=== PATIENT | female | born 2000 | race Hispanic/Latino ===

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

== ENCOUNTER 2021-03-12 21:15 | Emergency (ER) | payer SELFPAY ==
--- OUTSIDE RECORDS SUMMARY | 2021-03-12 21:23 | XMS REPORT | Continuity of Care Document ---
:2000 Author Organization [facility] t Address [address] [place] [address] Care Team Providers Name Role Phone Brendan COUGHLIN Attending Clinician Akinsidanyell WHCNP, C Attending Clinician DARIO C Attending Clinician Unavailable Cristian VARELA Attending Clinician Unavailable Evgeny Cobb MD Attending Clinician Mario DOYLE, N Attending Clinician Hussein FLORES Attending Clinician Unavailable Hussein Flores MD Attending Clinician 2, Lab Attending Clinician Unavailable Jorge A MARTIN Attending Clinician Unavailable Anders DOYLE, F Attending Clinician Visit, Nurse Attending Clinician Unavailable Payers Payer Name Policy Type Policy Number Effective Date Expiration Date [facility] [id number] 2018 [facility] MEDICAID 00:00:00 Problems Condition Condition Condition Status Onset Resolution Last Treating Co mments Source Name Details Category Date Date Treatment Clinician Date Other Other Disease Active Univers general general 8-02 [place] of counseling [place] advice and advice 00 Me dical for for Branch contracept contracept henrry henrry management management Chlamydia Chlamydia Disease Active Uni vers trachomati trachomati 9-25 it y of s s 00:00: [place] infection infection 00 Medi zofia of lower of lower Branch genitourin genitourin zainab sites zainab sites BMI BMI Disease Active Univers 23.0-23.9, 23.0-23.9, 9-24 it y of adult adult 00:00: Medical Branch Need for Need for Disease Active Unive rs HPV HPV 01-10 ity of vaccinatio vaccinatio 00:00[place] Marijuana Marijuana Disease Active Uni vers use use 01-10 ity of 00:00: [place] [facility] History of History of Disease Active U nivers headache headache 01-10 ity of 00:00: [place] [facility] Disease Active Univers control control 01-10 [place] of counseling counseling 00:00: [place] [facility] Allergies, Adverse Reactions, Alerts Allergy Allergy Status Severity Reaction(s) Onset Inactive Treating Comm ents Source Name Type Date Date Clinician Andre Propensi Active Swelling Jaw Univ ers h ty to 08 swells up ity of Derived adverse 00:00: [place] reaction 00 Medical s Branch SHELLFIS DRUG Active Swelling Univer s H INGREDI 08 ity of DERIVED 00:00: [place] [facility] NO KNOWN Drug Active Univers ALLERGIE Class ity of S [facility] Social History Social Habit Start Date Stop Date Quantity Comments Source Exposure to Not sure [facility] SARS-CoV-2 [place] [facility] (event) Branch History SDOH University o f Alcohol Std [place] [facility] Drinks Branch History [facility] University o f Alcohol Binge [place] [facility] Tobacco use and 2020-11-18 2020-11-18 Never used Universit y of exposure 00:00:00 00:00:00 [facility] Alcohol intake 2020-11-18 2020-11-18 Ex-drinker University of 00:00:00 00:00:00 (finding) [facility] Alcohol Comment 2020-04-03 2020-04-03 last drank Universit y of 00:00:00 00:00:00 02/2020 [facility] History SDOH 2019-01-10 2019-01-10 1 University o f Alcohol Frequency 00:00:00 00:00:00 [facility] edical [place] Sex Assigned At 2000 2001 Universit y of 00:00:00 00:00:00 [facility] Smoking Status Start Date Stop Date Source Never smoker [facility] [place] [facility] Medications Ordered Filled Start Stop Current Ordering Indication Dosage Frequency Signature Comments Components Source Medication Medication Date Date Medication? Clinician (SIG) Name Name cefTRIAXone 2020- No 1000mg 1,000 mg, Univers (ROCEPHIN) 12-03 IV ity of 1,000 mg in 07:45: 07:25 Piggyback, [place] NaCl 0.9% 00 :00 ONCE, 1 Medical (NS) 50 mL dose, [facility] MINI-BAG 12/03/20 at 0245, Administer over 30 Minutes, 50 mL
R mel for Anti-Infec tive: Documented Infection< br>Documen rhina Infection Site: Urine
D uration of Therapy: Other (see Comments) dexamethaso 2020- No 10mg 10 mg, Uni vers ne 12-03 Slow IV ity of (DECADRON 07:00: 06:05 Push, [place] PHOSPHATE) 00 :00 ONCE, 1 Medica l injection dose, [facility] h 10 mg 12/03/20 at 0200, Routine ketorolac 2020- No 30mg 30 mg, Unive rs (TORADOL) 12-03 Slow IV ity of injection 07:00: 06:05 Push, [place] 30 mg 00 :00 ONCE, 1 Medical dose, [facility] 12/03/20 at 0200, Routine
board member approving Restricted medication : RANJIT TIMMONS ketorolac Yes [id number] 10mg Take 1 Un jose antonio 10 mg 8-17 tablet by ity of tablet 00:00: mouth [place] 00 every 6 Medical (six) Branch hours as needed for Pain (scale 1-3) or Pain (scale 4-6). cephALEXin Yes [id number] 500mg Take 1 Univers (KEFLEX) 8-17 capsule by ity o f 500 mg 00:00: mouth 4 [place] capsule 00 (four) Medical times Branch daily. acetaminoph Yes Take by Un jose antonio en (TYLENOL 8-02 mouth. ity of ORAL) 21:07: [address] Branch acetaminoph Yes Take by Un jose antonio en (TYLENOL 8-02 mouth. ity of ORAL) 21:07: [address] acetaminoph 0 Yes Take by Un jose antonio en (TYLENOL 8-02 mouth. ity of ORAL) 21:07: [address] Branch doxycycline 2020-0 Yes [id number] 100mg Take 1 Univers hyclate 100 7-10 capsule by it y of mg capsule 00:00: mouth [place] (two) Medical times Branch daily. polyethylen 2020-0 Yes [id number] 1{packe Take 1 Univers e glycol 7-10 t} Packet by ity of 3350 00:00: mouth [place] (MIRALAX) 00 every 6 Medical 17 gram (six) Branch powder hours as needed for Constipati on for up to 12 doses. doxycycline 2020-0 Yes [id number] 100mg Take 1 Univers hyclate 100 7-10 capsule by it y of mg capsule 00:00: mouth [place] (two) Medical times Branch daily. polyethylen 2020-0 Yes [id number] 1{packe Take 1 Univers e glycol 7-10 t} Packet by ity of 3350 00:00: mouth [place] (MIRALAX) 00 every 6 Medical 17 gram (six) Branch powder hours as needed for Constipati on for up to 12 doses. doxycycline 2020-0 Yes [id number] 100mg Take 1 Univers hyclate 100 7-10 capsule by it y of mg capsule 00:00: mouth [place] (two) Medical times Branch daily. polyethylen 2020-0 Yes [id number] 1{packe Take 1 Univers e glycol 7-10 t} Packet by ity of 3350 00:00: mouth [place] (MIRALAX) 00 every 6 Medical 17 gram (six) Branch powder hours as needed for Constipati on for up to 12 doses. doxycycline 2020-0 Yes [id number] 100mg Take 1 Univers hyclate 100 7-10 capsule by it y of mg capsule 00:00: mouth 2 [place] 00 (two) Medical times Branch daily. polyethylen 2020-0 Yes [id number] 1{packe Take 1 Univers e glycol 7-10 t} Packet by ity of 3350 00:00: mouth [place] (MIRALAX) 00 every 6 Medical 17 gram (six) Branch powder hours as needed for Constipati on for up to 12 doses. doxycycline 2020-0 Yes [id number] 100mg Take 1 Univers hyclate 100 7-10 capsule by it y of mg capsule 00:00: mouth 2 [place] 00 (two) Medical times Branch daily. polyethylen Yes [id number] 1{packe Take 1 Univers e glycol 7-10 t} Packet by ity of 3350 00:00: mouth [place] (MIRALAX) 00 every 6 Medical 17 gram (six) Branch powder hours as needed for Constipati on for up to 12 doses. doxycycline Yes [id number] 100mg Take 1 Univers hyclate 100 7-10 capsule by it y of mg capsule 00:00: mouth 2 [place] 00 (two) Medical times Branch daily. polyethylen Yes [id number] 1{packe Take 1 Univers e glycol 7-10 t} Packet by ity of 3350 00:00: mouth [place] (MIRALAX) 00 every 6 Medical 17 gram (six) Branch powder hours as needed for Constipati on for up to 12 doses. doxycycline Yes [id number] 100mg Take 1 Univers hyclate 100 7-10 capsule by it y of mg capsule 00:00: mouth 2 [place] 00 (two) Medical times Branch daily. polyethylen Yes [id number] 1{packe Take 1 Univers e glycol 7-10 t} Packet by ity of 3350 00:00: mouth [place] (MIRALAX) 00 every 6 Medical 17 gram (six) Branch powder hours as needed for Constipati on for up to 12 doses. magnesium 2020- No [id number] 300mL Take 300 Univers citrate 7-10 07-11 mL by ity of solution 00:00: 04:59 [place] 00 :00 now for 1 Medical dose. Branch diphenhydrA 2020- No 25mg 25 mg, Uni vers MINE 09-24-08 Slow IV ity of (BENADRYL) 08:00: 07:37 [place], [place] injection 00 :00 ONCE, 1 Medical 25 mg dose, Tue Branch 09/24/20 at 0300, STAT metoclopram 2020- No 10mg 10 mg, Uni vers jose roberto HCl 09-24-08 Slow IV ity of (REGLAN) 08:00: 07:37 Push, [place] injection 00 :00 ONCE, 1 Medical 10 mg dose, Tue Branch 09/24/20 at 0300, GURDEEP ketorolac 2020- No 30mg 30 mg, Unive rs (TORADOL) 09-24 06-08 Slow IV ity of injection 08:00: 07:37 [place], [place] 30 mg 00 :00 ONCE, 1 Medical dose, [facility] Branch 09/24/20 at 0300, Routine
board member approving Restricted medication : RANJIT TIMMONS NaCl 0.9% 2020- No 1000mL at 999 Uni vers (NS) bolus 09-24 06-08 mL/hr, ity of infusion 08:00: 09:01 1,000 mL, [place] as 1,000 mL 00 :00 IV Medical Infusion, Branch ONCE, 1 dose, [facility] 09/24/20 at 0300, STAT diclofenac 0 Yes [id number] 75mg Take 1 U nivers 75 mg EC 6-08 tablet by ity of tablet 00:00: mouth 2 [place] 00 (two) Medical times Branch daily with meals. cefpodoxime Yes [id number] 100mg Take 1 Univers 100 mg 6-08 tablet by ity of tablet 00:00: mouth 2 [place] (two) Medical times [place] daily. hyoscyamine [id number] 1 Univers sulfate 6-08 tablet ity of (LEVSIN/SL) 00:00: under the [place] 0.125 mg 00 tongue Medical sublingual every 6 Branch tablet (six) hours as needed (abdominal pain, pelvic p[ain or cramping). ondansetron 0 Yes [id number] 4mg Take 1 Univers 4 mg 6-08 tablet by ity of disintegrat 00:00: mouth [place] ing tablet 00 every 8 Medica l (eight) Branch hours as needed for Nausea and Vomiting (N/V). acetaminoph 0 Yes [id number] 650mg Take 1 Univers en (TYLENOL 6-08 tablet by ity of ARTHRITIS 00:00: mouth [place] PAIN) 650 00 every 8 Medical mg CR (eight) Branch tablet hours as needed for Pain. diclofenac 2020-0 Yes [id number] 75mg Take 1 U nivers 75 mg EC 6-08 tablet by ity of tablet 00:00: mouth (two) Medical times Branch daily with meals. cefpodoxime 2020-0 Yes [id number] 100mg Take 1 Univers 100 mg 6-08 tablet by ity of tablet 00:00: mouth (two) Medical times Branch daily. hyoscyamine 2020-[id number] 1 Univers sulfate 6-08 tablet ity of (LEVSIN/SL) 00:00: under the [place] 0.125 mg 00 tongue Medical sublingual every 6 Branch tablet (six) hours as needed (abdominal pain, pelvic p[ain or cramping). ondansetron 2020-0 Yes [id number] 4mg Take 1 Univers 4 mg 6-08 tablet by ity of disintegrat 00:00: mouth [place] ing tablet 00 every 8 Medica l (eight) Branch hours as needed for Nausea and Vomiting (N/V). acetaminoph 2020-0 Yes [id number] 650mg Take 1 Univers en (TYLENOL 6-08 tablet by ity of ARTHRITIS 00:00: mouth [place] PAIN) 650 00 every 8 Medical mg CR (eight) Branch tablet hours as needed for Pain. diclofenac 2020-0 Yes [id number] 75mg Take 1 U nivers 75 mg EC 6-08 tablet by ity of tablet 00:00: mouth (two) Medical times Branch daily with meals. cefpodoxime 2020-0 Yes [id number] 100mg Take 1 Univers 100 mg 6-08 tablet by ity of tablet 00:00: mouth (two) Medical times Branch daily. hyoscyamine 2020-[id number] 1 Univers sulfate 6-08 tablet ity of (LEVSIN/SL) 00:00: under the [place] 0.125 mg 00 tongue Medical sublingual every 6 Branch tablet (six) hours as needed (abdominal pain, pelvic p[ain or cramping). ondansetron 2020-0 Yes [id number] 4mg Take 1 Univers 4 mg 6-08 tablet by ity of disintegrat 00:00: mouth [place] ing tablet 00 every 8 Medica l (eight) Branch hours as needed for Nausea and Vomiting (N/V). acetaminoph 2020-0 Yes [id number] 650mg Take 1 Univers en (TYLENOL 6-08 tablet by ity of ARTHRITIS 00:00: mouth [place] PAIN) 650 00 every 8 Medical mg CR (eight) Branch tablet hours as needed for Pain. diclofenac 2020-0 Yes [id number] 75mg Take 1 U nivers 75 mg EC 6-08 tablet by ity of tablet 00:00: mouth (two) Medical times Branch daily with meals. cefpodoxime 2020-0 Yes [id number] 100mg Take 1 Univers 100 mg 6-08 tablet by ity of tablet 00:00: mouth (two) Medical times Branch daily. hyoscyamine 2020-[id number] 1 Univers sulfate 6-08 tablet ity of (LEVSIN/SL) 00:00: under the [place] 0.125 mg 00 tongue Medical sublingual every 6 Branch tablet (six) hours as needed (abdominal pain, pelvic p[ain or cramping). ondansetron 2020-0 Yes [id number] 4mg Take 1 Univers 4 mg 6-08 tablet by ity of disintegrat 00:00: mouth [place] ing tablet 00 every 8 Medica l (eight) Branch hours as needed for Nausea and Vomiting (N/V). acetaminoph 2020-0 Yes [id number] 650mg Take 1 Univers en (TYLENOL 6-08 tablet by ity of ARTHRITIS 00:00: mouth [place] PAIN) 650 00 every 8 Medical mg CR (eight) Branch tablet hours as needed for Pain. diclofenac 2020-0 Yes [id number] 75mg Take 1 U nivers 75 mg EC 6-08 tablet by ity of tablet 00:00: mouth (two) Medical times Branch daily with meals. cefpodoxime 2020-0 Yes [id number] 100mg Take 1 Univers 100 mg 6-08 tablet by ity of tablet 00:00: mouth (two) Medical times Branch daily. hyoscyamine 2020-[id number] 1 Univers sulfate 6-08 tablet ity of (LEVSIN/SL) 00:00: under the [place] 0.125 mg 00 tongue Medical sublingual every 6 Branch tablet (six) hours as needed (abdominal pain, pelvic p[ain or cramping). ondansetron 2021-0 Yes [id number] 4mg Take 1 Univers 4 mg 6-08 tablet by ity of disintegrat 00:00: mouth [place] ing tablet 00 every 8 Medica l (eight) Branch hours as needed for Nausea and Vomiting (N/V). acetaminoph 2021-0 Yes [id number] 650mg Take 1 Univers en (TYLENOL 6-08 tablet by ity of ARTHRITIS 00:00: mouth [place] PAIN) 650 00 every 8 Medical mg CR (eight) Branch tablet hours as needed for Pain. diclofenac 2020-0 Yes [id number] 75mg Take 1 U nivers 75 mg EC 6-08 tablet by ity of tablet 00:00: mouth (two) Medical times Branch daily with meals. cefpodoxime 1-0 Yes [id number] 100mg Take 1 Univers 100 mg 6-08 tablet by ity of tablet 00:00: mouth (two) Medical times Branch daily. hyoscyamine 2020-[id number] 1 Univers sulfate 6-08 tablet ity of (LEVSIN/SL) 00:00: under the [place] 0.125 mg 00 tongue Medical sublingual every 6 Branch tablet (six) hours as needed (abdominal pain, pelvic p[ain or cramping). ondansetron 2020-0 Yes [id number] 4mg Take 1 Univers 4 mg 6-08 tablet by ity of disintegrat 00:00: mouth [place] ing tablet 00 every 8 Medica l (eight) Branch hours as needed for Nausea and Vomiting (N/V). acetaminoph 2020-0 Yes [id number] 650mg Take 1 Univers en (TYLENOL 6-08 tablet by ity of ARTHRITIS 00:00: mouth [place] PAIN) 650 00 every 8 Medical mg CR (eight) Branch tablet hours as needed for Pain. diclofenac 1-0 Yes [id number] 75mg Take 1 U nivers 75 mg EC 6-08 tablet by ity of tablet 00:00: mouth (two) Medical times Branch daily with meals. cefpodoxime 2021-0 Yes [id number] 100mg Take 1 Univers 100 mg 6-08 tablet by ity of tablet 00:00: mouth (two) Medical times Branch daily. hyoscyamine 2021-[id number] 1 Univers sulfate 6-08 tablet ity of (LEVSIN/SL) 00:00: under the [place] 0.125 mg 00 tongue Medical sublingual every 6 Branch tablet (six) hours as needed (abdominal pain, pelvic p[ain or cramping). ondansetron 2020-0 Yes [id number] 4mg Take 1 Univers 4 mg 6-08 tablet by ity of disintegrat 00:00: mouth [place] ing tablet 00 every 8 Medica l (eight) Branch hours as needed for Nausea and Vomiting (N/V). acetaminoph 2020-0 Yes [id number] 650mg Take 1 Univers en (TYLENOL 6-08 tablet by ity of ARTHRITIS 00:00: mouth [place] PAIN) 650 00 every 8 Medical mg CR (eight) Branch tablet hours as needed for Pain. diclofenac 2020-0 Yes [id number] 75mg Take 1 U nivers 75 mg EC 6-08 tablet by ity of tablet 00:00: mouth 2 00 (two) Medical times Branch daily with meals. cefpodoxime 2020-0 Yes [id number] 100mg Take 1 Univers 100 mg 6-08 tablet by ity of tablet 00:00: mouth 2 [place] 00 (two) Medical times Branch daily. hyoscyamine 2020-[id number] 1 Univers sulfate 6-08 tablet ity of (LEVSIN/SL) 00:00: under the [place] 0.125 mg 00 tongue Medical sublingual every 6 Branch tablet (six) hours as needed (abdominal pain, pelvic p[ain or cramping). ondansetron 2020-0 Yes [id number] 4mg Take 1 Univers 4 mg 6-08 tablet by ity of disintegrat 00:00: mouth [place] ing tablet 00 every 8 Medica l (eight) Branch hours as needed for Nausea and Vomiting (N/V). acetaminoph 2020-0 Yes [id number] 650mg Take 1 Univers en (TYLENOL 6-08 tablet by ity of ARTHRITIS 00:00: mouth [place] PAIN) 650 00 every 8 Medical mg CR (eight) Branch tablet hours as needed for Pain. diclofenac 2020-0 Yes [id number] 75mg Take 1 U nivers 75 mg EC 6-08 tablet by ity of tablet 00:00: mouth 2 [place] 00 (two) Medical times Branch daily with meals. cefpodoxime Yes [id number] 100mg Take 1 Univers 100 mg 6-08 tablet by ity of tablet 00:00: mouth 2 [place] 00 (two) Medical times Branch daily. hyoscyamine [id number] 1 Univers sulfate 6-08 tablet ity of (LEVSIN/SL) 00:00: under the [place] 0.125 mg 00 tongue Medical sublingual every 6 Branch tablet (six) hours as needed (abdominal pain, pelvic p[ain or cramping). ondansetron Yes [id number] 4mg Take 1 Univers 4 mg 6-08 tablet by ity of disintegrat 00:00: mouth [place] ing tablet 00 every 8 Medica l (eight) Branch hours as needed for Nausea and Vomiting (N/V). acetaminoph Yes [id number] 650mg Take 1 Univers en (TYLENOL 6-08 tablet by ity of ARTHRITIS 00:00: mouth [place] PAIN) 650 00 every 8 Medical mg CR (eight) Branch tablet hours as needed for Pain. metroNIDAZO 2019-04 Yes [id number] 500mg Take 1 Univers LE 500 mg 2-22 tablet by ity o f tablet 00:00: mouth [place] 00 every 12 Medical (twelve) Branch hours. metroNIDAZO 2019-04 Yes [id number] 500mg Take 1 Univers LE 500 mg 2-22 tablet by ity o f tablet 00:00: mouth [place] 00 every 12 Medical (twelve) Branch hours. metroNIDAZO 2019-04 Yes [id number] 500mg Take 1 Univers LE 500 mg 2-22 tablet by ity o f tablet 00:00: mouth [place] 00 every 12 Medical (twelve) Branch hours. metroNIDAZO 2019-04 Yes [id number] 500mg Take 1 Univers LE 500 mg 2-22 tablet by ity o f tablet 00:00: mouth [place] 00 every 12 Medical (twelve) Branch hours. metroNIDAZO 2019-04 Yes [id number] 500mg Take 1 Univers LE 500 mg 2-22 tablet by ity o f tablet 00:00: mouth [place] 00 every 12 Medical (twelve) Branch hours. metroNIDAZO 2019-04 Yes [id number] 500mg Take 1 Univers LE 500 mg 2-22 tablet by ity o f tablet 00:00: mouth [place] 00 every 12 Medical (twelve) Branch hours. metroNIDAZO 2020-1 Yes [id number] 500mg Take 1 Univers LE 500 mg 2-22 tablet by ity o f tablet 00:00: mouth [place] 00 every 12 Medical (twelve) Branch hours. metroNIDAZO 2020-1 Yes [id number] 500mg Take 1 Univers LE 500 mg 2-22 tablet by ity o f tablet 00:00: mouth [place] 00 every 12 Medical (twelve) Branch hours. metroNIDAZO 2020-1 Yes [id number] 500mg Take 1 Univers LE 500 mg 2-22 tablet by ity o f tablet 00:00: mouth [place] 00 every 12 Medical (twelve) Branch hours. metroNIDAZO 2020-1 Yes [id number] 500mg Take 1 Univers LE 500 mg 2-22 tablet by ity o f tablet 00:00: mouth [place] 00 every 12 Medical (twelve) Branch hours. metroNIDAZO 2020-1 Yes [id number] 500mg Take 1 Univers LE 500 mg 2-22 tablet by ity o f tablet 00:00: mouth [place] 00 every 12 Medical (twelve) Branch hours. maalox:diph 2019- 2020- No 15mL 15 mL, Uni vers enhydrAMINE 12-10 Oral, ity of :lidocaine 21:15: 20:26 ONCE, 1 [place] as 2 % viscous 00 :00 dose, Mon Med ical 1:1:1 12/11/19 at [place] ([facility] 1615, [facility]) Routine oral suspension 15 mL ketorolac 2019- No 30mg 30 mg, Unive rs (TORADOL) 12-10 Intramuscu ity of injection 21:15: 20:26 [place], ONCE, [place] 30 mg 00 :00 1 dose, Medical [facility] 12/11/19 at 1615, [facility] : DENNIS HUNTER dexamethaso 2019- No 10mg 10 mg, Uni vers ne 12-10 Oral, ity of (DECADRON 21:15: 20:26 ONCE, 1 [place] PHOSPHATE) 00 :00 dose, Mon Medi zofia injection 8/24/20 at [facility] ch 10 mg 1615, Routine cephALEXin 2020- No [id number] 500mg Take 1 Univers 500 mg 12-10 capsule by ity of capsule 00:00: 04:59 mouth 2 [place] 00 :00 (two) Medical times Branch daily for 10 days. azithromyci 2019- No [id number] 1000mg Take 2 Univers n 3-06 03-07 tablets by ity of (ZITHROMAX) 00:00: 05:59 mouth once [place] 500 mg 00 :00 now for 1 Medical tablet dose. Branch medroxyPROG 2018-04 Yes 150mg Unive rs ESTERone 0-08 ity of (DEPO-PROVE 13:45: [place] RA) 00 Medical injection Branch 150 mg medroxyPROG 2018-04 Yes 150mg Unive rs ESTERone 0-08 ity of (DEPO-PROVE 13:45: [place] RA) 00 Medical injection Branch 150 mg medroxyPROG 2018-04 Yes 150mg Unive rs ESTERone 0-08 ity of (DEPO-PROVE 13:45: [place] RA) 00 Medical injection Branch 150 mg medroxyPROG 2018-04 Yes 150mg Unive rs ESTERone 0-08 ity of (DEPO-PROVE 13:45: [place] RA) 00 Medical injection Branch 150 mg medroxyPROG 2018-04 Yes 150mg Unive rs ESTERone 0-08 ity of (DEPO-PROVE 13:45: [place] RA) 00 Medical injection Branch 150 mg medroxyPROG 2018-04 Yes 150mg Unive rs ESTERone 0-08 ity of (DEPO-PROVE 13:45: [place] RA) 00 Medical injection Branch 150 mg medroxyPROG 2018-04 Yes 150mg Unive rs ESTERone 0-08 ity of (DEPO-PROVE 13:45: [place] RA) 00 Medical injection Branch 150 mg medroxyPROG 2018-04 Yes 150mg Unive rs ESTERone 0-08 ity of (DEPO-PROVE 13:45: [place] RA) 00 Medical injection Branch 150 mg medroxyPROG 2018-04 Yes 150mg Unive rs ESTERone 0-08 ity of (DEPO-PROVE 13:45: [place] RA) 00 Medical injection Branch 150 mg medroxyPROG 2018-04 Yes 150mg Unive rs ESTERone 0-08 ity of (DEPO-PROVE 13:45: [place] RA) 00 Medical injection Branch 150 mg medroxyPROG 2018-04 Yes 150mg Unive rs ESTERone 0-08 ity of (DEPO-PROVE 13:45: [place] RA) 00 Medical injection Branch 150 mg medroxyPROG 2018-04 Yes 150mg Unive rs ESTERone 0-08 ity of (DEPO-PROVE 13:45: [place] RA) 00 Medical injection Branch 150 mg medroxyPROG 2018-04 Yes 150mg Unive rs ESTERone 0-08 ity of (DEPO-PROVE 13:45: [place] RA) 00 Medical injection Branch 150 mg medroxyPROG 2018-04 Yes 150mg Unive rs ESTERone 0-08 ity of (DEPO-PROVE 13:45: [place] RA) 00 Medical injection Branch 150 mg medroxyPROG 2018-04 Yes 150mg Unive rs ESTERone 0-08 ity of (DEPO-PROVE 13:45: [place] RA) 00 Medical injection Branch 150 mg medroxyPROG 2018-04 Yes 150mg Unive rs ESTERone 0-08 ity of (DEPO-PROVE 13:45: [place] RA) 00 Medical injection Branch 150 mg medroxyPROG 2018-04 Yes 150mg Unive rs ESTERone 0-08 ity of (DEPO-PROVE 13:45: [place] RA) 00 Medical injection Branch 150 mg medroxyPROG 2018-04 Yes 150mg Unive rs ESTERone 0-08 ity of (DEPO-PROVE 13:45: [place] RA) 00 Medical injection Branch 150 mg medroxyPROG 2018-04 Yes 150mg Unive rs ESTERone 0-08 ity of (DEPO-PROVE 13:45: [place] RA) 00 Medical injection Branch 150 mg Immunizations Ordered Immunization Filled Immunization Date Status Commen ts Source Name Name HPV9 2019-06-14 Completed University of 00:00:00 [facility] HPV9 2019-06-14 Completed University of 00:00:00 [facility] HPV9 2019-06-14 Completed University of 00:00:00 [facility] HPV9 2019-06-14 Completed University of 00:00:00 [facility] HPV9 2019-06-14 Completed University of 00:00:00 [facility] HPV9 2019-06-14 Completed University of 00:00:00 [facility] HPV9 2019-06-14 Completed University of 00:00:00 [facility] HPV9 2019-06-14 Completed University of 00:00:00 [place] [facility] HPV9 2019-06-14 Completed University of 00:00:00 [place] [facility] HPV9 2019-06-14 Completed University of 00:00:00 [place] [facility] HPV9 2019-06-14 Completed University of 00:00:00 [place] [facility] HPV9 2019-06-14 Completed University of 00:00:00 [place] [facility] HPV9 2019-06-14 Completed University of 00:00:00 [place] [facility] HPV9 2019-06-14 Completed University of 00:00:00 [place] [facility] HPV9 2019-06-14 Completed University of 00:00:00 [place] [facility] HPV9 2019-06-14 Completed University of 00:00:00 [place] [facility] HPV9 2019-06-14 Completed University of 00:00:00 [place] [facility] HPV9 2019-06-14 Completed University of 00:00:00 [place] [facility] HPV9 2019-06-14 Completed [facility] 00:00:00 [facility] Influenza Virus 2019-04-18 Completed [facility] Vaccine Quad .5 mL 00:00:00 [facility] Influenza Virus 2019-04-18 Completed [facility] Vaccine Quad .5 mL 00:00:00 [facility] Influenza Virus 2019-04-18 Completed [facility]ine Quad .5 mL 00:00:00 [facility] Influenza Virus 2019-04-18 Completed [facility]ine [facility] .5 mL 00:00:00 [facility] Influenza Virus 2019-04-18 Completed [facility]ine Quad .5 mL 00:00:00 [facility] Influenza Virus 2019-04-18 Completed [facility] Vaccine Quad .5 mL 00:00:00 [facility] Influenza Virus 2019-04-18 Completed [facility]ine Quad .5 mL 00:00:00 [facility] Influenza Virus 2019-04-18 Completed [facility]ine [facility] .5 mL 00:00:00 [facility] Influenza Virus 2019-04-18 Completed [facility] Vaccine Quad .5 mL 00:00:00 [facility] Influenza Virus 2019-04-18 Completed [facility] Vaccine Quad .5 mL 00:00:00 [facility] Influenza Virus 2019-04-18 Completed [facility] Vaccine Quad .5 mL 00:00:00 [facility] Influenza Virus 2019-04-18 Completed [facility] Vaccine Quad .5 mL 00:00:00 [facility] Influenza Virus 2019-04-18 Completed [facility] Vaccine Quad .5 mL 00:00:00 [facility] Influenza Virus 2019-04-18 Completed [facility] Quad .5 mL 00:00:00 [facility] Influenza Virus 2019-04-18 Completed [facility] Vaccine Quad .5 mL 00:00:00 [facility] Influenza Virus 2019-04-18 Completed [facility]ine Quad .5 mL 00:00:00 [facility] Influenza Virus 2019-04-18 Completed [facility] Vaccine Quad .5 mL 00:00:00 [facility] 6+ MO [facility] Influenza Virus 2019-04-18 Completed [facility] Vaccine Quad .5 mL 00:00:00 [facility] 6+ MO [facility] Influenza Virus 2019-04-18 Completed [facility] Vaccine Quad .5 mL 00:00:00 [facility] 6+ MO [facility] Influenza Virus 2017-01-20 Completed [facility] of Vaccine 00:00:00 [facility] Influenza Virus 2017-01-20 Completed [facility] of Vaccine 00:00:00 [facility] Influenza Virus 2017-01-20 Completed [facility] of Vaccine 00:00:00 [facility] Influenza Virus 2017-01-20 Completed [facility] of Vaccine 00:00:00 [facility] Influenza Virus 2017-01-20 Completed [facility] of Vaccine 00:00:00 [facility] Influenza Virus 2017-01-20 Completed [facility] Vaccine 00:00:00 [facility] Influenza Virus 2017-01-20 Completed [facility] of Vaccine 00:00:00 [facility] Influenza Virus 2017-01-20 Completed [facility] of Vaccine 00:00:00 [facility] Influenza Virus 2017-01-20 Completed [facility] of Vaccine 00:00:00 [facility] Influenza Virus 2017-01-20 Completed [facility] of Vaccine 00:00:00 [facility] Influenza Virus 2017-01-20 Completed [facility] of Vaccine 00:00:00 [facility] Influenza Virus 2017-01-20 Completed [facility] of Vaccine 00:00:00 [facility] Influenza Virus 2017-01-20 Completed [facility] of Vaccine 00:00:00 [facility] Influenza Virus 2017-01-20 Completed [facility] of Vaccine 00:00:00 [facility] Influenza Virus 2017-01-20 Completed [facility] of Vaccine 00:00:00 [facility] Influenza Virus 2017-01-20 Completed [facility] of Vaccine 00:00:00 [facility] Influenza Virus 2017-01-20 Completed [facility] of Vaccine 00:00:00 [facility] Influenza Virus 2017-01-20 Completed [facility] of Vaccine 00:00:00 [facility] Influenza Virus 2017-01-20 Completed [facility] of Vaccine 00:00:00 [facility] Meningococcal 2014-12-11 Completed [facility] of Vaccine 00:00:00 [facility] Tdap 2014-12-11 Completed [facility] 00:00:00 [facility] Varicella 2014-12-11 Completed [facility] (varivax)(chicken 00:00:00 [facility] pox) [facility] TDAP (ADACEL) 2014-12-11 Completed [facility] of VACCINE 00:00:00 [facility] HPV 2014-12-11 Completed [facility] 00:00:00 [facility] Meningococcal 2014-12-11 Completed [facility] of Vaccine 00:00:00 [facility] Tdap 2014-12-11 Completed [facility] 00:00:00 [facility] Varicella 2014-12-11 Completed [facility] (varivax)(chicken 00:00:00 [facility] pox) [facility] TDAP (ADACEL) 2014-12-11 Completed [facility] of VACCINE 00:00:00 [facility] HPV 2014-12-11 Completed [facility] 00:00:00 [facility] Meningococcal 2014-12-11 Completed [facility] of Vaccine 00:00:00 [facility] Tdap 2014-12-11 Completed [facility] 00:00:00 [facility] Varicella 2014-12-11 Completed [facility] (varivax)(chicken 00:00:00 [facility] pox[facility] TDAP (ADACEL) 2014-12-11 Completed [facility] VACCINE 00:00:00 [facility] HPV 2014-12-11 Completed [facility] 00:00:00 [facility] Meningococcal 2014-12-11 Completed [facility] of Vaccine 00:00:00 [facility] Tdap 2014-12-11 Completed [facility] 00:00:00 [facility] Varicella 2014-12-11 Completed [facility] (varivax)(chicken 00:00:00 [facility] pox) [facility] TDAP (ADACEL) 2014-12-11 Completed [facility] VACCINE 00:00:00 [facility] HPV 2014-12-11 Completed [facility] 00:00:00 [facility] Meningococcal 2014-12-11 Completed [facility] of Vaccine 00:00:00 [facility] Tdap 2014-12-11 Completed [facility] 00:00:00 [facility] Varicella 2014-12-11 Completed [facility] (varivax)(chicken 00:00:00 [facility] pox) [facility] TDAP (ADACEL) 2014-12-11 Completed [facility] of VACCINE 00:00:00 [facility] HPV 2014-12-11 Completed [facility] 00:00:00 [facility] Meningococcal 2014-12-11 Completed [facility] of Vaccine 00:00:00 [facility] TDAP 2014-12-11 Completed [facility] 00:00:00 [facility] Varicella 2014-12-11 Completed [facility] (varivax)(chicken 00:00:00 [facility] pox) [facility] TDAP (ADACEL) 2014-12-11 Completed [facility] of VACCINE 00:00:00 [facility] HPV 2014-12-11 Completed [facility] 00:00:00 [facility] Meningococcal 2014-12-11 Completed [facility] of Vaccine 00:00:00 [facility] TDAP 2014-12-11 Completed [facility] 00:00:00 [facility] Varicella 2014-12-11 Completed [facility] (varivax)(chicken 00:00:00 [facility] pox) [facility] TDAP (ADACEL) 2014-12-11 Completed [facility] of VACCINE 00:00:00 [facility] HPV 2014-12-11 Completed [facility] 00:00:00 [facility] Meningococcal 2014-12-11 Completed [facility] of Vaccine 00:00:00 [facility] TDAP 2014-12-11 Completed [facility] 00:00:00 [facility] Varicella 2014-12-11 Completed [facility] (varivax)(chicken 00:00:00 [facility] pox) [facility] TDAP (ADACEL) 2014-12-11 Completed [facility] of VACCINE 00:00:00 [facility] HPV 2014-12-11 Completed [facility] 00:00:00 [facility] Meningococcal 2014-12-11 Completed [facility] of Vaccine 00:00:00 [facility] TDAP 2014-12-11 Completed [facility] 00:00:00 [facility] Varicella 2014-12-11 Completed [facility] (varivax)(chicken 00:00:00 [facility] pox) [facility] TDAP (ADACEL) 2014-12-11 Completed [facility] of VACCINE 00:00:00 [facility] HPV 2014-12-11 Completed [facility] 00:00:00 [facility] Meningococcal 2014-12-11 Completed [facility] of Vaccine 00:00:00 [facility] TDAP 2014-12-11 Completed [facility] 00:00:00 [facility] Varicella 2014-12-11 Completed [facility] (varivax)(chicken 00:00:00 [facility] pox) [facility] TDAP (ADACEL) 2014-12-11 Completed [facility] of VACCINE 00:00:00 [facility] HPV 2014-12-11 Completed [facility] of 00:00:00 [facility] Meningococcal 2014-12-11 Completed [facility] of Vaccine 00:00:00 [facility] TDAP 2014-12-11 Completed [facility] 00:00:00 [facility] Varicella 2014-12-11 Completed [facility] (varivax)(chicken 00:00:00 [facility] pox) [facility] TDAP (ADACEL) 2014-12-11 Completed [facility] of VACCINE 00:00:00 [facility] HPV 2014-12-11 Completed [facility] 00:00:00 [facility] Meningococcal 2014-12-11 Completed [facility] of Vaccine 00:00:00 [facility] TDAP 2014-12-11 Completed [facility] 00:00:00 [facility] Varicella 2014-12-11 Completed [facility] (varivax)(chicken 00:00:00 [facility] pox) [facility] TDAP (ADACEL) 2014-12-11 Completed [facility] of VACCINE 00:00:00 [facility] HPV 2014-12-11 Completed [facility] 00:00:00 [facility] Meningococcal 2014-12-11 Completed [facility] of Vaccine 00:00:00 [facility] TDAP 2014-12-11 Completed [facility] 00:00:00 [facility] Varicella 2014-12-11 Completed [facility] (varivax)(chicken 00:00:00 [facility] pox) [facility] TDAP (ADACEL) 2014-12-11 Completed [facility] of VACCINE 00:00:00 [facility] HPV 2014-12-11 Completed [facility] 00:00:00 [facility] Meningococcal 2014-12-11 Completed [facility] of Vaccine 00:00:00 [facility] TDAP 2014-12-11 Completed [facility] 00:00:00 [facility] Varicella 2014-12-11 Completed [facility] (varivax)(chicken 00:00:00 [facility] pox) [facility] TDAP (ADACEL) 2014-12-11 Completed [facility] of VACCINE 00:00:00 [facility] HPV 2014-12-11 Completed [facility] 00:00:00 [facility] Meningococcal 2014-12-11 Completed [facility] of Vaccine 00:00:00 [facility] TDAP 2014-12-11 Completed [facility] 00:00:00 [facility] Varicella 2014-12-11 Completed [facility] (varivax)(chicken 00:00:00 [facility]ox[facility] TDAP (ADACEL) 2014-12-11 Completed [facility] of VACCINE 00:00:00 [facility] HPV 2014-12-11 Completed [facility] 00:00:00 [facility] Meningococcal 2014-12-11 Completed [facility] of Vaccine 00:00:00 [facility] TDAP 2014-12-11 Completed [facility] 00:00:00 [facility] Varicella 2014-12-11 Completed [facility] (varivax)(chicken 00:00:00 [facility] pox) [facility] TDAP (ADACEL) 2014-12-11 Completed [facility] of VACCINE 00:00:00 [facility] HPV 2014-12-11 Completed [facility] 00:00:00 [facility] Meningococcal 2014-12-11 Completed [facility] of Vaccine 00:00:00 [facility] TDAP 2014-12-11 Completed [facility] 00:00:00 [facility] Varicella 2014-12-11 Completed [facility] (varivax)(chicken 00:00:00 [facility] pox) [facility] TDAP (ADACEL) 2014-12-11 Completed [facility] of VACCINE 00:00:00 [facility] HPV 2014-12-11 Completed [facility] 00:00:00 [facility] Meningococcal 2014-12-11 Completed [facility] of Vaccine 00:00:00 [facility] TDAP 2014-12-11 Completed [facility] 00:00:00 [facility] Varicella 2014-12-11 Completed [facility] (varivax)(chicken 00:00:00 [facility] pox[facility] TDAP (ADACEL) 2014-12-11 Completed [facility] of VACCINE 00:00:00 [facility] TDAP (ADACEL) 2014-12-11 Completed [facility] of VACCINE 00:00:00 [facility] HPV 2014-12-11 Completed [facility] 00:00:00 [facility] HPV 2014-12-11 Completed [facility] 00:00:00 [facility] Meningococcal 2014-12-11 Completed [facility] of Vaccine 00:00:00 [facility] TDAP 2014-12-11 Completed [facility] 00:00:00 [facility] Varicella 2014-12-11 Completed [facility] (varivax)(chicken 00:00:00 [facility] pox[facility] HEPATITIS A 2006-08-18 Completed [facility] 00:00:00 [facility] HEPATITIS A 2006-08-18 Completed [facility] 00:00:00 [facility] HEPATITIS A 2006-08-18 Completed [facility] 00:00:00 [facility] HEPATITIS A 2006-08-18 Completed [facility] 00:00:00 [facility] HEPATITIS A 2006-08-18 Completed [facility] 00:00:00 [facility] HEPATITIS A 2006-08-18 Completed [facility] 00:00:00 [facility] HEPATITIS A 2006-08-18 Completed [facility] 00:00:00 [facility] HEPATITIS A 2006-08-18 Completed [facility] 00:00:00 [facility] HEPATITIS A 2006-08-18 Completed [facility] 00:00:00 [facility] HEPATITIS A 2006-08-18 Completed [facility] 00:00:00 [facility] HEPATITIS A 2006-08-18 Completed [facility] 00:00:00 [facility] HEPATITIS A 2006-08-18 Completed [facility] 00:00:00 [facility] HEPATITIS A 2006-08-18 Completed [facility] 00:00:00 [facility] HEPATITIS A 2006-08-18 Completed [facility] 00:00:00 [facility] HEPATITIS A 2006-08-18 Completed [facility] 00:00:00 [facility] HEPATITIS A 2006-08-18 Completed [facility] 00:00:00 [facility] HEPATITIS A 2006-08-18 Completed [facility] 00:00:00 [facility] HEPATITIS A 2006-08-18 Completed [facility] 00:00:00 [facility] HEPATITIS A 2006-08-18 Completed [facility] 00:00:00 [facility] Polio (IPV/OPV) 2005-11-20 Completed [facility] 00:00:00 [facility] Polio (IPV/OPV) 2005-11-20 Completed [facility] 00:00:00 [facility] Polio (IPV/OPV) 2005-11-20 Completed [facility] 00:00:00 [facility] Polio (IPV/OPV) 2005-11-20 Completed [facility] 00:00:00 [facility] Polio (IPV/OPV) 2005-11-20 Completed [facility] 00:00:00 [facility] Polio (IPV/OPV) 2005-11-20 Completed [facility] 00:00:00 [facility] Polio (IPV/OPV) 2005-11-20 Completed [facility] 00:00:00 [facility] Polio (IPV/OPV) 2005-11-20 Completed [facility] 00:00:00 [facility] Polio (IPV/OPV) 2005-11-20 Completed [facility] 00:00:00 [facility] Polio (IPV/OPV) 2005-11-20 Completed [facility] 00:00:00 [facility] Polio (IPV/OPV) 2005-11-20 Completed [facility] 00:00:00 [facility] Polio (IPV/OPV) 2005-11-20 Completed [facility] 00:00:00 [facility] Polio (IPV/OPV) 2005-11-20 Completed [facility] of 00:00:00 [facility] Polio (IPV/OPV) 2005-11-20 Completed [facility] 00:00:00 [facility] Polio (IPV/OPV) 2005-11-20 Completed [facility] 00:00:00 [facility] Polio (IPV/OPV) 2005-11-20 Completed [facility] 00:00:00 [facility] Polio (IPV/OPV) 2005-11-20 Completed [facility] of 00:00:00 [facility] Polio (IPV/OPV) 2005-11-20 Completed [facility] of 00:00:00 [facility] Polio (IPV/OPV) 2005-11-20 Completed [facility] of 00:00:00 [facility] HEPATITIS A 2005-08-03 Completed [facility] of 00:00:00 [facility] MMR 2005-08-03 Completed [facility] 00:00:00 [facility] Pneumococcal 13 2005-08-03 Completed Univers[facility] y of Conjugate, PCV13 00:00:00 [facility] (Prevnar 13) [facility] DTAP 2005-08-03 Completed [facility] 00:00:00 [facility] HEPATITIS A 2005-08-03 Completed [facility] 00:00:00 [facility] MMR 2005-08-03 Completed [facility] 00:00:00 [facility] Pneumococcal 13 2005-08-03 Completed [facility] of Conjugate, PCV13 00:00:00 [facility] (Prevnar 13) [facility] DTAP 2005-08-03 Completed [facility] 00:00:00 [facility] HEPATITIS A 2005-08-03 Completed [facility] of 00:00:00 [facility] MMR 2005-08-03 Completed [facility] 00:00:00 [facility] Pneumococcal 13 2005-08-03 Completed [facility] of Conjugate, PCV13 00:00:00 [facility] (Prevnar 13) [facility] DTAP 2005-08-03 Completed [facility] 00:00:00 [facility] HEPATITIS A 2005-08-03 Completed [facility] 00:00:00 [facility] 2005-08-03 Completed [facility] of 00:00:00 [facility] Pneumococcal 13 2005-08-03 Completed [facility] of Conjugate, PCV13 00:00:00 [place] [facility] (Prevnar 13) [facility] DTAP 2005-08-03 Completed [facility] 00:00:00 [facility] HEPATITIS A 2005-08-03 Completed [facility] of 00:00:00 [facility] MMR 2005-08-03 Completed [facility] 00:00:00 [facility] Pneumococcal 13 2005-08-03 Completed [facility] of Conjugate, PCV13 00:00:00 [place] [facility] (Prevnar 13) [facility] DTAP 2005-08-03 Completed [facility] 00:00:00 [facility] HEPATITIS A 2005-08-03 Completed [facility] 00:00:00 [facility] MMR 2005-08-03 Completed [facility] 00:00:00 [facility] Pneumococcal 13 2005-08-03 Completed [facility] of Conjugate, PCV13 00:00:00 [facility] (Prevnar 13) [facility] DTAP 2005-08-03 Completed [facility] 00:00:00 [facility] HEPATITIS A 2005-08-03 Completed [facility] 00:00:00 [facility] MMR 2005-08-03 Completed [facility] 00:00:00 [facility] Pneumococcal 13 2005-08-03 Completed Univers[facility] y of Conjugate, PCV13 00:00:00 [facility] (Prevnar 13) [facility] DTAP 2005-08-03 Completed [facility] 00:00:00 [facility] HEPATITIS A 2005-08-03 Completed [facility] 00:00:00 [facility] MMR 2005-08-03 Completed [facility] 00:00:00 [facility] Pneumococcal 13 2005-08-03 Completed Universit y of Conjugate, PCV13 00:00:00 [facility] (Prevnar 13) Branch DTAP 2005-08-03 Completed [facility] of 00:00:00 [facility] HEPATITIS A 2005-08-03 Completed [facility] of 00:00:00 [facility] MMR 2005-08-03 Completed [facility] of 00:00:00 [facility] Pneumococcal 13 2005-08-03 Completed Universit y of Conjugate, PCV13 00:00:00 [facility] (Prevnar 13) Branch DTAP 2005-08-03 Completed [facility] of 00:00:00 [facility] HEPATITIS A 2005-08-03 Completed [facility] of 00:00:00 [facility] MMR 2005-08-03 Completed [facility] of 00:00:00 [facility] Pneumococcal 13 2005-08-03 Completed Universit y of Conjugate, PCV13 00:00:00 [facility]ical (Prevnar 13) Branch DTAP 2005-08-03 Completed [facility] of 00:00:00 [facility] HEPATITIS A 2005-08-03 Completed [facility] 00:00:00 [facility] MMR 2005-08-03 Completed [facility] 00:00:00 [facility] Pneumococcal 13 2005-08-03 Completed [facility] of Conjugate, PCV13 00:00:00 [place] [facility] (Prevnar 13) [facility] DTAP 2005-08-03 Completed [facility] 00:00:00 [facility] HEPATITIS A 2005-08-03 Completed [facility] 00:00:00 [facility] MMR 2005-08-03 Completed [facility] 00:00:00 [facility] Pneumococcal 13 2005-08-03 Completed [facility] of Conjugate, PCV13 00:00:00 [place] [facility] (Prevnar 13) [facility] DTAP 2005-08-03 Completed [facility] 00:00:00 [facility] HEPATITIS A 2005-08-03 Completed [facility] 00:00:00 [facility] MMR 2005-08-03 Completed [facility] 00:00:00 [facility] Pneumococcal 13 2005-08-03 Completed [facility] of Conjugate, PCV13 00:00:00 [place] [facility] (Prevnar 13) Branch DTAP 2005-08-03 Completed [facility] 00:00:00 [facility] HEPATITIS A 2005-08-03 Completed [facility] 00:00:00 [facility] MMR 2005-08-03 Completed [facility] 00:00:00 [facility] Pneumococcal 13 2005-08-03 Completed [facility] of Conjugate, PCV13 00:00:00 [place] [facility] (Prevnar 13) Branch DTAP 2005-08-03 Completed [facility] 00:00:00 [facility] HEPATITIS A 2005-08-03 Completed [facility] of 00:00:00 [facility] MMR 2005-08-03 Completed [facility] of 00:00:00 [facility] Pneumococcal 13 2005-08-03 Completed [facility] of Conjugate, PCV13 00:00:00 [place] [facility] (Prevnar 13) Branch DTAP 2005-08-03 Completed [facility] 00:00:00 [facility] HEPATITIS A 2005-08-03 Completed [facility] 00:00:00 [facility] 2005-08-03 Completed [facility] of 00:00:00 [facility] Pneumococcal 13 2005-08-03 Completed Universit y of Conjugate, PCV13 00:00:00 [facility] dical (Prevnar 13) Branch DTAP 2005-08-03 Completed [facility] of 00:00:00 [facility] HEPATITIS A 2005-08-03 Completed [facility] of 00:00:00 [facility] MMR 2005-08-03 Completed [facility] 00:00:00 [facility] Pneumococcal 13 2005-08-03 Completed [facility] of Conjugate, PCV13 00:00:00 [place] [facility] (Prevnar 13) [facility] DTAP 2005-08-03 Completed [facility] 00:00:00 [facility] HEPATITIS A 2005-08-03 Completed [facility] of 00:00:00 [facility] MMR 2005-08-03 Completed [facility] 00:00:00 [facility] Pneumococcal 13 2005-08-03 Completed [facility] of Conjugate, PCV13 00:00:00 [place] [facility] (Prevnar 13) Branch DTAP 2005-08-03 Completed [facility] 00:00:00 [facility] HEPATITIS A 2005-08-03 Completed [facility] of 00:00:00 [facility] MMR 2005-08-03 Completed [facility] of 00:00:00 [facility] Pneumococcal 13 2005-08-03 Completed Universit [facility] of Conjugate, PCV13 00:00:00 [facility] (Prevnar 13) Branch DTAP 2005-08-03 Completed [facility] of 00:00:00 [facility] DTAP 2003-11-29 Completed [facility] of 00:00:00 [facility] HIB 4 Dose Schedule 2003-11-29 Completed Unive rsity of 00:00:00 [facility] DTAP 2003-11-29 Completed [facility] 00:00:00 [facility] HIB 4 Dose Schedule 2003-11-29 Completed [facility] 00:00:00 [facility] [facility] DTAP 2003-11-29 Completed [facility] 00:00:00 [facility] HIB 4 Dose Schedule 2003-11-29 Completed [facility] 00:00:00 [facility] DTAP 2003-11-29 Completed [facility] 00:00:00 [facility] HIB 4 Dose Schedule 2003-11-29 Completed [facility] 00:00:00 [facility] DTAP 2003-11-29 Completed [facility] 00:00:00 [facility] HIB 4 Dose Schedule 2003-11-29 Completed [facility] 00:00:00 [facility] DTAP 2003-11-29 Completed [facility] 00:00:00 [facility] HIB 4 Dose Schedule 2003-11-29 Completed [facility] 00:00:00 [facility] DTAP 2003-11-29 Completed [facility] 00:00:00 [facility] HIB 4 Dose Schedule 2003-11-29 Completed [facility] 00:00:00 [facility] DTAP 2003-11-29 Completed [facility] 00:00:00 [facility] HIB 4 Dose Schedule 2003-11-29 Completed [facility] 00:00:00 [facility] DTAP 2003-11-29 Completed [facility] 00:00:00 [facility] HIB 4 Dose Schedule 2003-11-29 Completed [facility] 00:00:00 [facility] DTAP 2003-11-29 Completed [facility] 00:00:00 [facility] HIB 4 Dose Schedule 2003-11-29 Completed [facility] 00:00:00 [facility] DTAP 2003-11-29 Completed [facility] 00:00:00 [facility] HIB 4 Dose Schedule 2003-11-29 Completed [facility] 00:00:00 [facility] DTAP 2003-11-29 Completed [facility] 00:00:00 [facility] HIB 4 Dose Schedule 2003-11-29 Completed [facility] 00:00:00 [facility] DTAP 2003-11-29 Completed [facility] 00:00:00 [facility] HIB 4 Dose Schedule 2003-11-29 Completed [facility] 00:00:00 [facility] DTAP 2003-11-29 Completed [facility] 00:00:00 [facility] HIB 4 Dose Schedule 2003-11-29 Completed [facility] 00:00:00 [facility] DTAP 2003-11-29 Completed [facility] 00:00:00 [facility] HIB 4 Dose Schedule 2003-11-29 Completed [facility] 00:00:00 [facility] DTAP 2003-11-29 Completed [facility] 00:00:00 [facility] HIB 4 Dose Schedule 2003-11-29 Completed [facility] 00:00:00 [facility] DTAP 2003-11-29 Completed [facility] 00:00:00 [facility] HIB 4 Dose Schedule 2003-11-29 Completed [facility] 00:00:00 [facility] DTAP 2003-11-29 Completed [facility] 00:00:00 [facility] HIB 4 Dose Schedule 2003-11-29 Completed [facility] 00:00:00 [facility] DTAP 2003-11-29 Completed [facility] 00:00:00 [facility] HIB 4 Dose Schedule 2003-11-29 Completed [facility] 00:00:00 [facility] MMR 2002 Completed [facility] 00:00:00 [facility] Varicella 2002 Completed [facility] (varivax)(chicken 00:00:00 [place] [facility] DTAP 2002 Completed [facility] 00:00:00 [facility] HIB 4 Dose Schedule 2002 Completed [facility] 00:00:00 [facility] MMR 2002 Completed [facility] 00:00:00 [facility] Varicella 2002 Completed [facility] (varivax)(chicken 00:00:00 [place] [facility] DTAP 2002 Completed [facility] 00:00:00 [facility] HIB 4 Dose Schedule 2002 Completed [facility] 00:00:00 [facility] MMR 2002 Completed [facility] 00:00:00 [facility] Varicella 2002 Completed [facility] (varivax)(chicken 00:00:00 [place] [facility] DTAP 2002 Completed [facility] 00:00:00 [facility] HIB 4 Dose Schedule 2002 Completed [facility] 00:00:00 [facility] MMR 2002 Completed [facility] 00:00:00 [facility] Varicella 2002 Completed [facility] (varivax)(chicken 00:00:00 [place] [facility] DTAP 2002 Completed [facility] 00:00:00 [facility] HIB 4 Dose Schedule 2002 Completed [facility] 00:00:00 [facility] MMR 2002 Completed [facility] 00:00:00 [facility] Varicella 2002 Completed [facility] (varivax)(chicken 00:00:00 [place] [facility] DTAP 2002 Completed [facility] 00:00:00 [facility] HIB 4 Dose Schedule 2002 Completed [facility] 00:00:00 [facility] MMR 2002 Completed [facility] 00:00:00 [facility] Varicella 2002 Completed [facility] (varivax)(chicken 00:00:00 [place] [facility] DTAP 2002 Completed [facility] 00:00:00 [facility] HIB 4 Dose Schedule 2002 Completed [facility] 00:00:00 [facility] MMR 2002 Completed [facility] 00:00:00 [facility] Varicella 2002 Completed [facility] (varivax)(chicken 00:00:00 [place] [facility] DTAP 2002 Completed [facility] 00:00:00 [facility] HIB 4 Dose Schedule 2002 Completed [facility] 00:00:00 [facility] MMR 2002 Completed [facility] 00:00:00 [facility] Varicella 2002 Completed [facility] (varivax)(chicken 00:00:00 [place] [facility] DTAP 2002 Completed [facility] 00:00:00 [facility] HIB 4 Dose Schedule 2002 Completed [facility] 00:00:00 [facility] MMR 2002 Completed [facility] 00:00:00 [facility] Varicella 2002 Completed [facility] (varivax)(chicken 00:00:00 [place] [facility] DTAP 2002 Completed [facility] 00:00:00 [facility] HIB 4 Dose Schedule 2002 Completed [facility] 00:00:00 [facility] MMR 2002 Completed [facility] 00:00:00 [facility] Varicella 2002 Completed [facility] (varivax)(chicken 00:00:00 [place] [facility] DTAP 2002 Completed [facility] 00:00:00 [facility] HIB 4 Dose Schedule 2002 Completed [facility] 00:00:00 [facility] MMR 2002 Completed [facility] 00:00:00 [facility] Varicella 2002 Completed [facility] (varivax)(chicken 00:00:00 [place] [facility] DTAP 2002 Completed [facility] 00:00:00 [facility] HIB 4 Dose Schedule 2002 Completed [facility] 00:00:00 [facility] MMR 2002 Completed [facility] 00:00:00 [facility] Varicella 2002 Completed [facility] (varivax)(chicken 00:00:00 [place] [facility] DTAP 2002 Completed [facility] 00:00:00 [facility] HIB 4 Dose Schedule 2002 Completed [facility] 00:00:00 [facility] MMR 2002 Completed [facility] 00:00:00 [facility] Varicella 2002 Completed [facility] (varivax)(chicken 00:00:00 [place] [facility] DTAP 2002 Completed [facility] 00:00:00 [facility] HIB 4 Dose Schedule 2002 Completed [facility] 00:00:00 [facility] MMR 2002 Completed [facility] 00:00:00 [facility] Varicella 2002 Completed [facility] (varivax)(chicken 00:00:00 [place] [facility] DTAP 2002 Completed [facility] 00:00:00 [facility] HIB 4 Dose Schedule 2002 Completed [facility] 00:00:00 [facility] MMR 2002 Completed [facility] 00:00:00 [facility] Varicella 2002 Completed [facility] (varivax)(chicken 00:00:00 [place] [facility] DTAP 2002 Completed [facility] 00:00:00 [facility] HIB 4 Dose Schedule 2002 Completed [facility] 00:00:00 [facility] MMR 2002 Completed [facility] 00:00:00 [facility] Varicella 2002 Completed [facility] (varivax)(chicken 00:00:00 [place] [facility] DTAP 2002 Completed [facility] 00:00:00 [facility] HIB 4 Dose Schedule 2002 Completed [facility] 00:00:00 [facility] MMR 2002 Completed [facility] 00:00:00 [facility] Varicella 2002 Completed [facility] (varivax)(chicken 00:00:00 [place] [facility] DTAP 2002 Completed [facility] 00:00:00 [facility] HIB 4 Dose Schedule 2002 Completed [facility] 00:00:00 [facility] MMR 2002 Completed [facility] 00:00:00 [facility] Varicella 2002 Completed [facility] (varivax)(chicken 00:00:00 [place] [facility] DTAP 2002 Completed [facility] 00:00:00 [facility] HIB 4 Dose Schedule 2002 Completed [facility] 00:00:00 [facility] MMR 2002 Completed [facility] 00:00:00 [facility] Varicella 2002 Completed [facility] (varivax)(chicken 00:00:00 [place] [facility] DTAP 2002 Completed [facility] 00:00:00 [facility] HIB 4 Dose Schedule 2002 Completed [facility] 00:00:00 [facility] Hep B, Adol or Pedi 2001 Completed [facility] Dosage 00:00:00 [facility] Polio (IPV/OPV) 2001 Completed [facility] 00:00:00 [facility] DTAP 2001 Completed [facility] 00:00:00 [facility] HIB 4 Dose Schedule 2001 Completed [facility] 00:00:00 [facility] Hep B, Adol or Pedi 2001 Completed [facility] Dosage 00:00:00 [facility] Polio (IPV/OPV) 2001 Completed [facility] 00:00:00 [facility] DTAP 2001 Completed [facility] 00:00:00 [facility] HIB 4 Dose Schedule 2001 Completed [facility] 00:00:00 [facility] Hep B, Adol or Pedi 2001 Completed [facility] Dosage 00:00:00 [facility] Polio (IPV/OPV) 2001 Completed [facility] 00:00:00 [facility] DTAP 2001 Completed [facility] 00:00:00 [facility] HIB 4 Dose Schedule 2001 Completed [facility] 00:00:00 [facility] Hep B, Adol or Pedi 2001 Completed [facility] Dosage 00:00:00 [facility] Polio (IPV/OPV) 2001 Completed [facility] 00:00:00 [facility] DTAP 2001 Completed [facility] 00:00:00 [facility] HIB 4 Dose Schedule 2001 Completed [facility] 00:00:00 [facility] Hep B, Adol or Pedi 2001 Completed [facility] Dosage 00:00:00 [facility] Polio (IPV/OPV) 2001 Completed [facility] 00:00:00 [facility] DTAP 2001 Completed [facility] 00:00:00 [facility] HIB 4 Dose Schedule 2001 Completed [facility] 00:00:00 [facility] Hep B, Adol or Pedi 2001 Completed [facility] Dosage 00:00:00 [facility] Polio (IPV/OPV) 2001 Completed [facility] 00:00:00 [facility] DTAP 2001 Completed [facility] 00:00:00 [facility] HIB 4 Dose Schedule 2001 Completed [facility] 00:00:00 [facility] Hep B, Adol or Pedi 2001 Completed [facility] Dosage 00:00:00 [facility] Polio (IPV/OPV) 2001 Completed [facility] 00:00:00 [facility] DTAP 2001 Completed [facility] 00:00:00 [facility] HIB 4 Dose Schedule 2001 Completed [facility] 00:00:00 [facility] Hep B, Adol or Pedi 2001 Completed [facility] Dosage 00:00:00 [facility] Polio (IPV/OPV) 2001 Completed [facility] 00:00:00 [facility] DTAP 2001 Completed [facility] 00:00:00 [facility] HIB 4 Dose Schedule 2001 Completed [facility] 00:00:00 [facility] Hep B, Adol or Pedi 2001 Completed [facility] Dosage 00:00:00 [facility] Polio (IPV/OPV) 2001 Completed [facility] 00:00:00 [facility] DTAP 2001 Completed [facility] 00:00:00 [facility] HIB 4 Dose Schedule 2001 Completed [facility] 00:00:00 [facility] Hep B, Adol or Pedi 2001 Completed [facility] Dosage 00:00:00 [facility] Polio (IPV/OPV) 2001 Completed [facility] 00:00:00 [facility] DTAP 2001 Completed [facility] 00:00:00 [facility] HIB 4 Dose Schedule 2001 Completed [facility] 00:00:00 [facility] Hep B, Adol or Pedi 2001 Completed [facility] Dosage 00:00:00 [facility] Polio (IPV/OPV) 2001 Completed [facility] 00:00:00 [facility] DTAP 2001 Completed [facility] 00:00:00 [facility] HIB 4 Dose Schedule 2001 Completed [facility] 00:00:00 [facility] Hep B, Adol or Pedi 2001 Completed [facility] Dosage 00:00:00 [facility] Polio (IPV/OPV) 2001 Completed [facility] 00:00:00 [facility] DTAP 2001 Completed [facility] 00:00:00 [facility] HIB 4 Dose Schedule 2001 Completed [facility] 00:00:00 [facility] Hep B, Adol or Pedi 2001 Completed [facility] Dosage 00:00:00 [facility] Polio (IPV/OPV) 2001 Completed [facility] 00:00:00 [facility] DTAP 2001 Completed [facility] 00:00:00 [facility] HIB 4 Dose Schedule 2001 Completed [facility] 00:00:00 [facility] Hep B, Adol or Pedi 2001 Completed [facility] Dosage 00:00:00 [facility] Polio (IPV/OPV) 2001 Completed [facility] 00:00:00 [facility] DTAP 2001 Completed [facility] 00:00:00 [facility] HIB 4 Dose Schedule 2001 Completed [facility] 00:00:00 [facility] Hep B, Adol or Pedi 2001 Completed [facility] Dosage 00:00:00 [facility] Polio (IPV/OPV) 2001 Completed [facility] 00:00:00 [facility] DTAP 2001 Completed [facility] 00:00:00 [facility] HIB 4 Dose Schedule 2001 Completed [facility] 00:00:00 [facility] Hep B, Adol or Pedi 2001 Completed [facility] Dosage 00:00:00 [facility] Polio (IPV/OPV) 2001 Completed [facility] 00:00:00 [facility] DTAP 2001 Completed [facility] 00:00:00 [facility] HIB 4 Dose Schedule 2001 Completed [facility] 00:00:00 [facility] Hep B, Adol or Pedi 2001 Completed [facility] Dosage 00:00:00 [facility] Polio (IPV/OPV) 2001 Completed [facility] 00:00:00 [facility] DTAP 2001 Completed [facility] 00:00:00 [facility] HIB 4 Dose Schedule 2001 Completed [facility] 00:00:00 [facility] Hep B, Adol or Pedi 2001 Completed [facility] Dosage 00:00:00 [facility] Polio (IPV/OPV) 2001 Completed [facility] 00:00:00 [facility] DTAP 2001 Completed [facility] 00:00:00 [facility] HIB 4 Dose Schedule 2001 Completed [facility] 00:00:00 [facility] Hep B, Adol or Pedi 2001 Completed [facility] Dosage 00:00:00 [facility] Polio (IPV/OPV) 2001 Completed [facility] 00:00:00 [facility] DTAP 2001 Completed [facility] 00:00:00 [facility] HIB 4 Dose Schedule 2001 Completed [facility] 00:00:00 [facility] DTAP 2001 Completed [facility] 00:00:00 [facility] HIB 4 Dose Schedule 2001 Completed [facility] 00:00:00 [facility] Polio (IPV/OPV) 2001 Completed [facility] 00:00:00 [facility] DTAP 2001 Completed [facility] 00:00:00 [facility] HIB 4 Dose Schedule 2001 Completed [facility] 00:00:00 [facility] Polio (IPV/OPV) 2001 Completed [facility] 00:00:00 [facility] DTAP 2001 Completed [facility] 00:00:00 [facility] HIB 4 Dose Schedule 2001 Completed [facility] 00:00:00 [facility] Polio (IPV/OPV) 2001 Completed [facility] 00:00:00 [facility] DTAP 2001 Completed [facility] 00:00:00 [facility] HIB 4 Dose Schedule 2001 Completed [facility] 00:00:00 [facility] Polio (IPV/OPV) 2001 Completed [facility] 00:00:00 [facility] DTAP 2001 Completed [facility] 00:00:00 [facility] HIB 4 Dose Schedule 2001 Completed [facility] 00:00:00 [facility] Polio (IPV/OPV) 2001 Completed [facility] 00:00:00 [facility] DTAP 2001 Completed [facility] 00:00:00 [facility] HIB 4 Dose Schedule 2001 Completed [facility] 00:00:00 [facility] Polio (IPV/OPV) 2001 Completed [facility] 00:00:00 [facility] DTAP 2001 Completed [facility] 00:00:00 [facility] HIB 4 Dose Schedule 2001 Completed [facility] 00:00:00 [facility] Polio (IPV/OPV) 2001 Completed [facility] 00:00:00 [facility] DTAP 2001 Completed [facility] 00:00:00 [facility] HIB 4 Dose Schedule 2001 Completed [facility] 00:00:00 [facility] Polio (IPV/OPV) 2001 Completed [facility] 00:00:00 [facility] DTAP 2001 Completed [facility] 00:00:00 [facility] HIB 4 Dose Schedule 2001 Completed [facility] 00:00:00 [facility] Polio (IPV/OPV) 2001 Completed [facility] 00:00:00 [facility] DTAP 2001 Completed [facility] 00:00:00 [facility] HIB 4 Dose Schedule 2001 Completed [facility] 00:00:00 [facility] Polio (IPV/OPV) 2001 Completed [facility] 00:00:00 [facility] DTAP 2001 Completed [facility] 00:00:00 [facility] HIB 4 Dose Schedule 2001 Completed [facility] 00:00:00 [facility] Polio (IPV/OPV) 2001 Completed [facility] 00:00:00 [facility] DTAP 2001 Completed [facility] 00:00:00 [facility] HIB 4 Dose Schedule 2001 Completed [facility] 00:00:00 [facility] Polio (IPV/OPV) 2001 Completed [facility] 00:00:00 [facility] DTAP 2001 Completed [facility] 00:00:00 [facility] HIB 4 Dose Schedule 2001 Completed [facility] 00:00:00 [facility] Polio (IPV/OPV) 2001 Completed [facility] 00:00:00 [facility] DTAP 2001 Completed [facility] 00:00:00 [facility] HIB 4 Dose Schedule 2001 Completed [facility] 00:00:00 [facility] Polio (IPV/OPV) 2001 Completed [facility] 00:00:00 [facility] DTAP 2001 Completed [facility] 00:00:00 [facility] HIB 4 Dose Schedule 2001 Completed [facility] 00:00:00 [facility] Polio (IPV/OPV) 2001 Completed [facility] 00:00:00 [facility] DTAP 2001 Completed [facility] 00:00:00 [facility] HIB 4 Dose Schedule 2001 Completed [facility] 00:00:00 [facility] Polio (IPV/OPV) 2001 Completed [facility] 00:00:00 [facility] DTAP 2001 Completed [facility] 00:00:00 [facility] HIB 4 Dose Schedule 2001 Completed [facility] 00:00:00 [facility] Polio (IPV/OPV) 2001 Completed [facility] 00:00:00 [facility] DTAP 2001 Completed [facility] 00:00:00 [facility] HIB 4 Dose Schedule 2001 Completed [facility] 00:00:00 [facility] Polio (IPV/OPV) 2001 Completed [facility] 00:00:00 [facility] DTAP 2001 Completed [facility] 00:00:00 [facility] HIB 4 Dose Schedule 2001 Completed [facility] 00:00:00 [facility] Polio (IPV/OPV) 2001 Completed [facility] 00:00:00 [facility] Hep B, Adol or Pedi 2001 Completed [facility] Dosage 00:00:00 [facility] Hep B, Adol or Pedi 2001 Completed [facility] Dosage 00:00:00 [facility] Hep B, Adol or Pedi 2001 Completed [facility] Dosage 00:00:00 [facility] Hep B, Adol or Pedi 2001 Completed [facility] Dosage 00:00:00 [facility] Hep B, Adol or Pedi 2001 Completed [facility] Dosage 00:00:00 [facility] Hep B, Adol or Pedi 2001 Completed [facility] Dosage 00:00:00 [facility] Hep B, Adol or Pedi 2001 Completed [facility] Dosage 00:00:00 [facility] Hep B, Adol or Pedi 2001 Completed [facility] Dosage 00:00:00 [facility] Hep B, Adol or Pedi 2001 Completed [facility] Dosage 00:00:00 [facility] Hep B, Adol or Pedi 2001 Completed [facility] Dosage 00:00:00 [facility] Hep B, Adol or Pedi 2001 Completed [facility] Dosage 00:00:00 [facility] Hep B, Adol or Pedi 2001 Completed [facility] Dosage 00:00:00 [facility] Hep B, Adol or Pedi 2001 Completed [facility] Dosage 00:00:00 [facility] Hep B, Adol or Pedi 2001 Completed [facility] Dosage 00:00:00 [facility] Hep B, Adol or Pedi 2001 Completed [facility] Dosage 00:00:00 [facility] Hep B, Adol or Pedi 2001 Completed [facility] Dosage 00:00:00 [facility] Hep B, Adol or Pedi 2001 Completed [facility] Dosage 00:00:00 [facility] Hep B, Adol or Pedi 2001 Completed [facility] Dosage 00:00:00 [facility] Hep B, Adol or Pedi 2001 Completed [facility] Dosage 00:00:00 [facility] Hep B, Adol or Pedi 2001 Completed [facility] Dosage 00:00:00 [facility] Hep B, Adol or Pedi 2001 Completed [facility] Dosage 00:00:00 [facility] Hep B, Adol or Pedi 2001 Completed [facility] Dosage 00:00:00 [facility] Hep B, Adol or Pedi 2001 Completed [facility] Dosage 00:00:00 [facility] Hep B, Adol or Pedi 2001 Completed [facility] Dosage 00:00:00 [facility] Hep B, Adol or Pedi 2001 Completed [facility] Dosage 00:00:00 [facility] Hep B, Adol or Pedi 2001 Completed [facility] Dosage 00:00:00 [facility] Hep B, Adol or Pedi 2001 Completed Unive rsity of Dosage 00:00:00 [facility] Hep B, Adol or Pedi 2001 Completed Unive rsity of Dosage 00:00:00 [facility] Hep B, Adol or Pedi 2001 Completed Unive rsity of Dosage 00:00:00 [facility] Hep B, Adol or Pedi 2001 Completed Unive rsity of Dosage 00:00:00 [facility] Hep B, Adol or Pedi 2001 Completed Unive rsity of Dosage 00:00:00 [facility] Hep B, Adol or Pedi 2001 Completed Unive rsity of Dosage 00:00:00 [facility] Hep B, Adol or Pedi 2001 Completed Unive rsity of Dosage 00:00:00 [facility] Hep B, Adol or Pedi 2001 Completed Unive rsity of Dosage 00:00:00 [facility] Hep B, Adol or Pedi 2001 Completed Unive rsity of Dosage 00:00:00 [facility] Hep B, Adol or Pedi 2001 Completed Unive rsity of Dosage 00:00:00 [facility] Hep B, Adol or Pedi 2001 Completed Unive rsity of Dosage 00:00:00 [facility] Hep B, Adol or Pedi 2001 Completed Unive rsity of Dosage 00:00:00 [facility] Polio (IPV/OPV) 2001 Completed Universit y of 00:00:00 [facility] Polio (IPV/OPV) 2001 Completed Universit y of 00:00:00 [facility] Polio (IPV/OPV) 2001 Completed Universit y of 00:00:00 [facility] Polio (IPV/OPV) 2001 Completed Universit y of 00:00:00 [facility] Polio (IPV/OPV) 2001 Completed Universit y of 00:00:00 [facility] Polio (IPV/OPV) 2001 Completed Universit y of 00:00:00 [facility] Polio (IPV/OPV) 2001 Completed Universit y of 00:00:00 [facility] Polio (IPV/OPV) 2001 Completed Universit y of 00:00:00 [facility] Polio (IPV/OPV) 2001 Completed Universit y of 00:00:00 [facility] Polio (IPV/OPV) 2001 Completed Universit y of 00:00:00 [facility] Polio (IPV/OPV) 2001 Completed Universit y of 00:00:00 [facility] Polio (IPV/OPV) 2001 Completed Universit y of 00:00:00 [facility] Polio (IPV/OPV) 2001 Completed Universit y of 00:00:00 [facility] Polio (IPV/OPV) 2001 Completed Universit y of 00:00:00 [facility] Polio (IPV/OPV) 2001 Completed Universit y of 00:00:00 [facility] Polio (IPV/OPV) 2001 Completed Universit y of 00:00:00 [facility] Polio (IPV/OPV) 2001 Completed Universit y of 00:00:00 [facility] Polio (IPV/OPV) 2001 Completed Universit y of 00:00:00 [facility] Polio (IPV/OPV) 2001 Completed Universit y of 00:00:00 [facility] Vital Signs Vital Name Observation Time Observation Value Comments Source Systolic blood 2020-12-03 07:27:09 112 mm[Hg] Univer sity of pressure [facility] Diastolic blood 2020-12-03 07:27:09 67 mm[Hg] Unive rsity of [facility] Heart rate 2020-12-03 07:27:09 76 /min [facility] Body temperature 2020-12-03 07:27:[address] [facility] Respiratory rate 2020-12-03 07:27:09 15 /min [facility] Oxygen saturation in 2020-12-03 07:27:09 100 /min [facility] Arterial blood by [facility] Body height 2020-12-03 04:39:00 162.6 cm [facility] Body weight 2020-12-03 04:39:00 65.318 kg [facility] BMI 2020-12-03 04:39:00 24.72 kg/m2 [facility] Systolic blood 2020-11-18 20:45:00 114 mm[Hg] Univer sity of pressure [facility] Diastolic blood 2020-11-18 20:45:00 77 mm[Hg] Unive rsity of pressure [facility] Heart rate 2020-11-18 20:45:00 85 /min [facility] Body temperature 2020-11-18 20:45:00 36.5 Stacy [facility] Res[facility] rate 2020-11-18 20:45:00 16 /min [facility] Body height 2020-11-18 20:45:00 162.6 cm Universi ty of [facility] Body weight 2020-11-18 20:45:00 65.063 kg [facility]i ty of [facility] BMI 2020-11-18 20:45:00 24.62 kg/m2 Universi ty of [facility] Systolic blood 2020-11-16 18:29:00 116 mm[Hg] Univer sity of pressure [facility] Diastolic blood 2020-11-16 18:29:00 81 mm[Hg] Unive rsity of pressure [facility] Heart rate 2020-11-16 18:29:00 88 /min Universi ty of [facility] Body temperature 2020-11-16 18:29:00 36.72 Stacy Univ ersity of [facility] Respiratory rate 2020-11-16 18:29:00 18 /min Univ ersity of [facility] Body height 2020-11-16 18:29:00 162.6 cm Universi ty of [facility] Body weight 2020-11-16 18:29:00 65.772 kg [facility]i [facility] BMI 2020-11-16 18:29:00 24.89 kg/m2 Universi ty of [facility] Oxygen saturation in 2020-11-16 18:29:00 100 /min University Arterial blood by [facility] Systolic blood 2020-10-26 18:29:00 154 mm[Hg] Univer sity of pressure [facility] Diastolic blood 2020-10-26 18:29:00 54 mm[Hg] Unive rsity of pressure [facility] Heart rate 2020-10-26 18:29:00 67 /min Universi ty of [facility] Body temperature 2020-10-26 18:29:00 36.89 Stacy Univ ersity of [facility] Respiratory rate 2020-10-26 18:29:00 18 /min Univ ersity of [facility] Body height 2020-10-26 18:29:00 162.6 cm [facility]i ty [facility] Body weight 2020-10-26 18:29:00 65.772 kg [facility]i ty of [facility] BMI 2020-10-26 18:29:00 24.89 kg/m2 Universi ty of [facility] Oxygen saturation in 2020-10-26 18:29:00 100 /min University of Arterial blood by [facility] [employer] [facility] Systolic blood 2020-09-24 09:01:49 115 mm[Hg] Univer sity of pressure [facility] Diastolic blood 2020-09-24 09:01:49 69 mm[Hg] Unive rsity of pressure [facility] Heart rate 2020-09-24 09:01:49 72 /min Universi ty of [facility] Respiratory rate 2020-09-24 09:01:49 18 /min Univ ersity of [facility] Oxygen saturation in 2020-09-24 09:01:49 100 /min University of Arterial blood by [facility] Body temperature 2020-09-24 05:26:00 37.22 Stacy Univ ersity of [facility] Body height 2020-09-24 05:26:00 162.6 cm Universi ty of [facility] Body weight 2020-09-24 05:26:00 65.318 kg [facility]i [facility] BMI 2020-09-24 05:26:00 24.72 kg/m2 [facility] Systolic blood 2020-04-03 15:47:00 132 mm[Hg] Univer sity of pressure [facility] Diastolic blood 2020-04-03 15:47:00 83 mm[Hg] Unive rsity of pressure [facility] Heart rate 2020-04-03 15:47:00 100 /min Universi ty of [facility] Body temperature 2020-04-03 15:47:00 36.94 Stacy Univ ersity of [facility] Respiratory rate 2020-04-03 15:47:00 18 /min Univ ersity of [facility] Body height 2020-04-03 15:47:00 162.6 cm [facility]i [facility] Body weight 2020-04-03 15:47:00 62.596 kg [facility] BMI 2020-04-03 15:47:00 23.69 kg/m2 [facility] Systolic blood 2020-04-03 15:47:00 132 mm[Hg] Univer sity of pressure [facility] Diastolic blood 2020-04-03 15:47:00 83 mm[Hg] Unive rsity of pressure [facility] Heart rate 2020-04-03 15:47:00 100 /min Universi ty of [facility] Body temperature 2020-04-03 15:47:00 36.94 Stacy Univ ersity of [facility] Respiratory rate 2020-04-03 15:47:00 18 /min Univ ersity of [facility] Body height 2020-04-03 15:47:00 162.6 cm [facility] Body weight 2020-04-03 15:47:00 62.596 kg [facility] BMI 2020-04-03 15:47:00 23.69 kg/m2 [facility] Systolic blood 2019-12-11 19:12:00 120 mm[Hg] Univer sity of pressure [facility] Diastolic blood 2019-12-11 19:12:00 90 mm[Hg] Unive rsity of pressure [facility] Heart rate 2019-12-11 19:12:00 80 /min [facility]i ty [facility] Body temperature 2019-12-11 19:12:00 36.11 Stacy Univ ersity of [facility] Respiratory rate 2019-12-11 19:12:00 18 /min Univ ersity of [facility] Body weight 2019-12-11 19:12:00 63.504 kg [facility]i ty of [facility] Oxygen saturation in 2019-12-11 19:12:00 100 /min University of Arterial blood by [facility] Systolic blood 2019-12-11 19:12:00 120 mm[Hg] Univer sity of pressure [facility] Diastolic blood 2019-12-11 19:12:00 90 mm[Hg] Unive rsity of pressure [facility] Heart rate 2019-12-11 19:12:00 80 /min [facility]i ty of [facility] Body temperature 2019-12-11 19:12:00 36.11 Stacy Univ ersity of [facility] Respiratory rate 2019-12-11 19:12:00 18 /min Univ ersity of [facility] Body weight 2019-12-11 19:12:00 63.504 kg [facility]i [facility] of [facility] Oxygen saturation in 2019-12-11 19:12:00 100 /min University of Arterial blood by [facility] Systolic blood 2019-06-22 17:02:00 107 mm[Hg] Univer sity of pressure [facility] Diastolic blood 2019-06-22 17:02:00 70 mm[Hg] Unive rsity of pressure [facility] Heart rate 2019-06-22 17:02:00 95 /min Universi ty of [facility] Body temperature 2019-06-22 17:02:00 36.72 Stacy Univ ersity of [facility] Respiratory rate 2019-06-22 17:02:00 16 /min Univ ersity of [facility] Body height 2019-06-22 17:02:00 162.6 cm Universi ty of [facility] Body weight 2019-06-22 17:02:00 62.795 kg [facility]i [facility] BMI 2019-06-22 17:02:00 23.76 kg/m2 [facility] Systolic blood 2019-06-22 17:02:00 107 mm[Hg] Univer sity of pressure [facility] Diastolic blood 2019-06-22 17:02:00 70 mm[Hg] Unive rsity of pressure [facility] Heart rate 2019-06-22 17:02:00 95 /min [facility]i ty of [facility] Body temperature 2019-06-22 17:02:00 36.72 Stacy Univ [facility] of [facility] Respiratory rate 2019-06-22 17:02:00 16 /min Univ ersity of [facility] Body height 2019-06-22 17:02:00 162.6 cm [facility] Body weight 2019-06-22 17:02:00 62.795 kg [facility]i [facility] of [facility] BMI 2019-06-22 17:02:00 23.76 kg/m2 [facility] of [facility] Systolic blood 2019-06-14 14:52:00 121 mm[Hg] Univer sity of pressure [facility] Diastolic blood 2019-06-14 14:52:00 78 mm[Hg] Unive rsity of pressure [facility] Heart rate 2019-06-14 14:52:00 89 /min [facility]i ty [facility] Body temperature 2019-06-14 14:52:00 37 Stacy Univ ersity of [facility] Respiratory rate 2019-06-14 14:52:00 16 /min Univ ersity of [facility] Body height 2019-06-14 14:52:00 162.6 cm [facility] Body weight 2019-06-14 14:52:00 63.277 kg [facility] BMI 2019-06-14 14:52:00 23.95 kg/m2 [facility] Procedures Procedure Date / Time Performed Performing Clinician Sour e URINALYSIS 2020-12-03 06:07:[address] [facility] D-DIMER 2020-12-03 05:14:[address] [facility] TROPONIN I 2020-12-03 05:13:[address] [facility] COVID-19 (ID NOW RAPID 2020-12-03 05:13:00 Ranjit Timmons [facility] TESTING) [facility] [place] XR CHEST 2 VW 2020-12-03 04:57:[address] [facility] ASSIGNMENT OF BENEFITS 2020-12-03 04:33:26 Doctor Unassigned, No [facility] CONSENT/REFUSAL FOR 2020-12-03 04:32:14 Doctor Unassigned, No [facility] [place] DIAGNOSIS AND [facility] TREATMENT CONSENT/REFUSAL FOR 2020-11-16 18:26:19 Doctor Unassigned, No [facility] [place] DIAGNOSIS AND [facility] TREATMENT CONSENT/REFUSAL FOR 2020-10-26 18:19:49 Doctor Unassigned, No [facility] [place] DIAGNOSIS AND Name [facility] TREATMENT POCT TEST 2020-09-24 07:36:00 Ranjit Timmons [facility] CBC WITH DIFF 2020-09-24 07:24:[address] [facility] URINALYSIS 2020-09-24 07:24:[address] [facility] COMP. METABOLIC PANEL 2020-09-24 07:23:00 Ranjit Timmons [facility] ([id number]) [facility] [place] ASSIGNMENT OF BENEFITS 2020-09-24 06:17:30 Doctor Unassigned, No [facility] CONSENT/REFUSAL FOR 2020-09-24 05:23:49 Doctor Unassigned, No Un iversity [facility] DIAGNOSIS AND [facility] TREATMENT GC & CHLAMYDIA 2020-04-03 17:07:00 AdAlda vargas o f [place] AMPLIFIED ASSAY [facility] POCT TEST 2020-04-03 00:00:00 AdAlda vargas [facility] POCT TEST 2019-12-11 20:20:[address] [facility] RAPID STREP SCREEN FOR 2019-12-11 20:06:00 Dennis Hunter [facility] A [facility] NOTICE OF PRIVACY 2019-12-11 19:06:48 Doctor Unassigned, No [facility] Name [facility] CONSENT/REFUSAL FOR 2019-12-11 19:05:58 Doctor Unassigned, No [facility] AND Name [facility] TREATMENT GARDASIL 9 (HPV 9V) 2019-06-14 14:53:48 Maggie [facility] Encounters Start End Encounter Admission Attending Care Care Encounter Source Date/Time Date/Time Type Type Clinicians Facility Department ID 2021-02-17 Emergency [facility] [id number] Univers 15:58:24 ity of [facility] 2021-02-17 Emergency [facility] [id number] Univers 12:12:23 ity of [facility] 2021-02-17 Emergency [facility] [id number] Univers 07:16:52 ity of [facility] 2021-02-16 Emergency [facility] [id number] Univers 23:43:50 ity of [facility] 2021-02-14 Emergency [facility] [id number] Univers 14:12:20 ity [facility] 2020-12-02 2020-12-03 Emergency [facility] [id number] Univers 23:41:00 02:29:00 [facility] [id number] it y of [place] [id number] [facility] [phone] [address] ([facility]) 2020-11-18 2020-11-18 [facility] [id number] Univers 15:36:25 16:49:17 Visit Mariah Rubio MANAGER STORAGE [id number] [facility] [id number] Kevyn as MATERNAL [phone] [facility] & [address] 2020-11-18 2020-11-18 Outpatient R DARIO [facility] [id number] Univers 15:30:00 15:30:00 MARIAH [id number] ity o f [facility] 2020-11-18 2020-11-18 [facility] [id number] Univers 15:30:00 15:30:00 MARIAH ity o f [facility] 2020-11-16 2020-11-16 Emergency Brendan, [facility] [id number] Univers 13:30:00 15:04:00 [facility] [id number] it y of [place] [id number] [facility] [phone] [address] ([facility]) 2020-11-15 2020-11-15 [facility] 1.2.840.114 [id number] Univers 00:00:00 00:00:00 Mariah Rubio MANAGER STORAGE [id number] [facility] [id number] Kevyn as MATERNAL [phone] [facility] & [address] 2020-11-15 2020-11-15 [facility]phone [facility] 1.2.840.114 [id number] Univers 00:00:00 00:00:00 Mariah C MANAGER STORAGE [id number] [facility] [id number] Kevyn as MATERNAL [phone] [facility] & CHILD [address] [place] [address] 2020-11-05 2020-11-05 Outpatient Cristian VARELA [facility] [id number] Univers 14:00:00 14:00:00 APURVA [id number] ity of [facility] 2020-10-26 2020-10-26 Emergency Dellis, [facility] [id number] Univers 13:31:00 14:01:[address] [facility] [id number] it y of Evgeny River[id number] [place] [phone] [address] ([facility]) 2020-09-26 2020-09-26 Telephone HE [place] 1.2.840.114 [id number] Univers 00:00:00 00:00:00 Maggie MANZO [id number] it y of [facility] [id number] [place]evyn as [id number] [address] 2020-09-24 2020-09-24 Emergency [facility] 1.2.840.114 [id number] Univers 00:29:00 04:04:00 [facility] [id number] it y of [facility] [id number] [facility] [phone] [address] ([facility]) 2020-05-01 2020-05-01 Outpatient R ADUM, [facility] [id number] Univers 10:00:00 10:00:00 ALDA [id number] ity [facility] 2020-05-01 2020-05-01 Outpatient R ADUM, [facility] [id number] Univers 10:00:00 10:00:00 ALDA ity [facility] 2020-04-09 2020-04-09 [facility] 1.2.840.114 [id number] 00:00:00 00:00:00 Management Alda Savage [place] [id number] [place] [id number] Professio [phone] [address] 2020-04-09 2020-04-09 Case Ad, [facility] 1.2.840.114 [id number] Univers 00:00:00 00:00:00 Management Alda L [place] [id number] ity of [id number] [phone] Or dical [address] 2020-04-09 2020-04-09 Telephone Ad, [facility] [id number] Univers 00:00:00 00:00:00 Alda L [place] [id number] ity of [place] [id number] [place] [phone] Or dical [address] 2020-04-09 2020-04-09 Telephone Adum, [facility] [id number] 00:00:00 00:00:00 Alda L [place] [id number] [place] [id number] Professio [id number] [address] 2020-04-03 2020-04-03 Judicial Law Clerk 2, [facility] 1.2.840.114 [id number] Univers 11:10:08 11:25:08 Visit Adum, Alda L [place] [id number] ity of [place] [id number] [phone] Or dical [address] 2020-04-03 2020-04-03 Judicial Law Clerk 2, [facility] 1.2.840.114 [id number] 11:10:08 11:25:08 Visit [place] [id number] [place] [id number] Professio [phone] [address] 2020-04-03 2020-04-03 Initial Adum, [facility] 1.2.840.114 [id number] Univers 09:10:01 11:06:47 Alda L [place] [id number] ity of Visit [place] [id number] [phone] Or dic[address] 2020-04-03 2020-04-03 Initial Adum, [facility] 1.2.840.114 [id number] 09:10:01 11:06:47 Alda L [place] [id number] Visit [place] [id number] Professio [phone] [address] 2020-04-03 2020-04-03 Outpatient ADUM, [facility] [id number] Univers 09:30:00 09:30:00 ALDA [id number] ity of [facility] 2020-04-03 2020-04-03 Outpatient R ADUM, [facility] [id number] Univers 09:30:00 09:30:00 ALDA ity [facility] 2020-01-12 2020-01-12 Outpatient R MARIO [facility] [id number] Univers 14:15:00 14:15:00 MAGGIE [id number] ity of [facility] 2020-01-12 2020-01-12 Outpatient R MARIO [facility] [id number] Univers 14:15:00 14:15:00 MAGGIE itkimmy [facility] 2019-12-11 2019-12-11 Emergency [facility] 1.2.840.114 [id number] Univers 14:40:00 16:04:00 Dennis Mcgowan [place] [id number] ity [facility] [id number] [facility] [phone] [address] 2019-12-11 2019-12-11 Emergency [facility] 1.2.840.114 [id number] 14:40:00 16:04:00 Dennis Ryan [id number] [place] [id number] [place] [address] [id number] [facility] 2019-09-22 2019-09-22 Outpatient R [facility] [id number] Univers 13:30:00 13:30:00 ity of [facility] 2019-09-22 2019-09-22 Outpatient R [facility] [id number] Univers 13:30:00 13:30:00 ity of [facility] 2019-09-06 2019-09-06 Outpatient R [facility] [id number] Univers 10:30:00 10:30:00 ity of [facility] 2019-09-06 2019-09-06 Outpatient R [facility] [id number] Univers 10:30:00 10:30:00 ity of [facility] 2019-07-11 2019-07-11 Outpatient R [facility] [id number] Univers 09:00:00 09:00:00 ity of [facility] 2019-07-07 2019-07-07 Outpatient R [facility] [id number] Univers 08:30:00 08:30:00 ity of [facility] 2019-07-07 2019-07-07 Outpatient R [facility] [id number] Univers 08:30:00 08:30:00 ity [facility] 2019-06-23 2019-06-23 Telephone [facility] 1.2.840.114 [id number] Univers 00:00:00 00:00:00 Maggie Jules MANAGER STORAGE [id number] it y of REGIONAL [id number] Kevyn as MATERNAL [phone] Med ical & CHILD [address] [place] [address] 2019-06-23 2019-06-23 Telephone [facility] 1.2.840.114 [id number] 00:00:00 00:00:00 Maggie Jlues MANAGER STORAGE [id number] REGIONAL [id number] MATERNAL [id number] & CHILD [address] [place] [address] 2019-06-22 2019-06-22 Office [facility] [id number] Univers 10:45:05 11:16:50 Visit Maggie Jules MANAGER STORAGE [id number] it y of REGIONAL [id number] Kevyn as MATERNAL [phone] Med ical & CHILD [address] [place] [address] 2019-06-22 2019-06-22 Office Mario [facility] [id number] 10:45:05 11:16:50 Visit Maggie Jules MANAGER STORAGE [id number] REGIONAL [id number] MATERNAL [id number] & CHILD [address] [place] [address] 2019-06-22 2019-06-22 Outpatient R MARIO [facility] [id number] Univers 10:45:00 10:45:00 [facility] [id number] [facility] 2019-06-22 2019-06-22 Outpatient R MARIO [facility] [id number] Univers 10:45:00 10:45:00 MAGGIE herndon [facility] 2019-06-14 2019-06-14 Nurse Visit, Ang-Rmchp Nurse [facility] 1.2 .840.114 [id number] Univers 08:45:35 09:09:56 Visit Maggie Martin MANAGER STORAGE [id number] [facility] [id number] Kevyn as MATERNAL [phone] [facility] & [address] 2019-06-14 2019-06-14 Outpatient R [facility] [id number] Univers 08:30:00 08:30:00 [id number] [facility] 2019-06-14 2019-06-14 Outpatient R [facility] [id number] Univers 08:30:00 08:30:00 [facility] 2019-06-14 2019-06-14 [facility] [id number] Univers 08:30:00 08:30:00 MAGGIE [facility] 2019-06-14 2019-06-14 [facility] [id number] Univers 00:00:00 00:00:00 (Out) Maggie Jorge A MANAGER STORAGE [id number] [facility] [id number] Kevyn as MATERNAL [phone] [facility] & [address] Results Test Description Test Time Test Comments Results Result Comments Source URINALYSIS 2020-12-03 06:28:40 Test Item Value Reference Range Interpretation Comme nts APPEARANCE (test code = Hazy Clear A 4326579864) COLOR (test code = 9408046043) Yellow Yellow PH (test code = 8790136906) 4.8-8.0 SP GRAVITY (test code = 1.003-1.030 1991102775) GLU U QUAL (test code = Normal Normal 0551088775) BLOOD (test code = 8607443508) Negative Negative KETONES (test code = 7411980910) Negative Negative PROTEIN (test code = 2887-8) Negative Negative UROBILIN (test code = 6522845246) Normal Normal BILIRUBIN (test code = Negative Negative 8380349116) NITRITE (test code = 3519604481) Negative Negative LEUK MT (test code = 75/uL Negative A 3260291261) RBC/HPF (test code = 4244115106) See_Comment [Automated message] The system which ge nerated this result transmit rhina reference range: 0 - 3 HP F. The reference range was not used to interpret th is result as normal/abnormal . WBC/HPF (test code = 8981198917) See_Comment H [Automated message] The system which ge nerated this result transmit rhina reference range: 0 - 5 HP F. The reference range was not used to interpret th is result as normal/abnormal . BACTERIA (test code = 0007403717) Few Negative A SQ EPITH (test code = 2071525938) See_Comment H [Automated message] The system which ge nerated this result transmit rhina reference range: <=2 HPF. The reference range was not u sed to interpret this result as normal/abnormal . Lab Interpretation (test code = Abnormal 89547-0) [facility] [id number] 05:43:51 Test Item Value Reference Interpretation Comments Range TROPONIN I (test 0.005 ng/mL See_Comment [Automated code = 1595589445) message] The system which generated this result transmitted reference range : <=0.034. The reference range was not used to interpret this result as normal/abnormal . PENNY (test code = Reference (Normal) PENNY) Range (defined by the 99th percentile reference limit): <= 0.034 ng/mL Note: Cardiac troponin begins to rise 3-4 hours after the onset of ischemia. Repeat in 4-6 hours if the sample was drawn within 3-4 hours of the onset of the symptom and found normal. Diagnosis of myocardial injury is made with acute changes in cTn concentrations with at least one serial sample above the 99th percentile upper reference limit (URL), taken together with the patient's clinical presentation. Biotin has been reported to cause a negative bias, interpret results relative to patient's use of biotin. Lab Interpretation Normal (test code = 16525-5) [facility] (ID NOW RAPID TESTING)2020-12-03 05:36:46 Test Item Value Reference Range Interpretation Comments SARS-CoV-2 Rapid ID NOW Not Detected Not Detected (test code = 81842-5) PENNY (test code = PENNY) ID NOW COVID-19 Assay is an isothermal nucleic acid amplification test intended for the qualitative detection of nucleic acid from SARS-CoV-2 viral RNA in nasopharyngeal (HOSPICE MASSAGE THERAPIST) specimens. It is used under Emergency Use Authorization (EUA) by FDA. The limit of detection (LOD) of the assay is 125 Genome Equivalents/mL. A positive result is indicative of the presence of SARS-CoV-2 RNA. ?Clinical correlation with patient history and other diagnostic information is necessary to determine patient infection status. A negative (Not Detected) result does not preclude SARS-CoV-2 infection. In patients with clinical symptoms and other tests that are consistent with SARS-CoV-2 infection, negative results should be treated as presumptive negative and a new specimen should be tested with alternative PCR molecular test. Invalid: Please collect a new specimen for repeat patient testing if clinically indicated. Lab Interpretation Normal (test code = 46283-1) [facility] HospitalD-[id number] 05:30:26 Test Item Value Reference Interpretation Comments Range D-DIMER (test code = See_Comment [Autom ated 2623599976) message] The system which generated this result transmitted reference range : <0.50 ?g/mL (FEU). The reference range was not used to interpret this result as normal/abnormal . PENNY (test code = This test may be PENNY) used in conjunction with a clinical pretest probability (PTP) assessment model to exclude venous thromboembolism (VTE) in patients suspected of deep venous thrombosis (DVT) and pulmonary embolism (PE) A D-Dimer value less than 0.50 ?g/ml (FEU) has a negative predicative value of 96 to 100% (95% CI)and 97 to 100% (95% CI) as an aid in the diagnosis of deep vein thrombosis (DVT) and pulmonary embolism when there is low or moderate pretest probability of PE or DVT. D-Dimer values are expressed in initial fibrinogen equivalent units (FEU)" The assay results should be used with other information, including the clinical context, in forming a diagnosis. Lab Interpretation Normal (test code = 81150-6) [facility] WITH [id number] 09:00:13 Test Item Value Reference Range Interpretation Comments WBC (test code = See_Comment H [Automated 4202-2) message] The sy stem which generated this result transmitted reference range : 4.30 - 11.10 10*3/?L. The reference range was not used to interpret this result as normal/abnormal . RBC (test code = See_Comment [Automated 888-8) message] The sy stem which generated this result transmitted reference range : 3.93 - 5.25 10*6/?L. The reference range was not used to interpret this result as normal/abnormal . HGB (test code = 13.1 g/dL 11.6-15.0 718-7) HCT (test code = 40.6 % 35.7-45.2 4544-3) MCV (test code = 84.6 fL 80.6-95.5 787-2) MCH (test code = 27.3 pg 25.9-32.8 785-6) MCHC (test code = 32.3 g/dL 31.6-35.1 786-4) RDW-SD (test code = 36.6 fL 39.0-49.9 L 81189-3) RDW-CV (test code = 11.9 % 12.0-15.5 L 788-0) PLT (test code = See_Comment [Automated 777-3) message] The sy stem which generated this result transmitted reference range : 166 - 358 10*3/ ?L. The reference r kyler was not used to interpret this result as normal/abnormal . MPV (test code = 9.2 fL 9.5-12.9 L 92050-2) NRBC/100 WBC (test See_Comment [Automat ed code = 3339465505) message] The system which generated this result transmitted reference range : 0.0 - 10.0 /100 WBCs. The refer ence range was not u sed to interpret th is result as normal/abnormal . NRBC x10^3 (test code <0.01 See_Comment [Auto mated = 0015931156) message] The s ystem which generated this result transmitted reference range : 10*3/?L. The reference range was not used to interpret this result as normal/abnormal . GRAN MAT (NEUT) % 52.5 % (test code = 770-8) IMM GRAN % (test code 0.30 % = 5105253298) LYMPH % (test code = 39.2 % 736-9) MONO % (test code = 6.6 % 5905-5) EOS % (test code = 1.1 % 713-8) BASO % (test code = 0.3 % 706-2) GRAN MAT x10^3(ANC) 6.00 10*3/uL 1.88-7.09 (test code = 7334780346) IMM GRAN x10^3 (test 0.03 10*3/uL 0.00-0.06 code = 9820428129) LYMPH x10^3 (test code 4.49 10*3/uL 1.32-3.29 H = 731-0) MONO x10^3 (test code 0.75 10*3/uL 0.33-0.92 = 742-7) EOS x10^3 (test code = 0.13 10*3/uL 0.03-0.39 711-2) BASO x10^3 (test code 0.04 10*3/uL 0.01-0.07 = 704-7) Lab Interpretation Abnormal (test code = 68352-9) [facility]. METABOLIC PANEL (83642)2020-09-24 08:07:41 Test Item Value Reference Range Interpretation Comments NA (test code = 138 mmol/L 135-145 2564962491) K (test code = 4.2 mmol/L 3.5-5.0 0551561988) CL (test code = 102 mmol/L 98-108 9842595732) CO2 TOTAL (test code 29 mmol/L 23-31 = 0818571908) AGAP (test code = 2-16 3619235745) BUN (test code = 15 mg/dL 7-23 0185728737) GLUCOSE (test code = 74 mg/dL 70-110 8240362053) CREATININE (test code 0.75 mg/dL 0.50-1.04 = 8651811695) TOTAL BILI (test code 0.2 mg/dL 0.1-1.1 = 0610022630) CALCIUM (test code = 9.6 mg/dL 8.6-10.6 9534710732) T PROTEIN (test code 7.8 g/dL 6.3-8.2 = 1369684533) ALBUMIN (test code = 4.7 g/dL 3.5-5.0 6151705073) ALK PHOS (test code = 68 U/L 34-122 9809750743) ALTv (test code = 18 U/L 5-35 1742-6) AST(SGOT) (test code 29 U/L 13-40 = 7857914467) eGFR (test code = mL/min/1.73m2 6480631423) PENNY (test code = PENNY) Association of Glomerular Filtration Rate (GFR) and Staging of Kidney Disease* + + +- +| GFR (mL/min/1.73 m2) ?| With Kidney Damage ?| ?Without Kidney Damage+ ------+ ----+ ------+| ?>90 ?| ?Stage one ?| ? Normal ?+ -+ + -+| ?60-89 ?| ?Stage two ?| ? Decreased GFR ? + + +- +| ?30-59 ?| ?Stage three ?| ? Stage three ? + + +- +| ?15-29 ?| ?Stage four ? | ? Stage four ?+ -+ + -+| ?<15 (or dialysis) ? ?| ?Stage five ? | ? Stage five ?+ -+ + -+ *Each stage assumes the associated GFR level has been in effect for at least three months. ?Stages 1 to 5, with or without kidney disease, indicate chronic kidney disease. Notes: Determination of stages one and two (with eGFR >59mL/min/1.73 m2) requires estimation of kidney damage for at least three months as defined by structural or functional abnormalities of the kidney, manifested by either:Pathological abnormalities or Markers of kidney damage (including abnormalities in the composition of the blood or urine or abnormalities in imaging tests). [facility] [id number] 08:02:30 Test Item Value Reference Range Interpretation Comments APPEARANCE (test code = Hazy Clear A 7556584827) COLOR (test code = Yellow Yellow 8689738027) PH (test code = 4.8-8.0 2390487443) SP GRAVITY (test code = 1.003-1.030 9167485719) GLU U QUAL (test code = Normal Normal 1562873887) BLOOD (test code = 2+ Negative A 0048520376) KETONES (test code = Negative Negative 1714427458) PROTEIN (test code = Negative Negative 2887-8) UROBILIN (test code = Normal Normal 6153334382) BILIRUBIN (test code = Negative Negative 0353650557) NITRITE (test code = Negative Negative 2247457386) LEUK MT (test code = 25/uL Negative A 4697786286) RBC/HPF (test code = See_Comment H [Autom ated message] 9367307663) The system [employer] generated this result transmitted ref erence range: 0 - 3 HP F. The reference range was not used to int erpret this result as normal/abnormal . WBC/HPF (test code = See_Comment H [Autom ated message] 3230376171) The system [employer] generated this result transmitted ref erence range: 0 - 5 HP F. The reference range was not used to int erpret this result as normal/abnormal . BACTERIA (test code = Few Negative A 3335577491) MUCOUS (test code = Slight Negative LPF A 0475656363) SQ EPITH (test code = See_Comment H [Auto mated message] 4918275779) The system [employer] generated this result transmitted ref erence range: <=2 HPF. The reference range was not used to int erpret this result as normal/abnormal . Lab Interpretation (test Abnormal code = 86094-1) [facility]PO[facility] [id number] 07:36:00 Test Item Value Reference Range Interpretation Comments POCT PREG (test code = 1605) negative On board controls acceptable with present C Line (test code = 3574) POCT PREG LOT # (test code = 3575) [id number] POCT PREG TEST DATE (test 03/18/22 code = 3576) Lab Interpretation (test code = Normal 37661-5) [facility] HospitalGC & CHLAMYDIA AMPLIFIED [id number] 18:18:00 Test Item Value Reference Range Interpretation Comments C. trachomatis Nucleic Negative Negative Acid (test code = 41642-1) N. gonorrhoeae Nucleic Negative Negative Acid (test code = 49025-1) PENNY (test code = PENNY) Reliable results are dependent on adequate specimen collection. ? A positive result obtained from a patient after therapeutic treatment cannot be interpreted as indicating the presence of viable organisms. ?For patients on whom a false positive result may have adverse psychosocial impact, retesting is advised. Indeterminate: Unable to generate a valid test result on this specimen. ?Please submit a new specimen for repeat testing if clinically indicated. Chlamydia trachomatis/Neisseria gonorrhoeae nucleic acid amplification testing (NAAT) has not been validated for medico-legal specimens (sexual abuse in brittany-pubertal and pre-pubertal children, sexual assault, and legal cases). ?Culture for Chlamydia trachomatis and/or Neisseria gonorrhoeae from clinically appropriate sites is the method of choice in these cases. ? Results from this testing should be interpreted in conjunction with other laboratory and clinical data available to the clinician.For females in general, a urine specimen is a second-line option because it is considered less sensitive than a cervical swab for Chlamydia trachomatis and/or Neisseria gonorrhoeae NAAT. Lab Interpretation Normal (test code = 11036-2) [facility] [id number] 15:00:00 Test Item Value Reference Range Interpretation Comments POCT PREG (test code = 1605) Negative On board controls acceptable with C Yes Line (test code = 3574) POCT PREG LOT # (test code = 3575) POCT PREG TEST DATE (test code = 3576) [facility] [id number] 20:36:00 Test Item Value Reference Range Interpretation Comments Streptococcus pyogenes (group A) Negative Negative antigen (test code = 69665-2) Lab Interpretation (test code = Normal 74185-7) [facility] [id number] 20:25:00 Test Item Value Reference Range Interpretation Comments POCT PREG (test code = 1605) Negative On board controls acceptable with Yes C Line (test code = 3574) POCT PREG LOT # (test code = 3575) [id number] POCT PREG TEST DATE (test 11/16/2020 code = 3576) Lab Interpretation (test code = Normal 28862-1) [facility]
--- NOTE | 2021-03-12 23:06 | EDPHYS ---
Physician Documentation [facility] Name: Lorri Isaac Age: 20 yrs Sex: Female : 2000 Arrival Date: 03/12/2021 Time: 21:19 Bed 16 Private MD: ED Physician Justo Lopez HPI: 03/12 22:40 This 20 yrs old Female presents to ER via Ambulatory with complaints of jr8 Congestion, Fever, Sore Throat. 22:40 Onset: The symptoms/episode began/occurred gradually, 3 day(s) ago. Severity of jr8 symptoms: At their worst the symptoms were mild, in the emergency department the symptoms are unchanged. Modifying factors: The symptoms are alleviated by nothing, the symptoms are aggravated by swallowing. Associated signs and symptoms: Pertinent positives: fever. The patient has not experienced similar symptoms in the past. The patient has not recently seen a physician. 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 - Social history:: Smoking status: Patient denies any tobacco usage or history of. Patient/guardian denies using alcohol. ROS: 22:40 Eyes: Negative for injury, pain, redness, and discharge, Neck: Negative for injury, jr8 pain, and swelling, Cardiovascular: Negative for chest pain, palpitations, and edema, Respiratory: Negative for shortness of breath, cough, wheezing, and pleuritic chest pain, Abdomen/GI: Negative for abdominal pain, nausea, vomiting, diarrhea, and constipation, Back: Negative for injury and pain, MS/Extremity: Negative for injury and deformity, Skin: Negative for injury, rash, and discoloration, Neuro: Negative for headache, weakness, numbness, tingling, and seizure. 22:40 Constitutional: Positive for fever. 22:40 ENT: Positive for sore throat. Exam: 22:40 Constitutional: This is a well developed, well nourished patient who is awake, alert, jr8 and in no acute distress. Eyes: Pupils equal round and reactive to light, extra-ocular motions intact. Lids and lashes normal. Conjunctiva and sclera are non-icteric and not injected. Cornea within normal limits. Periorbital areas with no swelling, redness, or edema. Cardiovascular: Regular rate and rhythm with a normal S1 and S2. No gallops, murmurs, or rubs. Normal PMI, no JVD. No pulse deficits. Respiratory: Lungs have equal breath sounds bilaterally, clear to auscultation and percussion. No rales, rhonchi or wheezes noted. No increased work of breathing, no retractions or nasal flaring. Abdomen/GI: Soft, non-tender, with normal bowel sounds. No distension or tympany. No guarding or rebound. No evidence of tenderness throughout. Skin: Warm, dry with normal turgor. Normal color with no rashes, no lesions, and no evidence of cellulitis. MS/ Extremity: Pulses equal, no cyanosis. Neurovascular intact. Full, normal range of motion. Neuro: Awake and alert, GCS 15, oriented to person, place, time, and situation. Motor strength 5/5 in all extremities. Sensory grossly intact. 22:40 ENT: Exam is negative for earache, ear discharge, TM abnormalities, nasal discharge, Mouth: Lips: moist, Oral mucosa: pink and intact, moist, Gums: pink, Tongue: is moist, Posterior pharynx: Airway: patent, Tonsils: are normal in appearance, no enlargement, no erythema, no exudate, no ulcerations, Uvula: midline, non-edematous, no erythema, swelling, is not appreciated, erythema, that is mild. 22:40 Neck: External neck: is normal, C-spine: appears grossly normal, Thyroid: appears normal, Trachea: is midline with no obvious abnormalities, ROM/movement: is normal, is supple, without pain, no range of motions limitations, no meningismus, no nuchal rigidity, negative Brudzinski's sign, negative Kernig's sign, Lymph nodes: lymphadenopathy is appreciated, submandibular nodes. Vital Signs: 21:45 BP 111 / 71; Pulse 82; Resp 18; Temp 98.5(O); Pulse Ox 99% on R/A; Weight 65.77 kg; ld1 Height 5 ft. 3 in. (160.02 cm); Pain 0/10; 21:45 Body Mass Index 25.69 (65.77 kg, 160.02 cm) ld1 MDM: 21:40 Patient medically screened. jr8 23:05 Data reviewed: vital signs, nurses notes, lab test result(s), and as a result, I will jr8 discharge patient. Data interpreted: Pulse oximetry: on room air is 99 %. Interpretation: normal. Counseling: I had a detailed discussion with the patient and/or guardian regarding: the historical points, exam findings, and any diagnostic results supporting the discharge/admit diagnosis, lab results, the need for outpatient follow up, a family practitioner, to return to the emergency department if symptoms worsen or persist or if there are any questions or concerns that arise at home. 03/12 21:55 Order name: Strep; Complete Time: 23:05 jr8 03/12 22:59 Order name: Throat Culture EDMS Administered Medications: No medications were administered Disposition: 03/13 00:24 Co-signature as Attending Physician, Justo Lopez MD I agree with the assessment and kdr plan of care. Disposition Summary: 03/12/21 23:05 Discharge Ordered Location: Home jr8 Problem: new jr8 Symptoms: have improved jr8 Condition: Stable jr8 Diagnosis - Acute pharyngitis, unspecified jr8 Followup: jr8 - With: Private Physician - When: 2 - 3 days - Reason: Recheck today's complaints, Continuance of care, Re-evaluation by your physician Discharge Instructions: - Discharge Summary Sheet jr8 - Pharyngitis jr8 Forms: - Medication Reconciliation Form jr8 - Thank You Letter jr8 - Antibiotic Education jr8 - Prescription Opioid Use jr8 Prescriptions: - Tessalon Perles 100 mg Oral Capsule - take 1 capsule by ORAL route every 8 hours As needed; 15 capsule; Refills: 0, jr8 Product Selection Permitted - Medrol (Dawson) 4 mg Oral Tablets, Dose Pack - take 1 tablet by ORAL route as directed - follow package instructions; 1 jr8 packet; Refills: 0, Product Selection Permitted Signatures: Dispatcher [employer] Justo Samayoa MD MD kdr Roszak, Josh, PA PA jr8 Kelly Mccullough RN RN ld1
--- NOTE | 2021-03-12 23:06 | ER ---
Nurse's Notes [facility] Name: Lorri Isaac Age: 20 yrs Sex: Female : 2000 Arrival Date: 03/12/2021 Time: 21:19 Bed 16 Private MD: Diagnosis: Acute pharyngitis, unspecified Presentation: 03/12 21:45 Chief complaint: Patient states: I have a sore throat, congestion and I have been ld1 running a fever. Coronavirus screen: Client presents with at least one sign or symptom that may indicate coronavirus-19. Standard/surgical mask placed on the client. Ebola Screen: No symptoms or risks identified at this time. Initial Sepsis Screen: Does the patient meet any 2 criteria? No. Patient's initial sepsis screen is negative. Does the patient have a suspected source of infection? No. Patient's initial sepsis screen is negative. Risk Assessment: Do you want to hurt yourself or someone else? Patient reports no desire to harm self or others. Onset of symptoms was March 12, 2021. 21:45 Method Of Arrival: Ambulatory ld1 21:45 Acuity: GLORIA 4 ld1 Triage Assessment: 21:46 General: Appears in no apparent distress. comfortable, Behavior is calm, cooperative, ld1 appropriate for age. Pain: Denies pain. EENT: Throat is reddened Reports nasal congestion sore throat. Neuro: Level of Consciousness is awake, alert, obeys commands, Oriented to person, place, time, situation. Cardiovascular: Capillary refill < 3 seconds Patient's skin is warm and dry. Respiratory: Airway is patent Respiratory effort is even, unlabored, Respiratory pattern is regular, symmetrical. Respiratory: Breath sounds are clear bilaterally. GI: Abdomen is flat, non-distended. : No signs and/or symptoms were reported regarding the genitourinary system. Derm: No signs and/or symptoms reported regarding the dermatologic system. Musculoskeletal: No signs and/or symptoms reported regarding the musculoskeletal system. 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 - Social history:: Smoking status: Patient denies any tobacco usage or history of. Patient/guardian denies using alcohol. Screenin:49 Abuse screen: Denies threats or abuse. Denies injuries from another. Nutritional ld1 screening: No deficits noted. Tuberculosis screening: No symptoms or risk factors identified. Fall Risk None identified. Assessment: 21:49 Reassessment: See triage assessment. Cardiovascular: Capillary refill < 3 seconds ld1 Patient's skin is warm and dry. Respiratory: Airway is patent Respiratory effort is even, unlabored, Respiratory pattern is regular, symmetrical. Vital Signs: 21:45 BP 111 / 71; Pulse 82; Resp 18; Temp 98.5(O); Pulse Ox 99% on R/A; Weight 65.77 kg; ld1 Height 5 ft. 3 in. (160.02 cm); Pain 0/10; 21:45 Body Mass Index 25.69 (65.77 kg, 160.02 cm) ld1 ED Course: 21:19 Patient arrived in ED. mr 21:39 Ant Landrum PA is PHCP. jr8 21:39 Justo Lopez MD is Attending Physician. jr8 21:44 Kelly Mccullough RN is Primary Nurse. ld1 21:46 Triage completed. ld1 21:46 Arm band placed on left wrist. ld1 21:49 Patient has correct armband on for positive identification. Placed in gown. Bed in low ld1 position. Call light in reach. Side rails up X2. bus monitor on. Pulse ox on. NIBP on. Door closed. Noise minimized. Warm blanket given. 21:49 No provider procedures requiring assistance completed. ld1 22:27 Strep Sent. ld1 23:37 Patient did not have IV access during this emergency room visit. ld1 Administered Medications: No medications were administered Outcome: 23:05 Discharge ordered by . roseanna 23:37 Discharged to home ambulatory. ld1 23:37 Condition: stable 23:37 Discharge instructions given to patient, Instructed on discharge instructions, follow up and referral plans. medication usage, Demonstrated understanding of instructions, follow-up care, medications. 23:37 Patient left the ED. ld1 Signatures: Nayeli Andre mr Ant Landrum PA PA jrKelly Nina, RN RN ld1
[2021-03-12 23:42] VITALS: BP 111/71; TEMP 98.5; O2SAT 99
== END 2021-03-12 23:37 | disposition home or self-care (01) ==
LOC: ER 21:15
DX: J02.9 Acute pharyngitis, unspecified (principal)
CPT/HCPCS: 87070; 87081; 99284

== ENCOUNTER 2022-11-14 11:24 | Emergency (ER) | payer OTHER ==
--- OUTSIDE RECORDS SUMMARY | 2022-11-14 11:37 | XMS REPORT | Continuity of Care Document ---
:2000 Author Organization [facility] t Address [address] [facility] [address] [place] [address] Care Team Providers Name Role Phone PCP, PATIENT DOES NOT HAVE A Primary Care Physician UnavailJOAQUIN De Attending Clinician Unavailable JOAQUIN HEARD Attending Clinician Unavailable ALDA FLORES Attending Clinician Unavailable Nurse, [facility] Attending Clinician Unavailable Doctor Unassigned, [place] Attending Clinician Unavailable Alda Flores MD Attending Clinician Amira Campbell RN Attending Clinician Unavailable Mikel Corcoran CRNA Attending Clinician SERENITY LUCIANO Attending Clinician Unavailable NAS LOWE Attending Clinician Unavailable Nas Lowe PA-C Attending Clinician NAYANA SIERRA Attending Clinician Unavailable Wellington Jean DO Attending Clinician Nayana Sierra MD Attending Clinician 2, [facility] Attending Clinician Unavailable NAS MOLINA Attending Clinician Unavailable ELIZABETH FELIPE Attending Clinician Unavailable Nas Kaba Attending Clinician 5, [facility] Room Attending Clinician Unavailable Amira Zamudio MD Attending Clinician AMIRA ZAMUDIO Attending Clinician Unavailable AMIRA ZAMUDIO Attending Clinician Unavailable DEB ASCENCIO Attending Clinician Unavailable 2, [facility] Room Attending Clinician Unavailable Veronique Angel MD, Jack Attending Clinician [phone] JACK LAURA Attending Clinician Unavailable Ranjit Timmons MD Attending Clinician RANJIT TIMMONS Attending Clinician Unavailable Vidal Balderas Attending Clinician [phone] VIDAL BISHOP Attending Clinician Unavailable Lloyd Cobb MD Attending Clinician Mario SLIP COVER SEAMSTRESS, Serenity Jules Attending Clinician SERENITY MARTIN Attending Clinician Unavailable Anders WINP, Tony Mcgowan Attending Clinician Visit, [facility] Nurse Attending Clinician Unavailable ALDA FLORES Admitting Clinician Unavailable Alda Flores MD Admitting Clinician SERENITY LUCIANO Admitting Clinician Unavailable NAYANA SIERRA Admitting Clinician Unavailable Nayana Sierra MD Admitting Clinician RANJIT TIMMONS Admitting Clinician Unavailable Payers Payer Name Policy Type Policy Number Effective Date Expiration Date [facility] [id number] 2018 [facility] MEDICA[facility] 00:00:00 Problems Condition Condition Condition Status Onset Resolution Last Treating Co mments Source Name Details Category Date Date Treatment Clinician Date Vaginal Vaginal Disease Active Univers discharge discharge 1-24 ity of 00:00: [address] External External Disease Active Unive rs thrombosed thrombosed 1-24 [place] [address] [place] [address] BMI BMI Disease Active Univers 26.0-26.9, 26.0-26.9, 1-24 it y of adult adult 00:00: [address] Obesity Obesity Disease Active Univers (BMI (BMI 7-22 ity of 30-39.9) 30-39.9) 00:00: [address] Liveborn Liveborn Disease Active Unive rs infant, of , of 7-22 [place] , [place] born [facility] by by delivery delivery Uterine Uterine Disease Active Univers contractio contractio 7-21 [place] during [place] [facility] High-risk High-risk Disease Active Uni vers 6-29 ity of in third in third 00:00: [place] trimester trimester 00 [facility] 34 weeks 34 weeks Disease Active Unive rs gestation gestation 6-29 ity of of of 00:00: [place] 00 [facility] Anemia of Anemia of Disease Active Uni vers mother in mother in 6-29 [place] , , [place] ante[place] antepartum 00 [facility] 37 weeks 37 weeks Disease Active Unive rs gestation gestation 6-29 ity of of of 00:00: [place] 00 [facility] History of History of Disease Active U nivers GBS (group GBS (group 5-12 it y of B B 00:00: [place] streptococ streptococ 00 Me dical cus) UTI, cus) UTI, Bran ch currently currently Susceptibl Susceptibl Disease Active U nivers e to e to 3-24 ity of Varicella Varicella 00:00[place] (non-immun (non-immun 00 Me dical e), e)[facility] currently currently in second in second trimester trimester Marijuana Marijuana Disease Active Uni vers use use 9-24 ity of 00:00: [facility] History of History of Disease Active U nivers headache headache 9-24 ity of 00:00: [facility] Allergies, Adverse Reactions, Alerts Allergy Allergy Status Severity Reaction(s) Onset Inactive Treating Comm ents Source Name Type Date Date Clinician SVETLANAFIS DRUG Active Swelling Univer s H INGREDI - ity of DERIVED 00:00: [place] Shellfis Propensi Active Swelling Jaw Univ ers h ty to 09-24 swells up ity of Derived adverse 00:00: [place] reaction [facility] Social History Social Habit Start Date Stop Date Quantity Comments Source ASSERTION 2021-03-02 [facility] 00:00:00 [place] [facility] History of Passive smoker University of tobacco use [place] [facility] History [facility] o f Alcohol Std [place] [facility] Drinks Branch History [facility] o f Alcohol Binge [place] [facility] al Branch Exposure to 2022-08-29 2022-09-08 Not sure University SARS-CoV-2 00:00:00 12:47:00 [place] [facility] (event) Branch Alcohol intake 2022-09-08 2022-09-08 Ex-drinker [facility] 00:00:00 00:00:00 (finding) [place] [facility] [place] Tobacco use and 2021-11-06 2021-11-06 Smokeless tobacco Un iversity of exposure 00:00:00 00:00:00 non-user [place] [facility] History [facility] 2020-04-03 2020-04-03 [place] o f Alcohol Comment 00:00:00 00:00:00 [place] Med ical Branch History [facility] 2019-01-10 2019-01-10 1 University o f Alcohol Frequency 00:00:00 00:00:00 [facility] edical Branch Sex Assigned At [birth year] Universit y of 00:00:00 00:00:00 [facility] Smoking Status Start Date Stop Date Source Never smoked tobacco [facility] Medications Ordered Filled Start Stop Current Ordering Indication Dosage Frequency Signature Comments Components Source Medication Medication Date Date Medication? Clinician (SIG) Name Name 2022- No Take by [facility] vit/iron 5-24 05-24 mouth. ity of fum/folic 15:43: 00:00 [place] ac (RIGHT 26 :00 Medical STEP Branch VITAMINS ORAL) 2022- No Take by [facility] vit/iron 5-24 05-24 mouth. ity of fum/folic 15:43: 00:00 [place] ac (RIGHT 26 :00 Medical STEP Branch VITAMINS ORAL) metroNIDAZO 2022- Yes [id number] 500mg Take 1 Univers LE 500 mg 5-23 05-31 tablet by ity of tablet 00:00: 04:59 mouth [place] 00 :00 every 12 Medical (twelve) Branch hours for 7 days. metroNIDAZO 2022- Yes [id number] 500mg Take 1 Univers LE 500 mg 5-23 05-31 tablet by ity of tablet 00:00: 04:59 mouth [place] 00 :00 every 12 Medical (twelve) Branch hours for 7 days. medroxyPROG 2022- No [id number] 150mg Univers ESTERone 09-02 ity of (DEPO-PROVE 16:15: 15:29 [place] RA) 00 :00 Medical injection Branch 150 mg medroxyPROG 2022- No [id number] 150mg 150 mg, Univers ESTERone 09-02 Intramuscu ity of (DEPO-PROVE 16:15: 15:29 lar, ONCE, [place] RA) 00 :00 1 dose, On Medical injection Wed Branch 150 mg 09/02/22 at 1115, Routine medroxyPROG 2022- No [id number] 150mg Univers ESTERone 06-10 ity of (DEPO-PROVE 17:00: 16:04 [place] RA) 00 :00 Medical injection Branch 150 mg medroxyPROG 2022- No [id number] 150mg 150 mg, Univers ESTERone 06-10 Intramuscu ity of (DEPO-PROVE 17:00: 16:04 lar, ONCE, [place] RA) 00 :00 1 dose, On Medical injection Wed Branch 150 mg 06/10/22 at 1100, Routine doxycycline 2022- No [id number] 100mg Take 1 Univers monohydrate 05-14 tablet by it y of 100 mg 00:00: 05:59 mouth in [place] tablet 00 :00 the Medical morning Branch and 1 tablet in the evening. Do all this for 7 days. doxycycline 2022- No [id number] 100mg Take 1 Univers monohydrate 05-14 tablet by it y of 100 mg 00:00: 05:59 mouth in [place] tablet 00 :00 the Medical morning Branch and 1 tablet in the evening. Do all this for 7 days. doxycycline No [id number] 100mg Take 1 Univers monohydrate 05-14 tablet by it y of 100 mg 00:00: 05:59 mouth in [place] tablet 00 :00 the Medical morning Branch and 1 tablet in the evening. Do all this for 7 days. metroNIDAZO 2022- No [id number] 500mg Take 1 Univers LE 500 mg -13 06- tablet by ity of tablet 00:00: 05:59 mouth [place] 00 :00 every 12 Medical (twelve) Branch hours for 7 days. metroNIDAZO 2022- No [id number] 500mg Take 1 Univers LE 500 mg -05-21 tablet by ity of tablet 00:00: 05:59 mouth [place] 00 :00 every 12 Medical (twelve) Branch hours for 7 days. metroNIDAZO 2022- No [id number] 500mg Take 1 Univers LE 500 mg 05-13 tablet by ity of tablet 00:00: 05:59 mouth [place] 00 :00 every 12 Medical (twelve) Branch hours for 7 days. metroNIDAZO 2022- No [id number] 500mg Take 1 Univers LE 500 mg 05-13 tablet by ity of tablet 00:00: 05:59 mouth [place] 00 :00 every 12 Medical (twelve) Branch hours for 7 days. Yes Take by Univer s vit/iron 1-24 mouth. ity of fum/folic 10:27: [facility] (RIGHT [address] [place] [address] STEP Branch VITAMINS ORAL) Yes Take by Univer s vit/iron 1-24 mouth. ity of fum/folic 10:27: [facility] (RIGHT [address] [place] [address] Branch VITAMINS ORAL) Yes Take by Univer s vit/iron 1-24 mouth. ity of fum/folic 10:27: [facility] (RIGHT [address] [place] [address] Branch VITAMINS ORAL) Yes Take by Univer s vit/iron 1-24 mouth. ity of fum/folic 10:27: [facility] (RIGHT [address] [place] [address] STEP Branch VITAMINS ORAL) Yes Take by Univer s vit/iron 1-24 mouth. ity of fum/folic 10:27: [facility] (RIGHT [address] [place] [address] Branch VITAMINS ORAL) Yes Take by Univer s vit/iron 1-24 mouth. ity of fum/folic 10:27: [facility] (RIGHT [address] [facility] STEP Branch VITAMINS ORAL) Yes Take by Univer s vit/iron 1-24 mouth. ity of fum/folic 10:27: [facility] (RIGHT 13 Medical STEP Branch VITAMINS ORAL) Yes Take by Univer s vit/iron 1-24 mouth. ity of fum/folic 10:27: [place] ac (RIGHT 13 Medical STEP Branch VITAMINS ORAL) Yes Take by Univer s vit/iron 1-24 mouth. ity of fum/folic 10:27: [place] ac (RIGHT 13 Medical STEP Branch VITAMINS ORAL) Yes Take by Univer s vit/iron 1-24 mouth. ity of fum/folic 10:27: [place] ac (RIGHT 13 Medical STEP Branch VITAMINS ORAL) Yes Take by Univer s vit/iron 1-24 mouth. ity of fum/folic 10:27: [place] ac (RIGHT 13 Medical STEP Branch VITAMINS ORAL) hydrocortis Yes [id number] Insert Univers one 2.5 % 1-24 into ity of rectal 00:00: rectum 2 [place] cream 00 (two) Medical times Branch daily. hydrocortis Yes [id number] Insert Univers one 2.5 % 1-24 into ity of rectal 00:00: rectum 2 [place] cream 00 (two) Medical times Branch daily. hydrocortis Yes [id number] Insert Univers one 2.5 % 1-24 into ity of rectal 00:00: rectum 2 [place] cream 00 (two) Medical times Branch daily. hydrocortis Yes [id number] Insert Univers one 2.5 % 1-24 into ity of rectal 00:00: rectum 2 [place] cream 00 (two) Medical times Branch daily. hydrocortis Yes [id number] Insert Univers one 2.5 % 1-24 into ity of rectal 00:00: rectum 2 [place] cream 00 (two) Medical times Branch daily. hydrocortis 0 Yes [id number] Insert Univers one 2.5 % 1-24 into ity of rectal 00:00: rectum 2 [place] cream 00 (two) Medical times Branch daily. hydrocortis 0 Yes [id number] Insert Univers one 2.5 % 1-24 into ity of rectal 00:00: rectum 2 [place] cream 00 (two) Medical times Branch daily. hydrocortis 0 Yes [id number] Insert Univers one 2.5 % 1-24 into ity of rectal 00:00: rectum 2 [place] cream 00 (two) Medical times Branch daily. hydrocortis 2022-0 Yes [id number] Insert Univers one 2.5 % 1-24 into ity of rectal 00:00: rectum 2 [place] cream 00 (two) Medical times Branch daily. hydrocortis 2022-0 Yes [id number] Insert Univers one 2.5 % 1-24 into ity of rectal 00:00: rectum 2 [place] cream 00 (two) Medical times Branch daily. hydrocortis 2022-0 Yes [id number] Insert Univers one 2.5 % 1-24 into ity of rectal 00:00: rectum 2 [place] cream 00 (two) Medical times Branch daily. hydrocortis 2022-0 3- No [id number] Insert Univers one 2.5 % 1-24 05-24 into ity of rectal 00:00: 00:00 rectum 2 [place] cream 00 :00 (two) Medical times Branch daily. hydrocortis 2022-0 2022- No [id number] Insert Univers one 2.5 % 1-24 05-24 into ity of rectal 00:00: 00:00 rectum 2 [place] cream 00 :00 (two) Medical times Branch daily. medroxyPROG 2021-04- No [id number] 150mg Univers ESTERone 05-18 11-30 ity of (DEPO-PROVE 18:15: 17:01 [facility]) syringe 00 :00 Medical 150 mg Branch medroxyPROG 2021-04- No [id number] 150mg 150 mg, Univers ESTERone 05-18 11-30 Intramuscu ity of (DEPO-PROVE 18:15: 17:01 lar, ONCE, [facility]) syringe 00 :00 1 dose, On Me dical 150 mg Wed Branch 03/18/22 at 1215, Routine medroxyPROG 2021- No [id number] 150mg Univers ESTERone 12-17 ity of (DEPO-PROVE 19:15: 18:42 [facility]) 00 :00 Medical injection Branch 150 mg medroxyPROG 2021- No [id number] 150mg 150 mg, Univers ESTERone 12-17 Intramuscu ity of (DEPO-PROVE 19:15: 18:42 lar, ONCE, [facility]) 00 :00 1 dose, On Medical injection Wed Branch 150 mg 8/31/22 at 1415, Routine Yes Take by Univer s vit/iron 7-24 mouth. ity of fum/folic 09:59: [facility] (RIGHT Medical STEP Branch VITAMINS ORAL) Yes Take by Univer s vit/iron 7-24 mouth. ity of fum/folic 09:59: [facility] ([place] [address] Medical STEP Branch VITAMINS ORAL) Yes Take by Univer s vit/iron 7-24 mouth. ity of fum/folic 09:59: [facility] (RIGHT Medical STEP Branch VITAMINS ORAL) Yes Take by Univer s vit/iron 7-24 mouth. ity of fum/folic 09:59: [facility] ([place] [address] Medical STEP Branch VITAMINS ORAL) Yes Take by Univer s vit/iron 7-24 mouth. ity of fum/folic 09:59: [facility] ([place] [address] Medical STEP Branch VITAMINS ORAL) Yes Take by Univer s vit/iron 7-24 mouth. ity of fum/folic 09:59: [facility] (RIGHT Medical STEP Branch VITAMINS ORAL) Yes Take by Univer s vit/iron 7-24 mouth. ity of fum/folic 09:59: [facility] ([place] [address] Medical STEP Branch VITAMINS ORAL) Yes Take by Univer s vit/iron 7-24 mouth. ity of fum/folic 09:59: [facility] ([place] [address] Medical STEP Branch VITAMINS ORAL) ibuprofen Yes 800mg 800 mg, Univ ers (IBU) 11-08 Oral, Q8H, ity of tablet 800 19:00: First dose [place] mg [address] [facility] Medical 11/08/21 at Branch 1400, Until Discontinu ed, Routine ibuprofen 2021- No 800mg 800 mg, Uni vers (IBU) 11-08 Oral, Q8H, ity of tablet 800 19:00: 17:04 First dose [place] mg 00 :[address] [facility] Medical 11/08/21 at Branch 1400, Until Discontinu ed, Routine ceFAZolin 2021- No 1g 1 g, IV Univ ers (ANCEF) 1 g 11-08 Piggyback, i ty of in NaCl 01:30: 10:27 Q8H ABX, 2 [place] 0.9% (NS) 00 :00 doses, Medical 50 mL First dose Branch MINI-BAG (after last modificati on) on 11/07/21 at 2030, Last dose on 11/08/21 at 0430, Administer over 30 Minutes, 50 mL
Reas on for Anti-Infec tive: Empiric Non-Surgic al Prophylaxi s
Durat ion of therapy: 72 hours gabapentin 2021-0 Yes [id number] 300mg Take 1 Univers 300 mg 7-23 capsule by ity of capsule 00:00: mouth in [place] 00 the Medical morning Branch and 1 capsule at noon and 1 capsule in the evening. ibuprofen 2021-0 Yes [id number] 800mg Take 1 Univers 800 mg 7-23 tablet by ity of tablet 00:00: mouth [place] 00 every 8 Medical (eight) Branch hours. 2021-0 Yes [id number] 1{tbl} Take 1 Univers vitamin 7-23 tablet by ity of w/FA tablet 00:00: mouth in [place] the Medical morning. Branch gabapentin 2021-0 Yes [id number] 300mg Take 1 Univers 300 mg 7-23 capsule by ity of capsule 00:00: mouth in [place] the Medical morning Branch and 1 capsule at noon and 1 capsule in the evening. ibuprofen 2021-0 Yes [id number] 800mg Take 1 Univers 800 mg 7-23 tablet by ity of tablet 00:00: mouth [place] 00 every 8 Medical (eight) Branch hours. 2021-0 Yes [id number] 1{tbl} Take 1 Univers vitamin 7-23 tablet by ity of w/FA tablet 00:00: mouth [place] the Medical morning. Branch gabapentin 2021-0 Yes [id number] 300mg Take 1 Univers 300 mg 7-23 capsule by ity of capsule 00:00: mouth in [place] 00 the Medical morning Branch and 1 capsule at noon and 1 capsule in the evening. ibuprofen 2021-0 Yes [id number] 800mg Take 1 Univers 800 mg 7-23 tablet by ity of tablet 00:00: mouth [place] 00 every 8 Medical (eight) Branch hours. 2021-0 Yes [id number] 1{tbl} Take 1 Univers vitamin 7-23 tablet by ity of w/FA tablet 00:00: mouth [place] the Medical morning. Branch gabapentin 2021-0 Yes [id number] 300mg Take 1 Univers 300 mg 7-23 capsule by ity of capsule 00:00: mouth in [place] 00 the Medical morning Branch and 1 capsule at noon and 1 capsule in the evening. ibuprofen 2021-0 Yes [id number] 800mg Take 1 Univers 800 mg 7-23 tablet by ity of tablet 00:00: mouth [place] 00 every 8 Medical (eight) Branch hours. 2-0 Yes [id number] 1{tbl} Take 1 Univers vitamin 7-23 tablet by ity of w/FA tablet 00:00: mouth [place] the Medical morning. Branch gabapentin 2021-0 Yes [id number] 300mg Take 1 Univers 300 mg 7-23 capsule by ity of capsule 00:00: mouth in [place] the Medical morning Branch and 1 capsule at noon and 1 capsule in the evening. ibuprofen 2021-0 Yes [id number] 800mg Take 1 Univers 800 mg 7-23 tablet by ity of tablet 00:00: mouth [place] 00 every 8 Medical (eight) Branch hours. 2021-0 Yes [id number] 1{tbl} Take 1 Univers vitamin 7-23 tablet by ity of w/FA tablet 00:00: [place] the Medical morning. Branch gabapentin 2021-0 Yes [id number] 300mg Take 1 Univers 300 mg 7-23 capsule by ity of capsule 00:00: mouth in [place] the Medical morning Branch and 1 capsule at noon and 1 capsule in the evening. ibuprofen 2022-0 Yes [id number] 800mg Take 1 Univers 800 mg 7-23 tablet by ity of tablet 00:00: mouth [place] 00 every 8 Medical (eight) Branch hours. gabapentin 2022-0 Yes [id number] 300mg Take 1 Univers 300 mg 7-23 capsule by ity of capsule 00:00: mouth in [place] 00 the Medical morning Branch and 1 capsule at noon and 1 capsule in the evening. ibuprofen 2022-0 Yes [id number] 800mg Take 1 Univers 800 mg 7-23 tablet by ity of tablet 00:00: mouth [place] 00 every 8 Medical (eight) Branch hours. gabapentin 2022-0 Yes [id number] 300mg Take 1 Univers 300 mg 7-23 capsule by ity of capsule 00:00: mouth in [place] 00 the Medical morning Branch and 1 capsule at noon and 1 capsule in the evening. ibuprofen 2022-0 Yes [id number] 800mg Take 1 Univers 800 mg 7-23 tablet by ity of tablet 00:00: mouth [place] 00 every 8 Medical (eight) Branch hours. gabapentin 2022-0 Yes [id number] 300mg Take 1 Univers 300 mg 7-23 capsule by ity of capsule 00:00: mouth in [place] 00 the Medical morning Branch and 1 capsule at noon and 1 capsule in the evening. ibuprofen 2022-0 Yes [id number] 800mg Take 1 Univers 800 mg 7-23 tablet by ity of tablet 00:00: mouth [place] 00 every 8 Medical (eight) Branch hours. gabapentin 2022-0 Yes [id number] 300mg Take 1 Univers 300 mg 7-23 capsule by ity of capsule 00:00: mouth in [place] 00 the Medical morning Branch and 1 capsule at noon and 1 capsule in the evening. ibuprofen 2022-0 Yes [id number] 800mg Take 1 Univers 800 mg 7-23 tablet by ity of tablet 00:00: mouth [place] 00 every 8 Medical (eight) Branch hours. gabapentin 2022-0 Yes [id number] 300mg Take 1 Univers 300 mg 7-23 capsule by ity of capsule 00:00: mouth in [place] 00 the Medical morning Branch and 1 capsule at noon and 1 capsule in the evening. ibuprofen 2022-0 Yes [id number] 800mg Take 1 Univers 800 mg 7-23 tablet by ity of tablet 00:00: mouth [place] 00 every 8 Medical (eight) Branch hours. gabapentin 2022-0 Yes [id number] 300mg Take 1 Univers 300 mg 7-23 capsule by ity of capsule 00:00: mouth in [place] 00 the Medical morning Branch and 1 capsule at noon and 1 capsule in the evening. ibuprofen 2022-0 Yes [id number] 800mg Take 1 Univers 800 mg 7-23 tablet by ity of tablet 00:00: mouth [place] 00 every 8 Medical (eight) Branch hours. gabapentin 2022-0 Yes [id number] 300mg Take 1 Univers 300 mg 7-23 capsule by ity of capsule 00:00: mouth in [place] 00 the Medical morning Branch and 1 capsule at noon and 1 capsule in the evening. ibuprofen 2022-0 Yes [id number] 800mg Take 1 Univers 800 mg 7-23 tablet by ity of tablet 00:00: mouth [place] 00 every 8 Medical (eight) Branch hours. gabapentin 2022-0 Yes [id number] 300mg Take 1 Univers 300 mg 7-23 capsule by ity of capsule 00:00: mouth in [place] 00 the Medical morning Branch and 1 capsule at noon and 1 capsule in the evening. ibuprofen 2022-0 Yes [id number] 800mg Take 1 Univers 800 mg 7-23 tablet by ity of tablet 00:00: mouth [place] 00 every 8 Medical (eight) Branch hours. gabapentin 2022-0 Yes [id number] 300mg Take 1 Univers 300 mg 7-23 capsule by ity of capsule 00:00: mouth in [place] 00 the Medical morning Branch and 1 capsule at noon and 1 capsule in the evening. ibuprofen 2022-0 Yes [id number] 800mg Take 1 Univers 800 mg 7-23 tablet by ity of tablet 00:00: mouth [place] [address] every 8 Medical (eight) Branch hours. gabapentin 2022-0 Yes [id number] 300mg Take 1 Univers 300 mg 7-23 capsule by ity of capsule 00:00: mouth in [place] 00 the Medical morning Branch and 1 capsule at noon and 1 capsule in the evening. ibuprofen 2022-0 Yes [id number] 800mg Take 1 Univers 800 mg 7-23 tablet by ity of tablet 00:00: mouth [place] 00 every 8 Medical (eight) Branch hours. gabapentin 2022-0 Yes [id number] 300mg Take 1 Univers 300 mg 7-23 capsule by ity of capsule 00:00: mouth in [place] 00 the Medical morning Branch and 1 capsule at noon and 1 capsule in the evening. ibuprofen 2022-0 Yes [id number] 800mg Take 1 Univers 800 mg 7-23 tablet by ity of tablet 00:00: mouth [place] [address] every 8 Medical (eight) Branch hours. gabapentin 2022-0 Yes [id number] 300mg Take 1 Univers 300 mg 7-23 capsule by ity of capsule 00:00: mouth in [place] 00 the Medical morning Branch and 1 capsule at noon and 1 capsule in the evening. ibuprofen 2022-0 Yes [id number] 800mg Take 1 Univers 800 mg 7-23 tablet by ity of tablet 00:00: mouth [place] 00 every 8 Medical (eight) Branch hours. gabapentin 2021-0 Yes [id number] 300mg Take 1 Univers 300 mg 7-23 capsule by ity of capsule 00:00: mouth in [place] 00 the Medical morning Branch and 1 capsule at noon and 1 capsule in the evening. ibuprofen 2021-0 Yes [id number] 800mg Take 1 Univers 800 mg 7-23 tablet by ity of tablet 00:00: mouth [place] 00 every 8 Medical (eight) Branch hours. gabapentin 2021-0 Yes [id number] 300mg Take 1 Univers 300 mg 7-23 capsule by ity of capsule 00:00: mouth in [place] 00 the Medical morning Branch and 1 capsule at noon and 1 capsule in the evening. gabapentin 2021-0 Yes [id number] 300mg Take 1 Univers 300 mg 7-23 capsule by ity of capsule 00:00: mouth in [place] 00 the Medical morning Branch and 1 capsule at noon and 1 capsule in the evening. ibuprofen 2022- No [id number] 800mg Take 1 Univers 800 mg 7-23 05-24 tablet by ity of tablet 00:00: 00:00 mouth [place] 00 :00 every 8 Medical (eight) Branch hours. ibuprofen 2021-2022- No [id number] 800mg Take 1 Univers 800 mg 7-23 05-24 tablet by ity of tablet 00:00: 00:00 mouth [place] 00 :00 every 8 Medical (eight) Branch hours. 2021-2021- No [id number] 1{tbl} Take 1 Univers vitamin 7-23 08-31 tablet by ity of w/FA tablet 00:00: 00:00 mouth in [place] 00 :00 the Medical morning. Branch HYDROcodone 2021- No [id number] 1{tbl} Take 1 U nivers -acetaminop 7-23 07-31 tablet by it y of hen 5-325 00:00: 04:59 mouth [place] mg tablet 00 :00 every 6 Medical (six) Branch hours as needed for Pain (scale 7-10) or Pain (scale 4-6) for up to 7 days. Indication s: acute pain HYDROcodone 2021-2021- No [id number] 1{tbl} Take 1 U nivers -acetaminop 7-23 07-31 tablet by it y of hen 5-325 00:00: 04:59 mouth [place] mg tablet 00 :00 every 6 Medical (six) Branch hours as needed for Pain (scale 7-10) or Pain (scale 4-6) for up to 7 days. Indication s: acute pain HYDROcodone 2021- No [id number] 1{tbl} Take 1 U nivers -acetaminop 11-08 tablet by it y of hen 5-325 00:00: 04:59 mouth [place] mg tablet 00 :00 every 6 Medical (six) Branch hours as needed for Pain (scale 7-10) or Pain (scale 4-6) for up to 7 days. Indication s: acute pain HYDROcodone 2021- No 4647 1{tbl} Take 1 U nivers -acetaminop 11-08 tablet by it y of hen 5-325 00:00: 04:59 mouth [place] mg tablet 00 :00 every 6 Medical (six) Branch hours as needed for Pain (scale 7-10) or Pain (scale 4-6) for up to 7 days. Indication s: acute pain acetaminoph 2021- No 1000mg 1,000 mg, Univers en ADULT 11-08 IV ity of (OFIRMEV) 00:00: 23:55 [place]fusion, [place] injection 00 :00 at 400 Medical 1,000 mg mL/hr Branch Administer over 15 Minutes, ONCE TODAY, 1 dose, On Wed11/07/21 at 1900, Routine
Indicatio n: Perioperat henrry Patient lactated 2021- No 1000mL at 125 Univ ers ringers IV 11-07 mL/hr, ity of infusion 19:30: 20:57 1,000 mL, [place] 1,000 mL 00 :00 IV Medical Infusion, Branch ONCE, 1 dose, On Wed11/07/21 at 1430, Routine gabapentin Yes 300mg 300 mg, Uni vers (NEURONTIN) 11-07 Oral, TID, it y of capsule 300 19:00: First dose [place] mg 00 on Wed Medical 11/07/21 at Branch 1400, Until Discontinu ed, Routine gabapentin 2021- No 300mg 300 mg, [facility] (NEURONTIN) 11-07 Oral, TID, i ty of capsule 300 19:00: 17:04 First dose [place] mg 00 :13 on Fri Medical 11/07/21 at Branch 1400, Until Discontinu ed, Routine ketorolac 2021- No 30mg 30 mg, [facility] [place] [facility] 11-07 Slow IV ity of injection 19:00: 11:21 Push, Q6H, [place] 30 mg 00 :00 4 doses, Medical First dose Branch on 11/07/21 at 1400, Last dose on 11/08/21 at 0600, Routine rho(D) Yes 300ug 300 mcg, [facility] s immune 11-07 Intramuscu ity of globulin 18:33: lar, ONCE, [place] (RHOGAM) 13 For 1 Medical syringe 300 dose, Branch mcg Conditiona l, Routine rho(D) 2021- No 300ug 300 mcg, [facility] [place] [facility] immune 11-07 Intramuscu ity of globulin 18:33: 17:04 [place], ONCE, [place] (RHOGAM) 13 :13 For 1 Medical syringe 300 dose, Branch mcg Conditiona l, Routine oxyCODONE Yes 10mg 10 mg, [facility] s immediate 11-07 Oral, ity of release 18:29: Q6HPRN, [place] tablet 10 11 Starting Medica l mg on Fri Branch 11/07/21 at 1329, Until Discontinu ed, Routine, Pain (scale 7-10)<b r>anthropology faculty member approving Restricted medication : ALDA FLORES oxyCODONE No 10mg 10 mg, [facility] [place] [facility] immediate 11-07 Oral, ity of release 18:29: 17:04 Q6HPRN, [place] tablet 10 11 :13 Starting Medica l mg on Fri Branch 11/07/21 at 1329, Until 11/09/21 at 1204, Routine, Pain (scale 7-10)
F aculty member approving Restricted medication : ALDA FLORES oxyCODONE Yes 5mg 5 mg, Univers immediate 11-07 Oral, ity of release 18:28: Q6HPRN, [place] tablet 5 mg 47 Starting Medi zofia on Wed Branch 11/07/21 at 1328, Until Discontinu ed, Routine, Pain (scale 4-6)
anthropology faculty member approving Restricted medication : ALDA FLORES oxyCODONE 0 202- No 5mg 5 mg, Univer s immediate 11-07 07-24 Oral, ity of release 18:28: 17:04 Q6HPRJorge A, [place] tablet 5 mg 47 :13 Starting Medi zofia on Wed Branch 11/07/21 at 1328, Until 11/09/21 at 1204, Routine, Pain (scale 4-6)
Fa culty member approving Restricted medication : ALDA FLORES diphenhydrA 0 Yes 25mg 25 mg, Univ ers MINE 11-07 Slow IV ity of (BENADRYL) 18:26: Push, [place] injection 30 Q6HPRN, Medical 25 mg Starting Branch on Wed11/07/21 at 1326, Until Discontinu ed, Routine, Itching diphenhydrA 0 Yes 25mg 25 mg, Univ ers MINE 11-07 Oral, ity of (BENADRYL) 18:26: Q6HPRN, [place] tablet 25 30 Starting Medica l mg on Wed Branch 11/07/21 at 1326, Until Discontinu ed, Routine, Sleep, Itching ondansetron 2021-0 Yes 4mg 4 mg, Slow Univers (ZOFRAN 11-07 IV Push, ity of (PF)) 18:26: Q8HPRN, [place] injection 4 30 Starting Medi zofia mg on Wed Branch 11/07/21 at 1326, Until Discontinu ed, Routine, Nausea and Vomiting (N/V) bisacodyL 0 Yes 10mg 10 mg, Univer s (DULCOLAX) 11-07 Rectal, ity of suppository 18:26: QDAILYPRN, [place] 10 mg 30 Starting Medical on Wed Branch 11/07/21 at 1326, Until Discontinu ed, Routine, Constipati on simethicone 2021-0 Yes 160mg 160 mg, [facility] (GAS RELIEF 11-07 Oral, ity of (SIMETHICON 18:26: PC+HSPRN, [place] E)) 30 Starting Medical chewable on Fri Branch tablet 160 11/07/21 at mg 1326, Until Discontinu ed, Routine, Gas diphenhydrA 2021- No 25mg 25 mg, Uni vers MINE 11-07 Slow IV ity of (BENADRYL) 18:26: 17:04 Push, [place] injection 30 :13 Q6HPRN, Medical 25 mg Starting Branch on 11/07/21 at 1326, Until 11/09/21 at 1204, Routine, Itching diphenhydrA 2021- No 25mg 25 mg, Uni vers MINE 11-07 Oral, ity of (BENADRYL) 18:26: 17:04 Q6HPRN, [place] tablet 25 30 :13 Starting Medica l mg on Fri Branch 11/07/21 at 1326, Until 11/09/21 at 1204, Routine, Sleep, Itching ondansetron 2021- No 4mg 4 mg, Slow Univers (ZOFRAN 11-07 IV Push, ity of (PF)) 18:26: 17:04 Q8HPRN, [place] injection 4 30 :13 Starting Medi zofia mg on Fri Branch 11/07/21 at 1326, Until 11/09/21 at 1204, Routine, Nausea and Vomiting (N/V) bisacodyL 2021- No 10mg 10 mg, Unive rs (DULCOLAX) 11-07 Rectal, ity o f suppository 18:26: 17:04 QDAILYPRN, [place] 10 mg 30 :13 Starting Medical on Fri Branch 11/07/21 at 1326, Until 11/09/21 at 1204, Routine, Constipati on simethicone 2021- No 160mg 160 mg, U nivers (GAS RELIEF 11-07 Oral, ity of (SIMETHICON 18:26: 17:04 PC+HSPRN, [place] E)) 30 :13 Starting Medical chewable on Fri Branch tablet 160 11/07/21 at mg 1326, Until 11/09/21 at 1204, Routine, Gas docusate Yes 200mg 200 mg, Unive rs (COLACE) 11-07 Oral, ity of capsule 200 18:26: QDAILYPRN, [place] mg 29 Starting Medical on Fri Branch 11/07/21 at 1326, Until Discontinu ed, Routine, Constipati on magnesium Yes 30mL 30 mL, Univer s hydroxide 11-07 Oral, ity of (MILK OF 18:26: QDAILYPRN, [place] MAGNESIA) 29 Starting Medica l 400 mg/5 mL on Fri Branch suspension 11/07/21 at 30 mL 1326, Until Discontinu ed, Routine, Constipati on docusate 2021- No 200mg 200 mg, Univ ers (COLACE) 11-07 Oral, ity of capsule 200 18:26: 17:04 QDAILYPRN, [place] mg 29 :13 Starting Medical on Fri Branch 11/07/21 at 1326, Until 11/09/21 at 1204, Routine, Constipati on magnesium 2021- No 30mL 30 mL, Unive rs hydroxide 11-07 Oral, ity of (MILK OF 18:26: 17:04 QDAILYPRN, [place] MAGNESIA) 29 :13 Starting Medica l 400 mg/5 mL on Fri Branch suspension 11/07/21 at 30 mL 1326, Until 11/09/21 at 1204, Routine, Constipati on LR 1000 mL 2021- No IV Univer s + oxytocin 11-07 Infusion, ity of 40 units 40 17:40: 18:21 CONTINUOUS [place] unit/ 1,000 00 :25 PRN, Medical mL IV Starting Branch Solution on Wed11/07/21 at 1240, Until 11/07/21 at 1321, Routine, Intra-op terbutaline 2021- No .25mg 0.25 mg, Univers (BRETHINE) 11-07 Subcutaneo it y of injection 17:00: 17:05 us, ONCE, [place] 0.25 mg 00 :00 1 dose, On Medica l Fri Branch 11/07/21 at 1200, Routine oxytocin 2021- No 6mU/min at 6-40 [facility] (PITOCIN) 11-07 mL/hr, IV ity of 30 units in 14:42: 18:33 Infusion, [place] NS 500 mL 31 :11 TITRATE, Medica l IV infusion Starting Bran ch on Wed11/07/21 at 0942, Until Wed11/07/21 at 1333, GURDEEP penicillin 2021- No 310 3 Million U nivers g pot in 11-07 Units, IV ity o f dextrose 3 03:00: 17:15 Piggyback, [place] million 00 :46 Q4H ABX, 6 Medica l unit/50 mL doses, Branch RTU iv First dose piggyback 3 on [place] Million 11/06/21 at Units 2200, Last dose on Wed11/07/21 at 1800, Administer over 60 Minutes, 50 mL
Reas on for Anti-Infec tive: Documented Infection< br>Documen rhina Infection Site: Urine
D uration of Therapy: Other (see Comments) penicillin 2021- No 510 5 Million U nivers g potassium 11-06 Units, IV it y of 5 Million 23:45: 00:47 Piggyback, [place] Units in 00 :00 ONCE, 1 Medical NaCl 0.9% dose, On Branch (NS) 100 mL [place] MINI-BAG 11/06/21 at 1845, Administer over 60 Minutes, 100 mL
Reas on for Anti-Infec tive: Documented Infection< br>Documen rhina Infection Site: Urine
D uration of Therapy: Other (see Comments) D5W-LR IV 2021- No 1000mL at 125 Uni vers infusion 11-06 mL/hr, IV ity o f 1,000 mL 23:45: 18:33 Infusion, [place] 00 :11 CONTINUOUS Medical , Starting Branch on [place] 11/06/21 at 1845, Until Wed11/07/21 at 1333, Routine ondansetron 2021- No 4mg 4 mg, Slow Univers (ZOFRAN 11-06 IV Push, ity of (PF)) 22:49: 18:33 Q6HPRN, [place] injection 4 04 :11 Nausea and Me dical mg Vomiting Branch (N/V), Starting on [place] 7/21/22 at 1749
Do ses of ondansetro n 16 mg and above need to be administer ed via IV piggyback. For Dose >=24mg ECG monitoring is advisable.
nalbuphine No 10mg 10 mg, [facility] [place] [facility] ers (NUBAIN) 11-06 Intravenou ity of injection 22:48: 18:33 s, Q4HPRN, [place] 10 mg 06 :11 Starting Medical on [place] Branch 11/06/21 at 1748, Until 11/07/21 at 1333, Routine, pain NaCl 0.9% No 1000mL at 125 Uni vers (NS) IV 11-06 mL/hr, IV ity of infusion 21:15: 18:33 Infusion, [place] 1,000 mL 00 :11 CONTINUOUS Medic al , Starting Branch on [place]ette 11/06/21 at 1615, Until 11/07/21 at 1333, Routine NaCl 0.9% 2021- No 500mL at 999 [facility] [place] [facility] ers (NS) bolus 11-06 mL/hr, 500 it y of infusion 21:15: 20:52 mL, IV [place] 500 mL 00 :00 Infusion, Medical ONCE, 1 Branch dose, On [place] 11/06/21 at 1615, STAT acetaminoph No 650mg 650 mg, U nivers en 11-06 Oral, ity of (TYLENOL) 18:45: 17:42 ONCE, 1 [place] tablet 650 00 :00 dose, On Medic al mg [place] Branch 11/06/21 at 1345, Routine Yes Take by [facility] vit/iron 7-20 mouth. ity of fum/folic 03:07: [facility] (RIGHT 28 Medical STEP Branch VITAMINS ORAL) Yes Take by [facility] vit/iron 7-20 mouth. ity of fum/folic 03:07: [facility] (RIGHT 28 Medical STEP Branch VITAMINS ORAL) Yes Take by [facility] vit/iron 7-10 mouth. ity of fum/folic 18:22: [facility] (RIGHT 56 Medical STEP Branch VITAMINS ORAL) Yes Take by Univer s vit/iron 7-10 mouth. ity of fum/folic 18:22: [facility] (RIGHT 56 Medical STEP Branch VITAMINS ORAL) Yes Take by Univer s vit/iron 7-10 mouth. ity of fum/folic 18:22: [facility] (RIGHT 56 Medical STEP Branch VITAMINS ORAL) Yes Take by Univer s vit/iron 7-10 mouth. ity of fum/folic 18:22: [facility] (RIGHT 56 Medical STEP Branch VITAMINS ORAL) ferrous Yes [id number] 1{capsu Take 1 Univers fumarate-b1 6-08 le} capsule by it y of 2-vitamic 00:00: mouth [place] C-folic 00 daily with Medica l acid breakfast. Branch (FEROCON) 110-0.5 mg capsule ferrous Yes 1{capsu Take 1 Univers fumarate-b1 6-08 le} capsule by it y of 2-vitamic 00:00: mouth [place] C-folic 00 daily with Medica l acid breakfast. Branch (FEROCON) 110-0.5 mg capsule ferrous Yes [id number] 1{capsu Take 1 Univers fumarate-b1 6-08 le} capsule by it y of 2-vitamic 00:00: mouth [place] C-folic 00 daily with Medica l acid breakfast. Branch (FEROCON) 110-0.5 mg capsule ferrous 2021-0 Yes 1{capsu Take 1 Univers fumarate-b1 6-08 le} capsule by it y of 2-vitamic 00:00: mouth [place] C-folic 00 daily with Medica l acid breakfast. Branch (FEROCON) 110-0.5 mg capsule ferrous 2021-0 Yes [id number] 1{capsu Take 1 Univers fumarate-b1 6-08 le} capsule by it y of 2-vitamic 00:00: mouth [place] C-folic 00 daily with Medica l acid breakfast. Branch (FEROCON) 110-0.5 mg capsule ferrous 2021-0 Yes [id number] 1{capsu Take 1 Univers fumarate-b1 6-08 le} capsule by it y of 2-vitamic 00:00: mouth [place] C-folic 00 daily with Medica l acid breakfast. Branch (FEROCON) 110-0.5 mg capsule ferrous 2021-0 Yes [id number] 1{capsu Take 1 Univers fumarate-b1 6-08 le} capsule by it y of 2-vitamic 00:00: mouth [place] C-folic 00 daily with Medica l acid breakfast. Branch (FEROCON) 110-0.5 mg capsule ferrous 2021-0 Yes 1{capsu Take 1 Univers fumarate-b1 6-08 le} capsule by it y of 2-vitamic 00:00: mouth [place] C-folic 00 daily with Medica l acid breakfast. Branch (FEROCON) 110-0.5 mg capsule ferrous 2021-0 Yes [id number] 1{capsu Take 1 Univers fumarate-b1 6-08 le} capsule by it y of 2-vitamic 00:00: mouth [place] C-folic 00 daily with Medica l acid breakfast. Branch (FEROCON) 110-0.5 mg capsule ferrous 2021-0 Yes 1{capsu Take 1 Univers fumarate-b1 6-08 le} capsule by it y of 2-vitamic 00:00: mouth [place] C-folic 00 daily with Medica l acid breakfast. Branch (FEROCON) 110-0.5 mg capsule ferrous 2021-0 Yes [id number] 1{capsu Take 1 Univers fumarate-b1 6-08 le} capsule by it y of 2-vitamic 00:00: mouth [place] C-folic 00 daily with Medica l acid breakfast. Branch (FEROCON) 110-0.5 mg capsule ferrous 2021-0 Yes [id number] 1{capsu Take 1 Univers fumarate-b1 6-08 le} capsule by it y of 2-vitamic 00:00: mouth [place] C-folic 00 daily with Medica l acid breakfast. Branch (FEROCON) 110-0.5 mg capsule ferrous 2021-0 Yes [id number] 1{capsu Take 1 Univers fumarate-b1 6-08 le} capsule by it y of 2-vitamic 00:00: mouth [place] C-folic 00 daily with Medica l acid breakfast. Branch (FEROCON) 110-0.5 mg capsule ferrous 2021-0 Yes [id number] 1{capsu Take 1 Univers fumarate-b1 6-08 le} capsule by it y of 2-vitamic 00:00: mouth [place] C-folic 00 daily with Medica l acid breakfast. Branch (FEROCON) 110-0.5 mg capsule ferrous 2021-0 Yes [id number] 1{capsu Take 1 Univers fumarate-b1 6-08 le} capsule by it y of 2-vitamic 00:00: mouth [place] C-folic 00 daily with Medica l acid breakfast. Branch (FEROCON) 110-0.5 mg capsule ferrous 2021- No [id number] 1{capsu Take 1 Univers fumarate-b1 6-08 08-31 le} capsule by i ty of 2-vitamic 00:00: 00:00 mouth [place] C-folic 00 :00 daily with Medica l acid breakfast. Branch (FEROCON) 110-0.5 mg capsule docusate Yes [id number] 100mg Take 1 [facility] (COLACE) 3-28 capsule by ity o f 100 mg 00:00: mouth once [place] capsule 00 daily as Medical needed for Branch Constipati on. docusate Yes [id number] 100mg Take 1 [facility] [place] (COLACE) 3-28 capsule by ity o f 100 mg 00:00: mouth once [place] capsule 00 daily as Medical needed for Branch Constipati on. docusate Yes [id number] 100mg Take 1 [facility] [place] (COLACE) 3-28 capsule by ity o f 100 mg 00:00: mouth once [place] capsule 00 daily as Medical needed for Branch Constipati on. docusate Yes [id number] 100mg Take 1 [facility] [place] (COLACE) 3-28 capsule by ity o f 100 mg 00:00: mouth once [place] capsule 00 daily as Medical needed for Branch Constipati on. docusate Yes [id number] 100mg Take 1 [facility] [place] (COLACE) 3-28 capsule by ity o f 100 mg 00:00: mouth once [place] capsule 00 daily as Medical needed for Branch Constipati on. docusate Yes [id number] 100mg Take 1 [facility] [place] (COLACE) 3-28 capsule by ity o f 100 mg 00:00: mouth once [place] capsule 00 daily as Medical needed for Branch Constipati on. docusate Yes [id number] 100mg Take 1 [facility] [place] (COLACE) 3-28 capsule by ity o f 100 mg 00:00: mouth once [place] capsule 00 daily as Medical needed for Branch Constipati on. docusate Yes [id number] 100mg Take 1 Un jose [facility] (COLACE) 3-28 capsule by ity o f 100 mg 00:00: mouth once [place] capsule 00 daily as Medical needed for Branch Constipati on. docusate Yes [id number] 100mg Take 1 [facility] [place] (COLACE) 3-28 capsule by ity o f 100 mg 00:00: mouth once [place] capsule 00 daily as Medical needed for Branch Constipati on. docusate Yes [id number] 100mg Take 1 [facility] [place] (COLACE) 3-28 capsule by ity o f 100 mg 00:00: mouth once [place] capsule 00 daily as Medical needed for Branch Constipati on. docusate Yes [id number] 100mg Take 1 [facility] [place] (COLACE) 3-28 capsule by ity o f 100 mg 00:00: mouth once [place] capsule 00 daily as Medical needed for Branch Constipati on. docusate Yes [id number] 100mg Take 1 [facility] [place] (COLACE) 3-28 capsule by ity o f 100 mg 00:00: mouth once [place] capsule 00 daily as Medical needed for Branch Constipati on. docusate Yes [id number] 100mg Take 1 [facility] [place] (COLACE) 3-28 capsule by ity o f 100 mg 00:00: mouth once [place] capsule 00 daily as Medical needed for Branch Constipati on. docusate Yes [id number] 100mg Take 1 [facility] [place] (COLACE) 3-28 capsule by ity o f 100 mg 00:00: mouth once [place] capsule 00 daily as Medical needed for Branch Constipati on. docusate Yes [id number] 100mg Take 1 [facility] [place] (COLACE) 3-28 capsule by ity o f 100 mg 00:00: mouth once [place] capsule 00 daily as Medical needed for Branch Constipati on. docusate Yes [id number] 100mg Take 1 [facility] [place] (COLACE) 3-28 capsule by ity o f 100 mg 00:00: mouth once [place] capsule 00 daily as Medical needed for Branch Constipati on. docusate Yes [id number] 100mg Take 1 [facility] [place] (COLACE) 3-28 capsule by ity o f 100 mg 00:00: mouth once [place] capsule 00 daily as Medical needed for Branch Constipati on. docusate Yes [id number] 100mg Take 1 [facility] [place] (COLACE) 3-28 capsule by ity o f 100 mg 00:00: mouth once [place] capsule 00 daily as Medical needed for Branch Constipati on. docusate Yes [id number] 100mg Take 1 [facility] [place] (COLACE) 3-28 capsule by ity o f 100 mg 00:00: mouth once [place] capsule 00 daily as Medical needed for Branch Constipati on. docusate Yes [id number] 100mg Take 1 [facility] [place] (COLACE) 3-28 capsule by ity o f 100 mg 00:00: mouth once [place] capsule 00 daily as Medical needed for Branch Constipati on. docusate 2021- No [id number] 100mg Take 1 U nivers (COLACE) 3-28 08-31 capsule by ity of 100 mg 00:00: 00:00 mouth [place] capsule 00 :00 daily as Medical needed for Branch Constipati on. 2020-04 Yes Take by Univer s vit/iron 2-14 mouth. ity of fum/folic 15:21: [facility] (RIGHT 09 Medical STEP Branch VITAMINS ORAL) 2020-04 Yes Take by Univer s vit/iron 2-14 mouth. ity of fum/folic 15:21: [place] [facility] (RIGHT 09 Medical STEP Branch VITAMINS ORAL) 2020-04 Yes Take by Univer s vit/iron 2-14 mouth. ity of fum/folic 15:21: [place] ac (RIGHT 09 Medical STEP Branch VITAMINS ORAL) 2020-04 Yes Take by Univer s vit/iron 2-14 mouth. ity of fum/folic 15:21: [place] ac (RIGHT 09 Medical STEP Branch VITAMINS ORAL) 2020-04 Yes Take by Univer s vit/iron 2-14 mouth. ity of fum/folic 15:21: [place] ac (RIGHT 09 Medical STEP Branch VITAMINS ORAL) 2020-04 Yes Take by Univer s vit/iron 2-14 mouth. ity of fum/folic 15:21: [place] ac (RIGHT 09 Medical STEP Branch VITAMINS ORAL) 2020-04 Yes Take by Univer s vit/iron 2-14 mouth. ity of fum/folic 15:21: [place] ac (RIGHT 09 Medical STEP Branch VITAMINS ORAL) 2020-04 Yes Take by Univer s vit/iron 2-14 mouth. ity of fum/folic 15:21: [place] ac (RIGHT 09 Medical STEP Branch VITAMINS ORAL) 2020-04 Yes Take by Univer s vit/iron 2-14 mouth. ity of fum/folic 15:21: [place] ac (RIGHT 09 Medical STEP Branch VITAMINS ORAL) Immunizations Ordered Immunization Filled Immunization Date Status Commen ts Source Name Name Influenza Virus 2021-04-29 Completed [facility], 00:00:00 [place] Me dical Preserv and ABX Free Bran ch 6 MO-64 YRS Influenza Virus 2021-04-29 Completed Universit y of Vaccine [place] [facility], 00:00:00 [place] Me dical Preserv and ABX Free Bran ch 6 MO-64 YRS Influenza Virus 2021-04-29 Completed Universit y of Vaccine [facility], 00:00:00 [place] Me dical Preserv and ABX Free Bran ch 6 MO-64 YRS Influenza Virus 2021-04-29 Completed Universit y of Vaccine [facility], 00:00:00 [place] Me dical Preserv and ABX Free Bran ch 6 MO-64 YRS Influenza Virus 2021-04-29 Completed Universit y of Vaccine [facility], 00:00:00 [place] Me dical Preserv and ABX Free Bran ch 6 MO-64 YRS Influenza Virus 2021-04-29 Completed Universit y of Vaccine [facility], 00:00:00 [place] Me dical Preserv and ABX Free Bran ch 6 MO-64 YRS Influenza Virus 2021-04-29 Completed Universit y of Vaccine [facility], 00:00:00 [place] Me dical Preserv and ABX Free Bran ch 6 MO-64 YRS Influenza Virus 2021-04-29 Completed Universit y of Vaccine [facility], 00:00:00 [place] Me dical Preserv and ABX Free Bran ch 6 MO-64 YRS Influenza Virus 2021-04-29 Completed Universit y of Vaccine [facility], 00:00:00 [place] Me dical Preserv and ABX Free Bran ch 6 MO-64 YRS Influenza Virus 2021-04-29 Completed Universit y of Vaccine [facility], 00:00:00 [place] Me dical Preserv and ABX Free Bran ch 6 MO-64 YRS Influenza Virus 2021-04-29 Completed Universit y of Vaccine [facility], 00:00:00 [place] Me dical Preserv and ABX Free Bran ch 6 MO-64 YRS Influenza Virus 2021-04-29 Completed Universit y of Vaccine [facility], 00:00:00 [place] Me dical Preserv and ABX Free Bran ch 6 MO-64 YRS Influenza Virus 2021-04-29 Completed Universit y of Vaccine [facility], 00:00:00 [place] Me dical Preserv and ABX Free Bran ch 6 MO-64 YRS Influenza Virus 2021-04-29 Completed Universit y of Vaccine [facility], 00:00:00 [place] Me dical Preserv and ABX Free Bran ch 6 MO-64 YRS Influenza Virus 2021-04-29 Completed Universit y of Vaccine [facility], 00:00:00 [place] Me dical Preserv and ABX Free Bran ch 6 MO-64 YRS Influenza Virus 2021-04-29 Completed Universit y of Vaccine [facility], 00:00:00 [place] Me dical Preserv and ABX Free Bran ch 6 MO-64 YRS Influenza Virus 2021-04-29 Completed Universit y of Vaccine [facility], 00:00:00 [place] Me dical Preserv and ABX Free Bran ch 6 MO-64 YRS Influenza Virus 2021-04-29 Completed Universit y of Vaccine [facility], 00:00:00 [place] Me dical Preserv and ABX Free Bran ch 6 MO-64 YRS Influenza Virus 2021-04-29 Completed Universit y of Vaccine [facility], 00:00:00 [place] Me dical Preserv and ABX Free Bran ch 6 MO-64 YRS Influenza Virus 2021-04-29 Completed Universit y of Vaccine [facility], 00:00:00 [place] Me dical Preserv and ABX Free Bran ch 6 MO-64 YRS Influenza Virus 2021-04-29 Completed Universit y of Vaccine [facility], 00:00:00 [place] Me dical Preserv and ABX Free Bran ch 6 MO-64 YRS Influenza Virus 2021-04-29 Completed Universit y of Vaccine [facility], 00:00:00 [place] Me dical Preserv and ABX Free Bran ch 6 MO-64 YRS Influenza Virus 2021-04-29 Completed Universit y of Vaccine [facility], 00:00:00 [place] Me dical Preserv and ABX Free Bran ch 6 MO-64 YRS Influenza Virus 2021-04-29 Completed Universit y of Vaccine [facility] IM, 00:00:00 [place] Me dical Preserv and ABX Free Bran ch 6 MO-64 YRS Influenza Virus 2021-04-29 Completed Universit y of Vaccine [facility] IM, 00:00:00 [place] Me dical Preserv and ABX Free Bran ch 6 MO-64 YRS Influenza Virus 2021-04-29 Completed Universit y of Vaccine [facility] IM, 00:00:00 [place] Me dical Preserv and ABX Free Bran ch 6 MO-64 YRS Influenza Virus 2021-04-29 Completed Universit y of Vaccine [facility] IM, 00:00:00 [place] Me dical Preserv and ABX Free Bran ch 6 MO-64 YRS Influenza Virus 2021-04-29 Completed Universit y of Vaccine [facility], 00:00:[address] [place] [address] Preserv and ABX Free Bran ch 6 MO-64 YRS Influenza Virus 2021-04-29 Completed Universit y of Vaccine [facility] IM, 00:00:00 [place] Me dical Preserv and ABX Free Bran ch 6 MO-64 YRS Influenza Virus 2021-04-29 Completed Universit y of Vaccine [facility] IM, 00:00:00 [place] Me dical Preserv and ABX Free Bran ch 6 MO-64 YRS Influenza Virus 2021-04-29 Completed Universit y of Vaccine [facility] IM, 00:00:00 [place] Me dical Preserv and ABX Free Bran ch 6 MO-64 YRS Influenza Virus 2021-04-29 Completed Universit y of Vaccine [facility] IM, 00:00:00 [place] Me dical Preserv and ABX Free Bran ch 6 MO-64 YRS Influenza Virus 2021-04-29 Completed Universit y of Vaccine [facility] IM, 00:00:00 [place] Me dical Preserv and ABX Free Bran ch 6 MO-64 YRS Influenza Virus 2021-04-29 Completed Universit y of Vaccine [facility] IM, 00:00:00 [place] Me dical Preserv and ABX Free Bran ch 6 MO-64 YRS Influenza Virus 2021-04-29 Completed Universit y of Vaccine [facility] IM, 00:00:00 [place] Me dical Preserv and ABX Free Bran ch 6 MO-64 YRS Influenza Virus 2021-04-29 Completed Universit y of Vaccine [facility] IM, 00:00:00 [facility] dical Preserv and ABX Free Bran ch 6 MO-64 YRS HPV9 2019-06-14 Completed University of 00:00:00 [facility] HPV9 2019-06-14 Completed University of 00:00:00 [facility] HPV9 2019-06-14 Completed University of 00:00:00 [facility] HPV9 2019-06-14 Completed University of 00:00:00 [facility] HPV9 2019-06-14 Completed University of 00:00:00 [facility] HPV9 2019-06-14 Completed University of 00:00:00 [facility] HPV9 2019-06-14 Completed University of 00:00:00 [facility] HPV9 2019-06-14 Completed University of 00:00:00 [facility] HPV9 2019-06-14 Completed University of 00:00:00 [facility] HPV9 2019-06-14 Completed [facility] 00:00:00 [facility] HPV9 2019-06-14 Completed [facility] 00[facility]00:00 [facility] HPV9 2019-06-14 Completed [facility] 00:00:00 [facility] HPV9 2019-06-14 Completed [facility] 00[facility]00:00 [facility] HPV9 2019-06-14 Completed [facility] 00:00:00 [facility] HPV9 2019-06-14 Completed [facility] 00[facility]00:00 [facility] HPV9 2019-06-14 Completed [facility] 00:00:00 [facility] HPV9 2019-06-14 Completed [facility] 00:00:00 [facility] HPV9 2019-06-14 Completed [facility] 00:00:00 [facility] HPV9 2019-06-14 Completed [facility] 00[facility]00:00 [facility] HPV9 2019-06-14 Completed [facility] 00:00:00 [facility] HPV9 2019-06-14 Completed [facility] 00:00:00 [facility] HPV9 2019-06-14 Completed [facility] 00[facility]00:00 [facility] HPV9 2019-06-14 Completed [facility] 00:00:00 [facility] HPV9 2019-06-14 Completed [facility] 00:00:00 [facility] HPV9 2019-06-14 Completed [facility] 00:00:00 [facility] HPV9 2019-06-14 Completed [facility] 00:00:00 [facility] HPV9 2019-06-14 Completed [facility] 00:00:00 [facility] HPV9 2019-06-14 Completed [facility] 00:00: [facility] HPV9 2019-06-14 Completed [facility] 00:00: [facility] HPV9 2019-06-14 Completed [facility] 00:00:00 [facility] HPV9 2019-06-14 Completed [facility] 00:00:00 [facility] HPV9 2019-06-14 Completed [facility] 00:00:00 [facility] HPV9 2019-06-14 Completed [facility] 00:00:00 [facility] HPV9 2019-06-14 Completed [facility] 00:00:00 [facility] HPV9 2019-06-14 Completed [facility] 00:00:00 [facility] HPV9 2019-06-14 Completed [facility] 00:00:00 [facility] Influenza Virus 2019-04-18 Completed [facility] .5 mL IM 00:00:00 [facility] Influenza Virus 2019-04-18 Completed [facility] .5 mL IM 00:00:00 [facility] Influenza Virus 2019-04-18 Completed [facility] .5 mL IM 00:00:00 [facility] Influenza Virus 2019-04-18 Completed [facility] .5 mL IM 00:00:00 [facility] Influenza Virus 2019-04-18 Completed [facility] .5 mL IM 00:00:00 [facility] Influenza Virus 2019-04-18 Completed [facility] .5 mL IM 00:00:00 [facility] Influenza Virus 2019-04-18 Completed [facility] .5 mL IM 00:00:00 [facility] Influenza Virus 2019-04-18 Completed [facility] .5 mL IM 00:00:00 [facility] Influenza Virus 2019-04-18 Completed [facility] .5 mL IM 00:00:00 [facility] Influenza Virus 2019-04-18 Completed [facility] .5 mL IM 00:00:00 [facility] Influenza Virus 2019-04-18 Completed [facility] .5 mL IM 00:00:00 [facility] Influenza Virus 2019-04-18 Completed [facility] .5 mL IM 00:00:00 [facility] Influenza Virus 2019-04-18 Completed [facility] .5 mL IM 00:00:00 [facility] Influenza Virus 2019-04-18 Completed [facility] .5 mL IM 00:00:00 [facility] Influenza Virus 2019-04-18 Completed [facility] .5 mL IM 00:00:00 [facility] Influenza Virus 2019-04-18 Completed [facility] .5 mL IM 00:00:00 [facility] Influenza Virus 2019-04-18 Completed [facility] .5 mL IM 00:00:00 [facility] Influenza Virus 2019-04-18 Completed [facility] .5 mL IM 00:00:00 [facility] Influenza Virus 2019-04-18 Completed [facility] .5 mL IM 00:00:00 [facility] Influenza Virus 2019-04-18 Completed [facility] .5 mL IM 00:00:00 [facility] Influenza Virus 2019-04-18 Completed [facility] .5 mL IM 00:00:00 [facility] Influenza Virus 2019-04-18 Completed [facility] .5 mL IM 00:00:00 [facility] Influenza Virus 2019-04-18 Completed [facility] .5 mL IM 00:00:00 [facility] Influenza Virus 2019-04-18 Completed [facility] .5 mL IM 00:00:00 [facility] Influenza Virus 2019-04-18 Completed [facility] .5 mL IM 00:00:00 [facility] Influenza Virus 2019-04-18 Completed [facility] .5 mL IM 00:00:00 [facility] Influenza Virus 2019-04-18 Completed [facility] .5 mL IM 00:00:00 [facility] Influenza Virus 2019-04-18 Completed [facility] .5 mL IM 00:00:00 [facility] Influenza Virus 2019-04-18 Completed [facility] .5 mL IM 00:00:00 [facility] Influenza Virus 2019-04-18 Completed [facility] .5 mL IM 00:00:00 [facility] Influenza Virus 2019-04-18 Completed [facility] .5 mL IM 00:00:00 [facility] Influenza Virus 2019-04-18 Completed [facility] .5 mL IM 00:00:00 [facility] Influenza Virus 2019-04-18 Completed [facility] .5 mL IM 00:00:00 [facility] Influenza Virus 2019-04-18 Completed [facility] .5 mL IM 00:00:00 [facility] Influenza Virus 2019-04-18 Completed [facility] .5 mL IM 00:00:00 [facility] Influenza Virus 2019-04-18 Completed [facility] .5 mL IM 00:00:00 [facility] Influenza Virus 2017-01-20 Completed [facility] Vaccine 00:00:00 [facility] Influenza Virus 2017-01-20 Completed [facility] Vaccine 00:00:00 [facility] Influenza Virus 2017-01-20 Completed [facility] Vaccine 00:00:00 [facility] Influenza Virus 2017-01-20 Completed [facility] Vaccine 00:00:00 [facility] Influenza Virus 2017-01-20 Completed [facility] Vaccine 00:00:00 [facility] Influenza Virus 2017-01-20 Completed [facility] Vaccine 00:00:00 [facility] Influenza Virus 2017-01-20 Completed [facility] Vaccine 00:00:00 [facility] Influenza Virus 2017-01-20 Completed [facility] Vaccine 00:00:00 [facility] Influenza Virus 2017-01-20 Completed [facility] Vaccine 00:00:00 [facility] Influenza Virus 2017-01-20 Completed [facility] Vaccine 00:00:00 [facility] Influenza Virus 2017-01-20 Completed [facility] Vaccine 00:00:00 [facility] Influenza Virus 2017-01-20 Completed [facility] Vaccine 00:00:00 [facility] Influenza Virus 2017-01-20 Completed [facility] Vaccine 00:00:00 [facility] Influenza Virus 2017-01-20 Completed [facility] Vaccine 00:00:00 [facility] Influenza Virus 2017-01-20 Completed [facility] Vaccine 00:00:00 [facility] Influenza Virus 2017-01-20 Completed [facility] Vaccine 00:00:00 [facility] Influenza Virus 2017-01-20 Completed [facility] Vaccine 00:00:00 [facility] Influenza Virus 2017-01-20 Completed [facility] of Vaccine 00:00:00 [facility] Influenza Virus 2017-01-20 Completed [facility] Vaccine 00:00:00 [facility] Influenza Virus 2017-01-20 Completed [facility] Vaccine 00:00:00 [facility] Influenza Virus 2017-01-20 Completed [facility] Vaccine 00:00:00 [facility] Influenza Virus 2017-01-20 Completed [facility] Vaccine 00:00:00 [facility] Influenza Virus 2017-01-20 Completed [facility] Vaccine 00:00:00 [facility] Influenza Virus 2017-01-20 Completed [facility] Vaccine 00:00:00 [facility] Influenza Virus 2017-01-20 Completed [facility] Vaccine 00:00:00 [facility] Influenza Virus 2017-01-20 Completed [facility] Vaccine 00:00:00 [facility] Influenza Virus 2017-01-20 Completed [facility] Vaccine 00:00:00 [facility] Influenza Virus 2017-01-20 Completed [facility] Vaccine 00:00:00 [facility] Influenza Virus 2017-01-20 Completed [facility] Vaccine 00:00:00 [facility] Influenza Virus 2017-01-20 Completed [facility] Vaccine 00:00:00 [facility] Influenza Virus 2017-01-20 Completed [facility] Vaccine 00:00:00 [facility] Influenza Virus 2017-01-20 Completed [facility] Vaccine 00:00:00 [facility] Influenza Virus 2017-01-20 Completed [facility] Vaccine 00:00:00 [facility] Influenza Virus 2017-01-20 Completed [facility] y of Vaccine - Whole 00:00:00 [facility] Influenza Virus 2017-01-20 Completed [facility] Vaccine 00:00:00 [facility] Influenza Virus 2017-01-20 Completed [facility] of Vaccine - Whole 00:00:00 [facility] Influenza Virus 2017-01-20 Completed [facility] of Vaccine 00:00:00 [facility] Influenza Virus 2017-01-20 Completed [facility] of Vaccine - Whole 00:00:00 [facility] Influenza Virus 2017-01-20 Completed [facility] Vaccine 00:00:00 [facility] Influenza Virus 2017-01-20 Completed [facility] of Vaccine - Whole 00:00:00 [facility] Meningococcal Vaccine 2014-12-11 Completed Uni versity of 00:00:00 [facility] TDAP 2014-12-11 Completed [facility] 00:00:00 [facility] Varicella 2014-12-11 Completed [facility] (varivax)(chicken 00:00:00 [place] [facility] TDAP (ADACEL) VACCINE 2014-12-11 Completed Uni versity of 00:00:00 [facility] HPV 2014-12-11 Completed [facility] 00:00:00 [facility] Meningococcal Vaccine 2014-12-11 Completed Uni versity of 00:00:00 [facility] TDAP 2014-12-11 Completed [facility] 00:00:00 [facility] Varicella 2014-12-11 Completed [facility] (varivax)(chicken 00:00:00 [place] [facility] TDAP (ADACEL) VACCINE 2014-12-11 Completed Uni versity of 00:00:00 [facility] HPV 2014-12-11 Completed [facility] 00:00:00 [facility] Meningococcal Vaccine 2014-12-11 Completed Uni versity of 00:00:00 [facility] TDAP 2014-12-11 Completed [facility] 00:00:00 [facility] Varicella 2014-12-11 Completed [facility] (varivax)(chicken 00:00:00 [place] [facility] TDAP (ADACEL) VACCINE 2014-12-11 Completed Uni versity of 00:00:00 [facility] HPV 2014-12-11 Completed [facility] 00:00:00 [facility] Meningococcal Vaccine 2014-12-11 Completed Uni versity of 00:00:00 [facility] TDAP 2014-12-11 Completed [facility] 00:00:00 [facility] Varicella 2014-12-11 Completed [facility] (varivax)(chicken 00:00:00 [place] [facility] TDAP (ADACEL) VACCINE 2014-12-11 Completed Uni versity of 00:00:00 [facility] HPV 2014-12-11 Completed [facility] 00:00:00 [facility] Meningococcal Vaccine 2014-12-11 Completed Uni versity of 00:00:00 [facility] TDAP 2014-12-11 Completed [facility] 00:00:00 [facility] Varicella 2014-12-11 Completed [facility] (varivax)(chicken 00:00:00 [place] [facility] TDAP (ADACEL) VACCINE 2014-12-11 Completed Uni versity of 00:00:00 [facility] HPV 2014-12-11 Completed [facility] 00:00:00 [facility] Meningococcal Vaccine 2014-12-11 Completed Uni versity of 00:00:00 [facility] TDAP 2014-12-11 Completed [facility] 00:00:00 [facility] Varicella 2014-12-11 Completed [facility] (varivax)(chicken 00:00:00 [place] [facility] TDAP (ADACEL) VACCINE 2014-12-11 Completed Uni versity of 00:00:00 [facility] HPV 2014-12-11 Completed [facility] 00:00:00 [facility] Meningococcal Vaccine 2014-12-11 Completed Uni versity of 00:00:00 [facility] TDAP 2014-12-11 Completed [facility] 00:00:00 [facility] Varicella 2014-12-11 Completed [facility] (varivax)(chicken 00:00:00 [place] [facility] TDAP (ADACEL) VACCINE 2014-12-11 Completed Uni versity of 00:00:00 [facility] HPV 2014-12-11 Completed [facility] 00:00:00 [facility] Meningococcal Vaccine 2014-12-11 Completed [facility] versity of 00:00:00 [facility] TDAP 2014-12-11 Completed [facility] 00:00:00 [facility] Varicella 2014-12-11 Completed [facility] (varivax)(chicken 00:00:00 [place] [facility] TDAP (ADACEL) VACCINE 2014-12-11 Completed [facility] versity of 00:00:00 [facility] HPV 2014-12-11 Completed [facility] 00:00:00 [facility] Meningococcal Vaccine 2014-12-11 Completed [facility] vers[facility] of 00:00:00 [facility] TDAP 2014-12-11 Completed [facility] 00:00:00 [facility] Varicella 2014-12-11 Completed [facility] (varivax)(chicken 00:00:00 [place] [facility] TDAP (ADACEL) VACCINE 2014-12-11 Completed [facility] vers[facility] of 00:00:00 [facility] HPV 2014-12-11 Completed [facility] 00:00:00 [facility] Meningococcal Vaccine 2014-12-11 Completed [facility] versity of 00:00:00 [facility] TDAP 2014-12-11 Completed [facility] 00:00:00 [facility] Varicella 2014-12-11 Completed [facility] (varivax)(chicken 00:00:00 [place] [facility] TDAP (ADACEL) VACCINE 2014-12-11 Completed [facility] versity of 00:00:00 [facility] HPV 2014-12-11 Completed [facility] 00:00:00 [facility] Meningococcal Vaccine 2014-12-11 Completed [facility] versity of 00:00:00 [facility] TDAP 2014-12-11 Completed [facility] 00:00:00 [facility] Varicella 2014-12-11 Completed [facility] (varivax)(chicken 00:00:00 [place] [facility] TDAP (ADACEL) VACCINE 2014-12-11 Completed [facility] vers[facility] of 00:00:00 [facility] HPV 2014-12-11 Completed [facility] 00:00:00 [facility] Meningococcal Vaccine 2014-12-11 Completed [facility] versity of 00:00:00 [facility] TDAP 2014-12-11 Completed [facility] 00:00:00 [facility] Varicella 2014-12-11 Completed [facility] (varivax)(chicken 00:00:00 [place] [facility] TDAP (ADACEL) VACCINE 2014-12-11 Completed [facility] versity of 00:00:00 [facility] HPV 2014-12-11 Completed [facility] 00:00:00 [facility] Meningococcal Vaccine 2014-12-11 Completed [facility] versity of 00:00:00 [facility] TDAP 2014-12-11 Completed [facility] 00:00:00 [facility] Varicella 2014-12-11 Completed [facility] (varivax)(chicken 00:00:00 [place] [facility] TDAP (ADACEL) VACCINE 2014-12-11 Completed [facility] vers[facility] of 00:00:00 [facility] HPV 2014-12-11 Completed [facility] 00:00:00 [facility] Meningococcal Vaccine 2014-12-11 Completed [facility] versity of 00:00:00 [facility] TDAP 2014-12-11 Completed [facility] 00:00:00 [facility] Varicella 2014-12-11 Completed [facility] (varivax)(chicken 00:00:00 [place] [facility] TDAP (ADACEL) VACCINE 2014-12-11 Completed [facility] versity of 00:00:00 [facility] HPV 2014-12-11 Completed [facility] 00:00:00 [facility] Meningococcal Vaccine 2014-12-11 Completed [facility] vers[facility] of 00:00:00 [facility] TDAP 2014-12-11 Completed [facility] 00:00:00 [facility] Varicella 2014-12-11 Completed [facility] (varivax)(chicken 00:00:00 [place] [facility] TDAP (ADACEL) VACCINE 2014-12-11 Completed [facility] versity of 00:00:00 [facility] HPV 2014-12-11 Completed [facility] 00:00:00 [facility] Meningococcal Vaccine 2014-12-11 Completed [facility] versity of 00:00:00 [facility] TDAP 2014-12-11 Completed [facility] 00:00:00 [facility] Varicella 2014-12-11 Completed [facility] (varivax)(chicken 00:00:00 [place] [facility] TDAP (ADACEL) VACCINE 2014-12-11 Completed [facility] vers[facility] of 00:00:00 [facility] HPV 2014-12-11 Completed [facility] 00:00:00 [facility] Meningococcal Vaccine 2014-12-11 Completed [facility] versity of 00:00:00 [facility] TDAP 2014-12-11 Completed [facility] 00:00:00 [facility] Varicella 2014-12-11 Completed [facility] (varivax)(chicken 00:00:00 [place] [facility] TDAP (ADACEL) VACCINE 2014-12-11 Completed [facility] vers[facility] of 00:00:00 [facility] HPV 2014-12-11 Completed [facility] 00:00:00 [facility] Meningococcal Vaccine 2014-12-11 Completed [facility] vers[facility] of 00:00:00 [facility] TDAP 2014-12-11 Completed [facility] 00:00:00 [facility] Varicella 2014-12-11 Completed [facility] (varivax)(chicken 00:00:00 [place] [facility] TDAP (ADACEL) VACCINE 2014-12-11 Completed [facility] vers[facility] of 00:00:00 [facility] HPV 2014-12-11 Completed [facility] 00:00:00 [facility] Meningococcal Vaccine 2014-12-11 Completed [facility] vers[facility] of 00:00:00 [facility] TDAP 2014-12-11 Completed [facility] 00:00:00 [facility] Varicella 2014-12-11 Completed [facility] (varivax)(chicken 00:00:00 [place] [facility] TDAP (ADACEL) VACCINE 2014-12-11 Completed [facility] vers[facility] of 00:00:00 [facility] HPV 2014-12-11 Completed [facility] 00:00:00 [facility] Meningococcal Vaccine 2014-12-11 Completed [facility] versity of 00:00:00 [facility] TDAP 2014-12-11 Completed [facility] 00:00:00 [facility] Varicella 2014-12-11 Completed [facility] (varivax)(chicken 00:00:00 [place] [facility] TDAP (ADACEL) VACCINE 2014-12-11 Completed [facility] versity of 00:00:00 [facility] HPV 2014-12-11 Completed [facility] 00:00:00 [facility] Meningococcal Vaccine 2014-12-11 Completed [facility] vers[facility] of 00:00:00 [facility] TDAP 2014-12-11 Completed [facility] 00:00:00 [facility] Varicella 2014-12-11 Completed [facility] (varivax)(chicken 00:00:00 [place] [facility] TDAP (ADACEL) VACCINE 2014-12-11 Completed [facility] vers[facility] of 00:00:00 [facility] HPV 2014-12-11 Completed [facility] 00:00:00 [facility] Meningococcal Vaccine 2014-12-11 Completed [facility] vers[facility] of 00:00:00 [facility] TDAP 2014-12-11 Completed [facility] 00:00:00 [facility] Varicella 2014-12-11 Completed [facility] (varivax)(chicken 00:00:00 [place] [facility] TDAP (ADACEL) VACCINE 2014-12-11 Completed [facility] vers[facility] of 00:00:00 [facility] HPV 2014-12-11 Completed [facility] 00:00:00 [facility] Meningococcal Vaccine 2014-12-11 Completed [facility] vers[facility] of 00:00:00 [facility] TDAP 2014-12-11 Completed [facility] 00:00:00 [facility] Varicella 2014-12-11 Completed [facility] (varivax)(chicken 00:00:00 [place] [facility] TDAP (ADACEL) VACCINE 2014-12-11 Completed [facility] vers[facility] of 00:00:00 [facility] HPV 2014-12-11 Completed [facility] 00:00:00 [facility] Meningococcal Vaccine 2014-12-11 Completed [facility] vers[facility] of 00:00:00 [facility] TDAP 2014-12-11 Completed [facility] 00:00:00 [facility] Varicella 2014-12-11 Completed [facility] (varivax)(chicken 00:00:00 [place] [facility] TDAP (ADACEL) VACCINE 2014-12-11 Completed [facility] vers[facility] of 00:00:00 [facility] HPV 2014-12-11 Completed [facility] 00:00:00 [facility] Meningococcal Vaccine 2014-12-11 Completed [facility] vers[facility] of 00:00:00 [facility] TDAP 2014-12-11 Completed [facility] 00:00:00 [facility] Varicella 2014-12-11 Completed [facility] (varivax)(chicken 00:00:00 [place] [facility] TDAP (ADACEL) VACCINE 2014-12-11 Completed [facility] vers[facility] of 00:00:00 [facility] HPV 2014-12-11 Completed [facility] 00:00:00 [facility] Meningococcal Vaccine 2014-12-11 Completed [facility] of 00:00:00 [facility] TDAP 2014-12-11 Completed [facility] 00:00:00 [facility] Varicella 2014-12-11 Completed [facility] (varivax)(chicken 00:00:00 [place] [facility] TDAP (ADACEL) VACCINE 2014-12-11 Completed [facility] vers[facility] of 00:00:00 [facility] HPV 2014-12-11 Completed [facility] 00:00:00 [facility] Meningococcal Vaccine 2014-12-11 Completed [facility] of 00:00:00 [facility] TDAP 2014-12-11 Completed [facility] 00:00:00 [facility] Varicella 2014-12-11 Completed [facility] (varivax)(chicken 00:00:00 [place] [facility] TDAP (ADACEL) VACCINE 2014-12-11 Completed [facility] vers[facility] 00:00:00 [facility] HPV 2014-12-11 Completed [facility] 00:00:00 [facility] Meningococcal Vaccine 2014-12-11 Completed [facility] 00:00:00 [facility] TDAP 2014-12-11 Completed [facility] 00:00:00 [facility] Varicella 2014-12-11 Completed [facility] (varivax)(chicken 00:00:00 [place] [facility] TDAP (ADACEL) VACCINE 2014-12-11 Completed [facility] vers[facility] of 00:00:00 [facility] HPV 2014-12-11 Completed [facility] 00:00:00 [facility] Meningococcal Vaccine 2014-12-11 Completed [facility] vers[facility] of 00:00:00 [facility] TDAP 2014-12-11 Completed [facility] 00:00:00 [facility] Varicella 2014-12-11 Completed [facility] (varivax)(chicken 00:00:00 [place] [facility] TDAP (ADACEL) VACCINE 2014-12-11 Completed [facility] vers[facility] of 00:00:00 [facility] HPV 2014-12-11 Completed [facility] 00:00:00 [facility] Meningococcal Vaccine 2014-12-11 Completed [facility] vers[facility] of 00:00:00 [facility] TDAP 2014-12-11 Completed [facility] 00:00:00 [facility] Varicella 2014-12-11 Completed [facility] (varivax)(chicken 00:00:00 [place] [facility] TDAP (ADACEL) VACCINE 2014-12-11 Completed [facility] vers[facility] 00:00:00 [facility] HPV 2014-12-11 Completed [facility] 00:00:00 [facility] Meningococcal Vaccine 2014-12-11 Completed Uni versity of 00:00:00 [facility] TDAP 2014-12-11 Completed [facility] of 00:00:00 [facility] Varicella 2014-12-11 Completed University of (varivax)(chicken 00:00:00 [facility] edical pox) Branch HPV9 2014-12-11 Completed [facility] of 00:00:00 [facility] Meningococcal 2014-12-11 Completed University of Polysaccharide 00:00:00 [facility] zofia (groups A, C, Y and Branc h W-135) conjugate vaccine (MCV4P) TDAP (ADACEL) VACCINE 2014-12-11 Completed Uni versity of 00:00:00 [facility] HPV 2014-12-11 Completed [facility] of 00:00:00 [facility] Meningococcal Vaccine 2014-12-11 Completed Uni versity of 00:00:00 [facility] TDAP 2014-12-11 Completed [facility] of 00:00:00 [facility] Varicella 2014-12-11 Completed University of (varivax)(chicken 00:00:00 [place] [facility] pox) [facility] HPV9 2014-12-11 Completed [facility] 00:00:00 [facility] Meningococcal 2014-12-11 Completed [facility] Polysaccharide 00:00:00 [place] [facility] zofia (groups A, C, Y and Branc h W-135) conjugate vaccine (MCV4P) TDAP (ADACEL) VACCINE 2014-12-11 Completed Uni versity of 00:00:00 [facility] HPV 2014-12-11 Completed [facility] of 00:00:00 [facility] Meningococcal Vaccine 2014-12-11 Completed Uni versity of 00:00:00 [facility] TDAP 2014-12-11 Completed [facility] of 00:00:00 [facility] Varicella 2014-12-11 Completed University of (varivax)(chicken 00:00:00 [place] [facility] pox) Branch HPV9 2014-12-11 Completed [facility] 00:00:00 [facility] Meningococcal 2014-12-11 Completed [facility] of Polysaccharide 00:00:00 [place] [facility] zof[facility] (groups A, C, Y and Branc h W-135) conjugate vaccine (MCV4P) TDAP (ADACEL) VACCINE 2014-12-11 Completed Uni versity of 00:00:00 [facility] HPV 2014-12-11 Completed [facility] of 00:00:00 [facility] Meningococcal Vaccine 2014-12-11 Completed Uni versity of 00:00:00 [facility] TDAP 2014-12-11 Completed [facility] of 00:00:00 [facility] Varicella 2014-12-11 Completed [facility] of (varivax)(chicken 00:00:00 [place] [facility] pox) Branch HPV9 2014-12-11 Completed [facility] of 00:00:00 [facility] Meningococcal 2014-12-11 Completed [facility] Polysaccharide 00:00:00 [place] [facility]of[facility] (groups A, C, Y and Branc h W-135) conjugate vaccine (MCV4P) TDAP (ADACEL) VACCINE 2014-12-11 Completed Uni versity of 00:00:00 [facility] HPV 2014-12-11 Completed [facility] of 00:00:00 [facility] Meningococcal Vaccine 2014-12-11 Completed Uni versity of 00:00:00 [facility] Branch TDAP 2014-12-11 Completed [facility] of 00:00:00 [facility] Varicella 2014-12-11 Completed [facility] of (varivax)(chicken 00:00:00 [place] [facility] pox) Branch TDAP (ADACEL) VACCINE 2014-12-11 Completed Uni versity of 00:00:00 [facility] HPV 2014-12-11 Completed [facility] of 00:00:00 [facility] Meningococcal Vaccine 2014-12-11 Completed Uni versity of 00:00:00 [facility] TDAP 2014-12-11 Completed [facility] of 00:00:00 [facility] Varicella 2014-12-11 Completed [facility] of (varivax)(chicken 00:00:00 [place] [facility] pox) Branch TDAP (ADACEL) VACCINE 2014-12-11 Completed Uni versity of 00:00:00 [facility] HPV 2014-12-11 Completed [facility] of 00:00:00 [facility] HEPATITIS A 2006-08-18 Completed [facility] of 00:00:00 [facility] HEPATITIS A 2006-08-18 Completed [facility] of 00:00:00 [facility] HEPATITIS A 2006-08-18 Completed [facility] of 00:00:00 [facility] HEPATITIS A 2006-08-18 Completed [facility] of 00:00:00 [facility] HEPATITIS A 2006-08-18 Completed [facility] of 00:00:00 [facility] HEPATITIS A 2006-08-18 Completed [facility] of 00:00:00 [facility] HEPATITIS A 2006-08-18 Completed [facility] of 00:00:00 [facility] HEPATITIS A 2006-08-18 Completed [facility] of 00:00:00 [facility] HEPATITIS A 2006-08-18 Completed [facility] of 00:00:00 [facility] HEPATITIS A 2006-08-18 Completed [facility] of 00:00:00 [facility] HEPATITIS A 2006-08-18 Completed [facility] of 00:00:00 [facility] HEPATITIS A 2006-08-18 Completed [facility] of 00:00:00 [facility] HEPATITIS A 2006-08-18 Completed [facility] of 00:00:00 [facility] HEPATITIS A 2006-08-18 Completed [facility] 00:00:00 [facility] HEPATITIS A 2006-08-18 Completed [facility] 00:00:00 [facility] HEPATITIS A 2006-08-18 Completed [facility] 00:00:00 [facility] HEPATITIS A 2006-08-18 Completed [facility] of 00:00:00 [facility] HEPATITIS A 2006-08-18 Completed [facility] of 00:00:00 [facility] HEPATITIS A 2006-08-18 Completed [facility] 00:00:00 [facility] HEPATITIS A 2006-08-18 Completed [facility] 00:00:00 [facility] HEPATITIS A 2006-08-18 Completed [facility] 00:00:00 [facility] HEPATITIS A 2006-08-18 Completed [facility] 00:00:00 [facility] HEPATITIS A 2006-08-18 Completed [facility] 00:00:00 [facility] HEPATITIS A 2006-08-18 Completed [facility] 00:00:00 [facility] HEPATITIS A 2006-08-18 Completed [facility] 00:00:00 [facility] HEPATITIS A 2006-08-18 Completed [facility] 00:00:00 [facility] HEPATITIS A 2006-08-18 Completed [facility] 00:00:00 [facility] HEPATITIS A 2006-08-18 Completed [facility] 00:00:00 [facility] HEPATITIS A 2006-08-18 Completed [facility] 00:00:00 [facility] HEPATITIS A 2006-08-18 Completed [facility] 00:00:00 [facility] HEPATITIS A 2006-08-18 Completed [facility] 00:00:00 [facility] HEPATITIS A 2006-08-18 Completed [facility] 00:00:00 [facility] HEPATITIS A 2006-08-18 Completed [facility] 00:00:00 [facility] HEPATITIS A 2006-08-18 Completed [facility] 00:00:00 [facility] HEPATITIS A 2006-08-18 Completed [facility] 00:00:00 [facility] HEPATITIS A 2006-08-18 Completed [facility] of 00:00:00 [facility] Polio (IPV/OPV) 2005-11-20 Completed Universit y of 00:00:00 [facility] Polio (IPV/OPV) 2005-11-20 Completed Universit y of 00:00:00 [facility] Polio (IPV/OPV) 2005-11-20 Completed Universit y of 00:00:00 [facility] Polio (IPV/OPV) 2005-11-20 Completed Universit y [...] (IPV/OPV) 2005-11-20 Completed Universit y of 00:00:00 [facility] Polio (IPV/OPV) 2005-11-20 Completed Universit y of 00:00:00 [facility] Polio (IPV/OPV) 2005-11-20 Completed Universit y of 00:00:00 [facility] Polio (IPV/OPV) 2005-11-20 Completed Universit y of 00:00:00 [facility] Polio (IPV/OPV) 2005-11-20 Completed Universit y of 00:00:00 [facility] Polio (IPV/OPV) 2005-11-20 Completed Universit y of 00:00:00 [facility] Polio (IPV/OPV) 2005-11-20 Completed Universit y of 00:00:00 [facility] Polio (IPV/OPV) 2005-11-20 Completed Universit y of 00:00:00 [facility] Polio (IPV/OPV) 2005-11-20 Completed Universit y of 00:00:00 [facility] Polio (IPV/OPV) 2005-11-20 Completed Universit y of 00:00:00 [facility] IPV 2005-11-20 Completed [facility] of 00:00:00 [facility] Polio (IPV/OPV) 2005-11-20 Completed Universit y of 00:00:00 [facility] IPV 2005-11-20 Completed [facility] of 00:00:00 [facility] Polio (IPV/OPV) 2005-11-20 Completed Universit y of 00:00:00 [facility] IPV 2005-11-20 Completed [facility] of 00:00:00 [facility] Polio (IPV/OPV) 2005-11-20 Completed Universit y of 00:00:00 [facility] IPV 2005-11-20 Completed [facility] 00:00:00 [facility] DTAP 2005-08-03 Completed [facility] of 00:00:00 [facility] HEPATITIS A 2005-08-03 Completed [facility] of 00:00:00 [facility] MMR 2005-08-03 Completed [facility] of 00:00:00 [facility] Pneumococcal 13 2005-08-03 Completed Universit y of Conjugate, PCV13 00:00:00 [facility] dical (Prevnar 13) Branch DTAP 2005-08-03 Completed University of 00:00:00 [facility] HEPATITIS A 2005-08-03 Completed [facility] of 00:00:00 [facility] MMR 2005-08-03 Completed [facility] of 00:00:00 [facility] Pneumococcal 13 2005-08-03 Completed Universit y of Conjugate, PCV13 00:00:00 [place] [facility] (Prevnar 13) Branch DTAP 2005-08-03 Completed [facility] of 00:00:00 [facility] HEPATITIS A 2005-08-03 Completed [facility] of 00:00:00 [facility] MMR 2005-08-03 Completed [facility] of 00:00:00 [facility] Pneumococcal 13 2005-08-03 Completed Universit y of Conjugate, PCV13 00:00:00 [place] [facility] (Prevnar 13) Branch DTAP 2005-08-03 Completed [facility] of 00:00:00 [facility] HEPATITIS A 2005-08-03 Completed [facility] of 00:00:00 [facility] MMR 2005-08-03 Completed [facility] of 00:00:00 [facility] Pneumococcal 13 2005-08-03 Completed Universit y of Conjugate, PCV13 00:00:00 [place] [facility] (Prevnar 13) Branch DTAP 2005-08-03 Completed [facility] of 00:00:00 [facility] HEPATITIS A 2005-08-03 Completed [facility] of 00:00:00 [facility] 2005-08-03 Completed [facility] of 00:00:00 [facility] Pneumococcal 13 2005-08-03 Completed Universit y of Conjugate, PCV13 00:00:00 [place] [facility] (Prevnar 13) Branch DTAP 2005-08-03 Completed [facility] of 00:00:00 [facility] HEPATITIS A 2005-08-03 Completed [facility] of 00:00:00 [facility] MMR 2005-08-03 Completed [facility] of 00:00:00 [facility] Pneumococcal 13 2005-08-03 Completed Universit y of Conjugate, PCV13 00:00:00 [place] [facility] (Prevnar 13) Branch DTAP 2005-08-03 Completed [facility] of 00:00:00 [facility] HEPATITIS A 2005-08-03 Completed [facility] of 00:00:00 [facility] MMR 2005-08-03 Completed [facility] of 00:00:00 [facility] Pneumococcal 13 2005-08-03 Completed Universit y of Conjugate, PCV13 00:00:00 [place] [facility] (Prevnar 13) Branch DTAP 2005-08-03 Completed [facility] of 00:00:00 [facility] HEPATITIS A 2005-08-03 Completed [facility] of 00:00:00 [facility] MMR 2005-08-03 Completed [facility] of 00:00:00 [facility] Pneumococcal 13 2005-08-03 Completed Universit y of Conjugate, PCV13 00:00:00 [place] [facility] (Prevnar 13) Branch DTAP 2005-08-03 Completed [facility] of 00:00:00 [facility] HEPATITIS A 2005-08-03 Completed [facility] of 00:00:00 [facility] MMR 2005-08-03 Completed [facility] 00:00:00 [facility] Pneumococcal 13 2005-08-03 Completed Universit y of Conjugate, PCV13 00:00:00 [place] [facility] (Prevnar 13) Branch DTAP 2005-08-03 Completed [facility] of 00:00:00 [facility] HEPATITIS A 2005-08-03 Completed [facility] of 00:00:00 [facility] MMR 2005-08-03 Completed [facility] of 00:00:00 [facility] Pneumococcal 13 2005-08-03 Completed Universit y of Conjugate, PCV13 00:00:00 [facility] dical (Prevnar 13) Branch DTAP 2005-08-03 Completed [facility] of 00:00:00 [facility] HEPATITIS A 2005-08-03 Completed [facility] of 00:00:00 [facility] MMR 2005-08-03 Completed [facility] 00:00:00 [facility] Pneumococcal 13 2005-08-03 Completed Universit y of Conjugate, PCV13 00:00:00 [place] [facility] (Prevnar 13) Branch DTAP 2005-08-03 Completed [facility] of 00:00:00 [facility] HEPATITIS A 2005-08-03 Completed [facility] of 00:00:00 [facility] MMR 2005-08-03 Completed [facility] of 00:00:00 [facility] Pneumococcal 13 2005-08-03 Completed Universit y of Conjugate, PCV13 00:00:00 [place] [facility] (Prevnar 13) Branch DTAP 2005-08-03 Completed [facility] of 00:00:00 [facility] HEPATITIS A 2005-08-03 Completed [facility] of 00:00:00 [facility] MMR 2005-08-03 Completed [facility] of 00:00:00 [facility] Pneumococcal 13 2005-08-03 Completed Universit y of Conjugate, PCV13 00:00:00 [place] [facility] (Prevnar 13) Branch DTAP 2005-08-03 Completed [facility] of 00:00:00 [facility] HEPATITIS A 2005-08-03 Completed [facility] of 00:00:00 [facility] MMR 2005-08-03 Completed [facility] of 00:00:00 [facility] Pneumococcal 13 2005-08-03 Completed Universit y of Conjugate, PCV13 00:00:00 [place] [facility] (Prevnar 13) Branch DTAP 2005-08-03 Completed [facility] of 00:00:00 [facility] HEPATITIS A 2005-08-03 Completed [facility] of 00:00:00 [facility] MMR 2005-08-03 Completed [facility] of 00:00:00 [facility] Pneumococcal 13 2005-08-03 Completed Universit y of Conjugate, PCV13 00:00:00 [place] [facility] (Prevnar 13) Branch DTAP 2005-08-03 Completed [facility] of 00:00:00 [facility] HEPATITIS A 2005-08-03 Completed [facility] of 00:00:00 [facility] MMR 2005-08-03 Completed [facility] of 00:00:00 [facility] Pneumococcal 13 2005-08-03 Completed Universit y of Conjugate, PCV13 00:00:00 [facility] dical (Prevnar 13) Branch DTAP 2005-08-03 Completed [facility] of 00:00:00 [facility] HEPATITIS A 2005-08-03 Completed [facility] of 00:00:00 [facility] MMR 2005-08-03 Completed [facility] of 00:00:00 [facility] Pneumococcal 13 2005-08-03 Completed Universit y of Conjugate, PCV13 00:00:00 [place] [facility] (Prevnar 13) Branch DTAP 2005-08-03 Completed [facility] of 00:00:00 [facility] HEPATITIS A 2005-08-03 Completed [facility] of 00:00:00 [facility] MMR 2005-08-03 Completed [facility] of 00:00:00 [facility] Pneumococcal 13 2005-08-03 Completed Universit y of Conjugate, PCV13 00:00:00 [place] [facility] (Prevnar 13) Branch DTAP 2005-08-03 Completed [facility] of 00:00:00 [facility] HEPATITIS A 2005-08-03 Completed [facility] of 00:00:00 [facility] MMR 2005-08-03 Completed [facility] of 00:00:00 [facility] Pneumococcal 13 2005-08-03 Completed Universit y of Conjugate, PCV13 00:00:00 [place] [facility] (Prevnar 13) Branch DTAP 2005-08-03 Completed [facility] of 00:00:00 [facility] HEPATITIS A 2005-08-03 Completed [facility] of 00:00:00 [facility] MMR 2005-08-03 Completed [facility] of 00:00:00 [facility] Pneumococcal 13 2005-08-03 Completed Universit y of Conjugate, PCV13 00:00:00 [place] [facility] (Prevnar 13) Branch DTAP 2005-08-03 Completed [facility] of 00:00:00 [facility] HEPATITIS A 2005-08-03 Completed [facility] of 00:00:00 [facility] MMR 2005-08-03 Completed [facility] of 00:00:00 [facility] Pneumococcal 13 2005-08-03 Completed Universit y of Conjugate, PCV13 00:00:00 [facility] dical (Prevnar 13) Branch DTAP 2005-08-03 Completed University of 00:00:00 [facility] HEPATITIS A 2005-08-03 Completed University of 00:00:00 [facility] MMR 2005-08-03 Completed [facility] of 00:00:00 [facility] Pneumococcal 13 2005-08-03 Completed Universit y of Conjugate, PCV13 00:00:00 [facility] dical (Prevnar 13) Branch DTAP 2005-08-03 Completed [facility] of 00:00:00 [facility] HEPATITIS A 2005-08-03 Completed [facility] of 00:00:00 [facility] MMR 2005-08-03 Completed [facility] of 00:00:00 [facility] Pneumococcal 13 2005-08-03 Completed Universit y of Conjugate, PCV13 00:00:00 [facility] dical (Prevnar 13) Branch DTAP 2005-08-03 Completed [facility] of 00:00:00 [facility] HEPATITIS A 2005-08-03 Completed [facility] of 00:00:00 [facility] MMR 2005-08-03 Completed [facility] of 00:00:00 [facility] Pneumococcal 13 2005-08-03 Completed Universit y of Conjugate, PCV13 00:00:00 [place] [facility] (Prevnar 13) Branch DTAP 2005-08-03 Completed [facility] of 00:00:00 [facility] HEPATITIS A 2005-08-03 Completed [facility] of 00:00:00 [facility] MMR 2005-08-03 Completed [facility] of 00:00:00 [facility] Pneumococcal 13 2005-08-03 Completed Universit y of Conjugate, PCV13 00:00:00 [place] [facility] (Prevnar 13) Branch DTAP 2005-08-03 Completed [facility] of 00:00:00 [facility] HEPATITIS A 2005-08-03 Completed [facility] of 00:00:00 [facility] MMR 2005-08-03 Completed [facility] of 00:00:00 [facility] Pneumococcal 13 2005-08-03 Completed Universit y of Conjugate, PCV13 00:00:00 [place] [facility] (Prevnar 13) Branch DTAP 2005-08-03 Completed [facility] of 00:00:00 [facility] HEPATITIS A 2005-08-03 Completed [facility] of 00:00:00 [facility] MMR 2005-08-03 Completed [facility] of 00:00:00 [facility] Pneumococcal 13 2005-08-03 Completed Universit y of Conjugate, PCV13 00:00:00 [place] [facility] (Prevnar 13) Branch DTAP 2005-08-03 Completed [facility] of 00:00:00 [facility] HEPATITIS A 2005-08-03 Completed [facility] of 00:00:00 [facility] MMR 2005-08-03 Completed [facility] of 00:00:00 [facility] Pneumococcal 13 2005-08-03 Completed Universit y of Conjugate, PCV13 00:00:00 [facility] dical (Prevnar 13) Branch DTAP 2005-08-03 Completed [facility] of 00:00:00 [facility] HEPATITIS A 2005-08-03 Completed [facility] of 00:00:00 [facility] MMR 2005-08-03 Completed [facility] of 00:00:00 [facility] Pneumococcal 13 2005-08-03 Completed Universit y of Conjugate, PCV13 00:00:00 [facility] dical (Prevnar 13) Branch DTAP 2005-08-03 Completed [facility] of 00:00:00 [facility] HEPATITIS A 2005-08-03 Completed [facility] of 00:00:00 [facility] MMR 2005-08-03 Completed [facility] of 00:00:00 [facility] Pneumococcal 13 2005-08-03 Completed Universit y of Conjugate, PCV13 00:00:00 [place] [facility] (Prevnar 13) Branch DTAP 2005-08-03 Completed [facility] of 00:00:00 [facility] HEPATITIS A 2005-08-03 Completed [facility] of 00:00:00 [facility] MMR 2005-08-03 Completed [facility] of 00:00:00 [facility] Pneumococcal 13 2005-08-03 Completed Universit y of Conjugate, PCV13 00:00:00 [place] [facility] (Prevnar 13) Branch DTAP 2005-08-03 Completed [facility] of 00:00:00 [facility] HEPATITIS A 2005-08-03 Completed [facility] of 00:00:00 [facility] MMR 2005-08-03 Completed [facility] of 00:00:00 [facility] Pneumococcal 13 2005-08-03 Completed Universit y of Conjugate, PCV13 00:00:00 [place] [facility] (Prevnar 13) Branch DTAP 2005-08-03 Completed [facility] of 00:00:00 [facility] HEPATITIS A 2005-08-03 Completed [facility] of 00:00:00 [facility] MMR 2005-08-03 Completed [facility] 00:00:00 [facility] Pneumococcal 13 2005-08-03 Completed Universit y of Conjugate, PCV13 00:00:00 [place] [facility] (Prevnar 13) Branch Pneumococcal 7 2005-08-03 Completed University of Conjugate, PCV7 00:00:00 [place] [facility] (Prevnar7) Branch DTAP 2005-08-03 Completed [facility] of 00:00:00 [facility] HEPATITIS A 2005-08-03 Completed [facility] of 00:00:00 [facility] MMR 2005-08-03 Completed [facility] of 00:00:00 [facility] Pneumococcal 13 2005-08-03 Completed Universit y of Conjugate, PCV13 00:00:00 [place] [facility] (Prevnar 13) Branch Pneumococcal 7 2005-08-03 Completed University of Conjugate, PCV7 00:00:00 [place] [facility] (Prevnar7) Branch DTAP 2005-08-03 Completed [facility] of 00:00:00 [facility] HEPATITIS A 2005-08-03 Completed [facility] of 00:00:00 [facility] MMR 2005-08-03 Completed [facility] of 00:00:00 [facility] Pneumococcal 13 2005-08-03 Completed Universit y of Conjugate, PCV13 00:00:00 [place] [facility] (Prevnar 13) Branch Pneumococcal 7 2005-08-03 Completed University of Conjugate, PCV7 00:00:00 [place] [facility] (Prevnar7) Branch DTAP 2005-08-03 Completed [facility] of 00:00:00 [facility] HEPATITIS A 2005-08-03 Completed [facility] of 00:00:00 [facility] MMR 2005-08-03 Completed [facility] of 00:00:00 [facility] Pneumococcal 13 2005-08-03 Completed Universit y of Conjugate, PCV13 00:00:00 [place] [facility] (Prevnar 13) Branch Pneumococcal 7 2005-08-03 Completed University of Conjugate, PCV7 00:00:00 [place] [facility] (Prevnar7) Branch DTAP 2003-11-29 Completed [facility] of 00:00:00 [facility] HIB 4 Dose Schedule 2003-11-29 Completed Unive rsity of 00:00:00 [facility] DTAP 2003-11-29 Completed [facility] of 00:00:00 [facility] HIB 4 Dose Schedule 2003-11-29 Completed Unive rsity of 00:00:00 [facility] DTAP 2003-11-29 Completed [facility] of 00:00:00 [facility] HIB 4 Dose Schedule 2003-11-29 Completed Unive rsity of 00:00:00 [facility] DTAP 2003-11-29 Completed [facility] of 00:00:00 [facility] HIB 4 Dose Schedule 2003-11-29 Completed Unive rsity of 00:00:00 [facility] DTAP 2003-11-29 Completed [facility] of 00:00:00 [facility] HIB 4 Dose Schedule 2003-11-29 Completed Unive rsity of 00:00:00 [facility] DTAP 2003-11-29 Completed [facility] of 00:00:00 [facility] HIB 4 Dose Schedule 2003-11-29 Completed Unive rsity of 00:00:00 [facility] DTAP 2003-11-29 Completed [facility] of 00:00:00 [facility] HIB 4 Dose Schedule 2003-11-29 Completed Unive rsity of 00:00:00 [facility] DTAP 2003-11-29 Completed [facility] of 00:00:00 [facility] HIB 4 Dose Schedule 2003-11-29 Completed Unive rsity of 00:00:00 [facility] DTAP 2003-11-29 Completed [facility] of 00:00:00 [facility] HIB 4 Dose Schedule 2003-11-29 Completed Unive rsity of 00:00:00 [facility] DTAP 2003-11-29 Completed [facility] 00:00:00 [facility] HIB 4 Dose Schedule 2003-11-29 Completed Unive rsity of 00:00:00 [facility] DTAP 2003-11-29 Completed [facility] 00:00:00 [facility] HIB 4 Dose Schedule 2003-11-29 Completed [facility] 00:00:00 [facility] DTAP 2003-11-29 Completed [facility] 00:00:00 [facility] HIB 4 Dose Schedule 2003-11-29 Completed [facility] 00:00:00 [facility] DTAP 2003-11-29 Completed [facility] 00:00:00 [facility] HIB 4 Dose Schedule 2003-11-29 Completed [facility] 00:00:00 [facility] DTAP 2003-11-29 Completed [facility] 00:00:00 [facility] HIB 4 Dose Schedule 2003-11-29 Completed [facility] 00:00:00 [facility] DTAP 2003-11-29 Completed [facility] 00:00:00 [facility] HIB 4 Dose Schedule 2003-11-29 Completed [facility] 00:00:00 [facility] DTAP 2003-11-29 Completed [facility] 00:00:00 [facility] HIB 4 Dose Schedule 2003-11-29 Completed [facility] 00:00:00 [facility] DTAP 2003-11-29 Completed [facility] 00:00:00 [facility] HIB 4 Dose Schedule 2003-11-29 Completed [facility] 00:00:00 [facility] DTAP 2003-11-29 Completed [facility] 00:00:00 [facility] HIB 4 Dose Schedule 2003-11-29 Completed [facility] 00:00:00 [facility] DTAP 2003-11-29 Completed [facility] 00:00:00 [facility] HIB 4 Dose Schedule 2003-11-29 Completed [facility] 00:00:00 [facility] DTAP 2003-11-29 Completed [facility] 00:00:00 [facility] HIB 4 Dose Schedule 2003-11-29 Completed [facility] 00:00:00 [facility] DTAP 2003-11-29 Completed [facility] 00:00:00 [facility] HIB 4 Dose Schedule 2003-11-29 Completed [facility] 00:00:00 [facility] DTAP 2003-11-29 Completed [facility] 00:00:00 [facility] HIB 4 Dose Schedule 2003-11-29 Completed [facility] 00:00:00 [facility] DTAP 2003-11-29 Completed [facility] 00:00:00 [facility] HIB 4 Dose Schedule 2003-11-29 Completed [facility] 00:00:00 [facility] DTAP 2003-11-29 Completed [facility] 00:00:00 [facility] HIB 4 Dose Schedule 2003-11-29 Completed [facility] 00:00:00 [facility] DTAP 2003-11-29 Completed [facility] 00:00:00 [facility] HIB 4 Dose Schedule 2003-11-29 Completed [facility] 00:00:00 [facility] DTAP 2003-11-29 Completed [facility] 00:00:00 [facility] HIB 4 Dose Schedule 2003-11-29 Completed [facility] 00:00:00 [facility] DTAP 2003-11-29 Completed [facility] 00:00:00 [facility] HIB 4 Dose Schedule 2003-11-29 Completed [facility] 00:00:00 [facility] DTAP 2003-11-29 Completed [facility] 00:00:00 [facility] HIB 4 Dose Schedule 2003-11-29 Completed [facility] 00:00:00 [facility] DTAP 2003-11-29 Completed [facility] 00:00:00 [facility] HIB 4 Dose Schedule 2003-11-29 Completed [facility] 00:00:00 [facility] DTAP 2003-11-29 Completed [facility] 00:00:00 [facility] HIB 4 Dose Schedule 2003-11-29 Completed [facility] 00:00:00 [facility] DTAP 2003-11-29 Completed [facility] 00:00:00 [facility] HIB 4 Dose Schedule 2003-11-29 Completed [facility] 00:00:00 [facility] DTAP 2003-11-29 Completed [facility] 00:00:00 [facility] HIB 4 Dose Schedule 2003-11-29 Completed [facility] 00:00:00 [facility] DTAP 2003-11-29 Completed [facility] 00:00:00 [facility] HIB 4 Dose Schedule 2003-11-29 Completed [facility] 00:00:00 [facility] DTAP 2003-11-29 Completed [facility] 00:00:00 [facility] HIB 4 Dose Schedule 2003-11-29 Completed [facility] 00:00:00 [facility] DTAP 2003-11-29 Completed [facility] 00:00:00 [facility] HIB 4 Dose Schedule 2003-11-29 Completed [facility] 00:00:00 [facility] DTAP 2003-11-29 Completed [facility] 00:00:00 [facility] HIB 4 Dose Schedule 2003-11-29 Completed [facility] 00:00:00 [facility] DTAP 2002 Completed [facility] 00:00:00 [facility] HIB 4 Dose Schedule 2002 Completed [facility] 00:00:00 [facility] MMR 2002 Completed [facility] 00:00:00 [facility] Varicella 2002 Completed [facility] (varivax)(chicken 00:00:00 [facility] DTAP 2002 Completed [facility] 00:00:00 [facility] HIB 4 Dose Schedule 2002 Completed [facility] 00:00:00 [facility] MMR 2002 Completed [facility] 00:00:00 [facility] Varicella 2002 Completed [facility] (varivax)(chicken 00:00:00 [facility] DTAP 2002 Completed [facility] 00:00:00 [facility] HIB 4 Dose Schedule 2002 Completed [facility] 00:00:00 [facility] MMR 2002 Completed [facility] 00:00:00 [facility] Varicella 2002 Completed [facility] (varivax)(ch[facility] 00:00:00 [facility] DTAP 2002 Completed [facility] 00:00:00 [facility] HIB 4 Dose Schedule 2002 Completed [facility] 00:00:00 [facility] MMR 2002 Completed [facility] 00:00:00 [facility] Varicella 2002 Completed [facility] (varivax)(chicken 00:00:00 [facility] DTAP 2002 Completed [facility] 00:00:00 [facility] HIB 4 Dose Schedule 2002 Completed [facility] 00:00:00 [facility] MMR 2002 Completed [facility] 00:00:00 [facility] Varicella 2002 Completed [facility] (varivax)([facility]icken 00:00:00 [facility] DTAP 2002 Completed [facility] 00:00:00 [facility] HIB 4 Dose Schedule 2002 Completed [facility] 00:00:00 [facility] MMR 2002 Completed [facility] 00:00:00 [facility] Varicella 2002 Completed [facility] (varivax)([facility]icken 00:00:00 [facility] DTAP 2002 Completed [facility] 00:00:00 [facility] HIB 4 Dose Schedule 2002 Completed [facility] 00:00:00 [facility] MMR 2002 Completed [facility] 00:00:00 [facility] Varicella 2002 Completed [facility] (varivax)([facility] 00[facility]00:00 [facility] DTAP 2002 Completed [facility] 00:00:00 [facility] HIB 4 Dose Schedule 2002 Completed [facility] 00:00:00 [facility] MMR 2002 Completed [facility] 00:00:00 [facility] Varicella 2002 Completed [facility] (varivax)([facility]icken 00:00:00 [facility] DTAP 2002 Completed [facility] 00:00:00 [facility] HIB 4 Dose Schedule 2002 Completed [facility] 00:00:00 [facility] MMR 2002 Completed [facility] 00:00:00 [facility] Varicella 2002 Completed [facility] (varivax)(chicken 00:00:00 [facility] DTAP 2002 Completed [facility] 00:00:00 [facility] HIB 4 Dose Schedule 2002 Completed [facility] 00:00:00 [facility] MMR 2002 Completed [facility] 00:00:00 [facility] Varicella 2002 Completed [facility] (varivax)([facility]icken 00:00:00 [facility] DTAP 2002 Completed [facility] 00:00:00 [facility] HIB 4 Dose Schedule 2002 Completed [facility] 00:00:00 [facility] MMR 2002 Completed [facility] 00:00:00 [facility] Varicella 2002 Completed [facility] (varivax)(chicken 00:00:00 [facility] DTAP 2002 Completed [facility] 00:00:00 [facility] HIB 4 Dose Schedule 2002 Completed [facility] 00:00:00 [facility] MMR 2002 Completed [facility] 00:00:00 [facility] Varicella 2002 Completed [facility] (varivax)([facility]icken 00:00:00 [facility] DTAP 2002 Completed [facility] 00:00:00 [facility] HIB 4 Dose Schedule 2002 Completed [facility] 00:00:00 [facility] MMR 2002 Completed [facility] 00:00:00 [facility] Varicella 2002 Completed [facility] (varivax)(chicken 00:00:00 [facility] DTAP 2002 Completed [facility] 00:00:00 [facility] HIB 4 Dose Schedule 2002 Completed [facility] 00:00:00 [facility] MMR 2002 Completed [facility] 00:00:00 [facility] Varicella 2002 Completed [facility] (varivax)(chicken 00:00:00 [facility] DTAP 2002 Completed [facility] 00:00:00 [facility] HIB 4 Dose Schedule 2002 Completed [facility] 00:00:00 [facility] MMR 2002 Completed [facility] 00:00:00 [facility] Varicella 2002 Completed [facility] (varivax)(chicken 00:00:00 [facility] DTAP 2002 Completed [facility] 00:00:00 [facility] HIB 4 Dose Schedule 2002 Completed [facility] 00:00:00 [facility] MMR 2002 Completed [facility] 00:00:00 [facility] Varicella 2002 Completed [facility] (varivax)(chicken 00:00:00 [facility] DTAP 2002 Completed [facility] 00:00:00 [facility] HIB 4 Dose Schedule 2002 Completed [facility] 00:00:00 [facility] MMR 2002 Completed [facility] 00:00:00 [facility] Varicella 2002 Completed [facility] (varivax)(chicken 00:00:00 [facility] DTAP 2002 Completed [facility] 00:00:00 [facility] HIB 4 Dose Schedule 2002 Completed [facility] 00:00:00 [facility] MMR 2002 Completed [facility] 00:00:00 [facility] Varicella 2002 Completed [facility] (varivax)(chicken 00:00:00 [facility] DTAP 2002 Completed [facility] 00:00:00 [facility] HIB 4 Dose Schedule 2002 Completed [facility] 00:00:00 [facility] MMR 2002 Completed [facility] 00:00:00 [facility] Varicella 2002 Completed [facility] (varivax)(chicken 00:00:00 [facility] DTAP 2002 Completed [facility] 00:00:00 [facility] HIB 4 Dose Schedule 2002 Completed [facility] 00:00:00 [facility] MMR 2002 Completed [facility] 00:00:00 [facility] Varicella 2002 Completed [facility] (varivax)(chicken 00:00:00 [facility] DTAP 2002 Completed [facility] 00:00:00 [facility] HIB 4 Dose Schedule 2002 Completed [facility] 00:00:00 [facility] MMR 2002 Completed [facility] 00:00:00 [facility] Varicella 2002 Completed [facility] (varivax)(chicken 00:00:00 [facility] DTAP 2002 Completed [facility] 00:00:00 [facility] HIB 4 Dose Schedule 2002 Completed [facility] 00:00:00 [facility] MMR 2002 Completed [facility] 00:00:00 [facility] Varicella 2002 Completed [facility] (varivax)([facility]icken 00:00:00 [facility] DTAP 2002 Completed [facility] 00:00:00 [facility] HIB 4 Dose Schedule 2002 Completed [facility] 00:00:00 [facility] MMR 2002 Completed [facility] 00:00:00 [facility] Varicella 2002 Completed [facility] (varivax)(chicken 00:00:00 [facility] DTAP 2002 Completed [facility] 00:00:00 [facility] HIB 4 Dose Schedule 2002 Completed [facility] 00:00:00 [facility] MMR 2002 Completed [facility] 00:00:00 [facility] Varicella 2002 Completed [facility] (varivax)(chicken 00:00:00 [facility] DTAP 2002 Completed [facility] 00:00:00 [facility] HIB 4 Dose Schedule 2002 Completed [facility] 00:00:00 [facility] MMR 2002 Completed [facility] 00:00:00 [facility] Varicella 2002 Completed [facility] (varivax[facility]icken 00:00:00 [place] [facility] DTAP 2002 Completed [facility] 00:00:00 [facility] HIB 4 Dose Schedule 2002 Completed [facility] 00:00:00 [facility] MMR 2002 Completed [facility] 00:00:00 [facility] Varicella 2002 Completed [facility] (varivax)(chicken 00:00:00 [facility] DTAP 2002 Completed [facility] 00:00:00 [facility] HIB 4 Dose Schedule 2002 Completed [facility] 00:00:00 [facility] MMR 2002 Completed [facility] 00:00:00 [facility] Varicella 2002 Completed [facility] (varivax)(chicken 00:00:00 [facility] DTAP 2002 Completed [facility] 00:00:00 [facility] HIB 4 Dose Schedule 2002 Completed [facility] 00:00:00 [facility] MMR 2002 Completed [facility] 00:00:00 [facility] Varicella 2002 Completed [facility] (varivax)([facility]icken 00:00:00 [facility] DTAP 2002 Completed [facility] 00:00:00 [facility] HIB 4 Dose Schedule 2002 Completed [facility] 00:00:00 [facility] MMR 2002 Completed [facility] 00:00:00 [facility] Varicella 2002 Completed [facility] (varivax)(chicken 00:00:00 [facility] DTAP 2002 Completed [facility] 00:00:00 [facility] HIB 4 Dose Schedule 2002 Completed [facility] 00:00:00 [facility] MMR 2002 Completed [facility] 00:00:00 [facility] Varicella 2002 Completed [facility] (varivax)(chicken 00:00:00 [facility] DTAP 2002 Completed [facility] 00:00:00 [facility] HIB 4 Dose Schedule 2002 Completed [facility] 00:00:00 [facility] MMR 2002 Completed [facility] 00:00:00 [facility] Varicella 2002 Completed [facility] (varivax)(chicken 00:00:00 [facility] DTAP 2002 Completed [facility] 00:00:00 [facility] HIB 4 Dose Schedule 2002 Completed [facility] 00:00:00 [facility] MMR 2002 Completed [facility] 00:00:00 [facility] Varicella 2002 Completed [facility] (varivax)(chicken 00:00:00 [facility] DTAP 2002 Completed [facility] 00:00:00 [facility] HIB 4 Dose Schedule 2002 Completed [facility] 00:00:00 [facility] MMR 2002 Completed [facility] 00:00:00 [facility] Varicella 2002 Completed [facility] (varivax)(chicken 00:00:00 [facility] IPV 2002 Completed [facility] 00:00:00 [facility] DTAP 2002 Completed [facility] 00:00:00 [facility] HIB 4 Dose Schedule 2002 Completed [facility] 00:00:00 [facility] MMR 2002 Completed [facility] 00:00:00 [facility] Varicella 2002 Completed [facility] (varivax)(chicken 00:00:00 [facility] IPV 2002 Completed [facility] 00:00:00 [facility] DTAP 2002 Completed [facility] 00:00:00 [facility] HIB 4 Dose Schedule 2002 Completed [facility] 00:00:00 [facility] MMR 2002 Completed [facility] 00:00:00 [facility] Varicella 2002 Completed [facility] (varivax)([facility]icken 00[facility]00:00 [place] [facility] IPV 2002 Completed [facility] 00[facility]00:00 [facility] DTAP 2002 Completed [facility] 00:00:00 [facility] HIB 4 Dose Schedule 2002 Completed [facility] 00:00:00 [facility] MMR 2002 Completed [facility] 00:00:00 [facility] Varicella 2002 Completed [facility] (varivax)(chicken 00:00:00 [place] [facility] IPV 2002 Completed [facility] 00:00:00 [facility] DTAP 2001 Completed [facility] 00:00:00 [facility] HIB 4 Dose Schedule 2001 Completed [facility] 00:00:00 [facility] Hep B, Adol or Pedi 2001 Completed [facility] Dosage 00:00:00 [facility] Polio (IPV/OPV) 2001 Completed [facility] 00:00:00 [facility] DTAP 2001 Completed [facility] 00:00:00 [facility] HIB 4 Dose Schedule 2001 Completed [facility] 00:00:00 [facility] Hep B, Adol or Pedi 2001 Completed [facility] Dosage 00:00:00 [facility] Polio (IPV/OPV) 2001 Completed [facility] 00:00:00 [facility] DTAP 2001 Completed [facility] 00:00:00 [facility] HIB 4 Dose Schedule 2001 Completed [facility] 00:00:00 [facility] Hep B, Adol or Pedi 2001 Completed [facility] Dosage 00:00:00 [facility] Polio (IPV/OPV) 2001 Completed [facility] 00:00:00 [facility] DTAP 2001 Completed [facility] 00:00:00 [facility] HIB 4 Dose Schedule 2001 Completed [facility] 00:00:00 [facility] Hep B, Adol or Pedi 2001 Completed [facility] Dosage 00:00:00 [facility] Polio (IPV/OPV) 2001 Completed [facility] 00:00:00 [facility] DTAP 2001 Completed [facility] 00:00:00 [facility] HIB 4 Dose Schedule 2001 Completed [facility] 00:00:00 [facility] Hep B, Adol or Pedi 2001 Completed [facility] Dosage 00:00:00 [facility] Polio (IPV/OPV) 2001 Completed [facility] 00:00:00 [facility] DTAP 2001 Completed [facility] 00:00:00 [facility] HIB 4 Dose Schedule 2001 Completed [facility] 00:00:00 [facility] Hep B, Adol or Pedi 2001 Completed [facility] Dosage 00:00:00 [facility] Polio (IPV/OPV) 2001 Completed [facility] 00:00:00 [facility] DTAP 2001 Completed [facility] 00:00:00 [facility] HIB 4 Dose Schedule 2001 Completed [facility] 00:00:00 [facility] Hep B, Adol or Pedi 2001 Completed [facility] Dosage 00:00:00 [facility] Polio (IPV/OPV) 2001 Completed [facility] 00:00:00 [facility] DTAP 2001 Completed [facility] 00:00:00 [facility] HIB 4 Dose Schedule 2001 Completed [facility] 00:00:00 [facility] Hep B, Adol or Pedi 2001 Completed [facility] Dosage 00:00:00 [facility] Polio (IPV/OPV) 2001 Completed [facility] 00:00:00 [facility] DTAP 2001 Completed [facility] 00:00:00 [facility] HIB 4 Dose Schedule 2001 Completed [facility] 00:00:00 [facility] Hep B, Adol or Pedi 2001 Completed [facility] Dosage 00:00:00 [facility] Polio (IPV/OPV) 2001 Completed [facility] 00:00:00 [facility] DTAP 2001 Completed [facility] 00:00:00 [facility] HIB 4 Dose Schedule 2001 Completed [facility] 00:00:00 [facility] Hep B, Adol or Pedi 2001 Completed [facility] Dosage 00:00:00 [facility] Polio (IPV/OPV) 2001 Completed [facility] 00:00:00 [facility] DTAP 2001 Completed [facility] 00:00:00 [facility] HIB 4 Dose Schedule 2001 Completed [facility] 00:00:00 [facility] Hep B, Adol or Pedi 2001 Completed [facility] Dosage 00:00:00 [facility] Polio (IPV/OPV) 2001 Completed [facility] 00:00:00 [facility] DTAP 2001 Completed [facility] 00:00:00 [facility] HIB 4 Dose Schedule 2001 Completed [facility] 00:00:00 [facility] Hep B, Adol or Pedi 2001 Completed [facility] Dosage 00:00:00 [facility] Polio (IPV/OPV) 2001 Completed [facility] 00:00:00 [facility] DTAP 2001 Completed [facility] 00:00:00 [facility] HIB 4 Dose Schedule 2001 Completed [facility] 00:00:00 [facility] Hep B, Adol or Pedi 2001 Completed [facility] Dosage 00:00:00 [facility] Polio (IPV/OPV) 2001 Completed [facility] 00:00:00 [facility] DTAP 2001 Completed [facility] 00:00:00 [facility] HIB 4 Dose Schedule 2001 Completed [facility] 00:00:00 [facility] Hep B, Adol or Pedi 2001 Completed [facility] Dosage 00:00:00 [facility] Polio (IPV/OPV) 2001 Completed [facility] 00:00:00 [facility] DTAP 2001 Completed [facility] 00:00:00 [facility] HIB 4 Dose Schedule 2001 Completed [facility] 00:00:00 [facility] Hep B, Adol or Pedi 2001 Completed [facility] Dosage 00:00:00 [facility] Polio (IPV/OPV) 2001 Completed [facility] 00:00:00 [facility] DTAP 2001 Completed [facility] 00:00:00 [facility] HIB 4 Dose Schedule 2001 Completed [facility] 00:00:00 [facility] Hep B, Adol or Pedi 2001 Completed [facility] Dosage 00:00:00 [facility] Polio (IPV/OPV) 2001 Completed [facility] 00:00:00 [facility] DTAP 2001 Completed [facility] 00:00:00 [facility] HIB 4 Dose Schedule 2001 Completed [facility] 00:00:00 [facility] Hep B, Adol or Pedi 2001 Completed [facility] Dosage 00:00:00 [facility] Polio (IPV/OPV) 2001 Completed [facility] 00:00:00 [facility] DTAP 2001 Completed [facility] 00:00:00 [facility] HIB 4 Dose Schedule 2001 Completed [facility] 00:00:00 [facility] Hep B, Adol or Pedi 2001 Completed [facility] Dosage 00:00:00 [facility] Polio (IPV/OPV) 2001 Completed [facility] 00:00:00 [facility] DTAP 2001 Completed [facility] 00:00:00 [facility] HIB 4 Dose Schedule 2001 Completed [facility] 00:00:00 [facility] Hep B, Adol or Pedi 2001 Completed [facility] Dosage 00:00:00 [facility] Polio (IPV/OPV) 2001 Completed [facility] 00:00:00 [facility] DTAP 2001 Completed [facility] 00:00:00 [facility] HIB 4 Dose Schedule 2001 Completed [facility] 00:00:00 [facility] Hep B, Adol or Pedi 2001 Completed [facility] Dosage 00:00:00 [facility] Polio (IPV/OPV) 2001 Completed [facility] 00[facility]00:00 [facility] DTAP 2001 Completed [facility] 00:00:00 [facility] HIB 4 Dose Schedule 2001 Completed [facility] 00:00:00 [facility] Hep B, Adol or Pedi 2001 Completed [facility] Dosage 00:00:00 [facility] Polio (IPV/OPV) 2001 Completed [facility] 00:00:00 [facility] DTAP 2001 Completed [facility] 00:00:00 [facility] HIB 4 Dose Schedule 2001 Completed [facility] 00:00:00 [facility] Hep B, Adol or Pedi 2001 Completed [facility] Dosage 00:00:00 [facility] Polio (IPV/OPV) 2001 Completed [facility] [facility] DTAP 2001 Completed [facility] 00:00:00 [facility] HIB 4 Dose Schedule 2001 Completed [facility] 00:00:00 [facility] Hep B, Adol or Pedi 2001 Completed [facility] of Dosage 00:00:00 [facility] Polio (IPV/OPV) 2001 Completed [facility] 00:00:00 [facility] DTAP 2001 Completed [facility] 00:00:00 [facility] HIB 4 Dose Schedule 2001 Completed [facility] 00:00:00 [facility] Hep B, Adol or Pedi 2001 Completed [facility] of Dosage 00:00:00 [facility] Polio (IPV/OPV) 2001 Completed [facility] 00:00:00 [facility] DTAP 2001 Completed [facility] 00:00:00 [facility] HIB 4 Dose Schedule 2001 Completed [facility] 00:00:00 [facility] Hep B, Adol or Pedi 2001 Completed [facility] of Dosage 00:00:00 [facility] Polio (IPV/OPV) 2001 Completed [facility] 00:00:00 [facility] DTAP 2001 Completed [facility] 00:00:00 [facility] HIB 4 Dose Schedule 2001 Completed [facility] 00:00:00 [facility] Hep B, Adol or Pedi 2001 Completed [facility] of Dosage 00:00:00 [facility] Polio (IPV/OPV) 2001 Completed [facility] 00:00:00 [facility] DTAP 2001 Completed [facility] 00:00:00 [facility] HIB 4 Dose Schedule 2001 Completed [facility] 00:00:00 [facility] Hep B, Adol or Pedi 2001 Completed [facility] of Dosage 00:00:00 [facility] Polio (IPV/OPV) 2001 Completed [facility] 00:00:00 [facility] DTAP 2001 Completed [facility] 00:00:00 [facility] HIB 4 Dose Schedule 2001 Completed [facility] 00:00:00 [facility] Hep B, Adol or Pedi 2001 Completed [facility] of Dosage 00:00:00 [facility] Polio (IPV/OPV) 2001 Completed [facility] 00:00:00 [facility] DTAP 2001 Completed [facility] 00:00:00 [facility] HIB 4 Dose Schedule 2001 Completed [facility] 00:00:00 [facility] Hep B, Adol or Pedi 2001 Completed [facility] of Dosage 00:00:00 [facility] Polio (IPV/OPV) 2001 Completed [facility] 00:00:00 [facility] DTAP 2001 Completed [facility] 00:00:00 [facility] HIB 4 Dose Schedule 2001 Completed [facility] 00:00:00 [facility] Hep B, Adol or Pedi 2001 Completed [facility] Dosage 00:00:00 [facility] Polio (IPV/OPV) 2001 Completed [facility] 00:00:00 [facility] DTAP 2001 Completed [facility] 00:00:00 [facility] HIB 4 Dose Schedule 2001 Completed [facility] 00:00:00 [facility] Hep B, Adol or Pedi 2001 Completed [facility] of Dosage 00:00:00 [facility] Polio (IPV/OPV) 2001 Completed [facility] 00:00:00 [facility] DTAP 2001 Completed [facility] 00:00:00 [facility] HIB 4 Dose Schedule 2001 Completed [facility] 00:00:00 [facility] Hep B, Adol or Pedi 2001 Completed [facility] of Dosage 00:00:00 [facility] Polio (IPV/OPV) 2001 Completed [facility] 00:00:00 [facility] DTAP 2001 Completed [facility] 00:00:00 [facility] HIB 4 Dose Schedule 2001 Completed [facility] 00:00:00 [facility] Hep B, Adol or Pedi 2001 Completed [facility] of Dosage 00:00:00 [facility] Polio (IPV/OPV) 2001 Completed [facility] 00:00:00 [facility] IPV 2001 Completed [facility] 00:00:00 [facility] DTAP 2001 Completed [facility] 00:00:00 [facility] HIB 4 Dose Schedule 2001 Completed [facility] 00:00:00 [facility] Hep B, Adol or Pedi 2001 Completed [facility] Dosage 00:00:00 [facility] Polio (IPV/OPV) 2001 Completed [facility] 00:00:00 [facility] IPV 2001 Completed [facility] 00:00:00 [facility] DTAP 2001 Completed [facility] 00:00:00 [facility] HIB 4 Dose Schedule 2001 Completed [facility] 00[facility]00:00 [facility] Hep B, Adol or Pedi 2001 Completed [facility] of Dosage 00:00:00 [facility] Polio (IPV/OPV) 2001 Completed [facility] 00:00:00 [facility] IPV 2001 Completed [facility] 00:00:00 [facility] DTAP 2001 Completed [facility] 00:00:00 [facility] HIB 4 Dose Schedule 2001 Completed [facility] 00:00:00 [facility] Hep B, Adol or Pedi 2001 Completed [facility] Dosage 00:00:00 [facility] Polio (IPV/OPV) 2001 Completed [facility] 00:00:00 [facility] IPV 2001 Completed [facility] 00:00:00 [facility] DTAP 2001 Completed [facility] 00:00:00 [facility] HIB 4 Dose Schedule 2001 Completed [facility] 00:00:00 [facility] Polio (IPV/OPV) 2001 Completed [facility] 00:00:00 [facility] DTAP 2001 Completed [facility] 00:00:00 [facility] HIB 4 Dose Schedule 2001 Completed [facility] 00:00:00 [facility] Polio (IPV/OPV) 2001 Completed [facility] 00:00:00 [facility] DTAP 2001 Completed [facility] 00:00:00 [facility] HIB 4 Dose Schedule 2001 Completed [facility] 00:00:00 [facility] Polio (IPV/OPV) 2001 Completed [facility] 00:00:00 [facility] DTAP 2001 Completed [facility] 00:00:00 [facility] HIB 4 Dose Schedule 2001 Completed [facility] 00:00:00 [facility] Polio (IPV/OPV) 2001 Completed [facility] 00:00:00 [facility] DTAP 2001 Completed [facility] 00:00:00 [facility] HIB 4 Dose Schedule 2001 Completed [facility] 00:00:00 [facility] Polio (IPV/OPV) 2001 Completed [facility] 00:00:00 [facility] DTAP 2001 Completed [facility] 00:00:00 [facility] HIB 4 Dose Schedule 2001 Completed [facility] 00:00:00 [facility] Polio (IPV/OPV) 2001 Completed [facility] 00:00:00 [facility] DTAP 2001 Completed [facility] 00:00:00 [facility] HIB 4 Dose Schedule 2001 Completed [facility] 00:00:00 [facility] Polio (IPV/OPV) 2001 Completed [facility] 00:00:00 [facility] DTAP 2001 Completed [facility] 00:00:00 [facility] HIB 4 Dose Schedule 2001 Completed [facility] 00:00:00 [facility] Polio (IPV/OPV) 2001 Completed [facility] 00:00:00 [facility] DTAP 2001 Completed [facility] 00:00:00 [facility] HIB 4 Dose Schedule 2001 Completed [facility] 00:00:00 [facility] Polio (IPV/OPV) 2001 Completed [facility] 00:00:00 [facility] DTAP 2001 Completed [facility] 00:00:00 [facility] HIB 4 Dose Schedule 2001 Completed [facility] 00:00:00 [facility] Polio (IPV/OPV) 2001 Completed [facility] 00:00:00 [facility] DTAP 2001 Completed [facility] 00:00:00 [facility] HIB 4 Dose Schedule 2001 Completed [facility] 00:00:00 [facility] Polio (IPV/OPV) 2001 Completed [facility] 00:00:00 [facility] DTAP 2001 Completed [facility] 00:00:00 [facility] HIB 4 Dose Schedule 2001 Completed [facility] 00:00:00 [facility] Polio (IPV/OPV) 2001 Completed [facility] 00:00:00 [facility] DTAP 2001 Completed [facility] 00:00:00 [facility] HIB 4 Dose Schedule 2001 Completed [facility] 00:00:00 [facility] Polio (IPV/OPV) 2001 Completed [facility] 00:00:00 [facility] DTAP 2001 Completed [facility] 00:00:00 [facility] HIB 4 Dose Schedule 2001 Completed [facility] 00:00:00 [facility] Polio (IPV/OPV) 2001 Completed [facility] 00:00:00 [facility] DTAP 2001 Completed [facility] 00:00:00 [facility] HIB 4 Dose Schedule 2001 Completed [facility] 00:00:00 [facility] Polio (IPV/OPV) 2001 Completed [facility] 00:00:00 [facility] DTAP 2001 Completed [facility] 00:00:00 [facility] HIB 4 Dose Schedule 2001 Completed [facility] 00:00:00 [facility] Polio (IPV/OPV) 2001 Completed [facility] 00:00:00 [facility] DTAP 2001 Completed [facility] 00:00:00 [facility] HIB 4 Dose Schedule 2001 Completed [facility] 00:00:00 [facility] Polio (IPV/OPV) 2001 Completed [facility] 00:00:00 [facility] DTAP 2001 Completed [facility] 00:00:00 [facility] HIB 4 Dose Schedule 2001 Completed [facility] 00:00:00 [facility] Polio (IPV/OPV) 2001 Completed [facility] 00:00:00 [facility] DTAP 2001 Completed [facility] 00:00:00 [facility] HIB 4 Dose Schedule 2001 Completed [facility] 00:00:00 [facility] Polio (IPV/OPV) 2001 Completed [facility] 00:00:00 [facility] DTAP 2001 Completed [facility] 00:00:00 [facility] HIB 4 Dose Schedule 2001 Completed [facility] 00:00:00 [facility] Polio (IPV/OPV) 2001 Completed [facility] 00:00:00 [facility] DTAP 2001 Completed [facility] 00:00:00 [facility] HIB 4 Dose Schedule 2001 Completed [facility] 00:00:00 [facility] Polio (IPV/OPV) 2001 Completed [facility] 00:00:00 [facility] DTAP 2001 Completed [facility] 00:00:00 [facility] HIB 4 Dose Schedule 2001 Completed [facility] 00:00:00 [facility] Polio (IPV/OPV) 2001 Completed [facility] 00:00:00 [facility] DTAP 2001 Completed [facility] 00:00:00 [facility] HIB 4 Dose Schedule 2001 Completed [facility] 00:00:00 [facility] Polio (IPV/OPV) 2001 Completed [facility] 00:00:00 [facility] DTAP 2001 Completed [facility] 00:00:00 [facility] HIB 4 Dose Schedule 2001 Completed [facility] 00:00:00 [facility] Polio (IPV/OPV) 2001 Completed [facility] 00:00:00 [facility] DTAP 2001 Completed [facility] 00:00:00 [facility] HIB 4 Dose Schedule 2001 Completed [facility] 00:00:00 [facility] Polio (IPV/OPV) 2001 Completed [facility] 00:00:00 [facility] DTAP 2001 Completed [facility] 00:00:00 [facility] HIB 4 Dose Schedule 2001 Completed [facility] 00:00:00 [facility] Polio (IPV/OPV) 2001 Completed [facility] 00:00:00 [facility] DTAP 2001 Completed [facility] 00:00:00 [facility] HIB 4 Dose Schedule 2001 Completed [facility] 00:00:00 [facility] Polio (IPV/OPV) 2001 Completed [facility] 00:00:00 [facility] DTAP 2001 Completed [facility] 00:00:00 [facility] HIB 4 Dose Schedule 2001 Completed [facility] 00:00:00 [facility] Polio (IPV/OPV) 2001 Completed [facility] 00:00:00 [facility] DTAP 2001 Completed [facility] 00:00:00 [facility] HIB 4 Dose Schedule 2001 Completed [facility] 00:00:00 [facility] Polio (IPV/OPV) 2001 Completed [facility] 00:00:00 [facility] DTAP 2001 Completed [facility] 00:00:00 [facility] HIB 4 Dose Schedule 2001 Completed [facility] 00:00:00 [facility] Polio (IPV/OPV) 2001 Completed [facility] 00:00:00 [facility] DTAP 2001 Completed [facility] 00:00:00 [facility] HIB 4 Dose Schedule 2001 Completed [facility] 00:00:00 [facility] Polio (IPV/OPV) 2001 Completed [facility] 00:00:00 [facility] DTAP 2001 Completed [facility] 00:00:00 [facility] HIB 4 Dose Schedule 2001 Completed [facility] 00:00:00 [facility] Polio (IPV/OPV) 2001 Completed [facility] 00:00:00 [facility] DTAP 2001 Completed [facility] 00:00:00 [facility] HIB 4 Dose Schedule 2001 Completed [facility] 00:00:00 [facility] Polio (IPV/OPV) 2001 Completed [facility] 00:00:00 [facility] IPV 2001 Completed [facility] 00:00:00 [facility] DTAP 2001 Completed [facility] 00:00:00 [facility] HIB 4 Dose Schedule 2001 Completed [facility] 00:00:00 [facility] Polio (IPV/OPV) 2001 Completed [facility] 00:00:00 [facility] IPV 2001 Completed [facility] 00:00:00 [facility] DTAP 2001 Completed [facility] 00:00:00 [facility] HIB 4 Dose Schedule 2001 Completed [facility] 00:00:00 [facility] Polio (IPV/OPV) 2001 Completed [facility] 00:00:00 [facility] IPV 2001 Completed [facility] 00:00:00 [facility] DTAP 2001 Completed [facility] 00:00:00 [facility] HIB 4 Dose Schedule 2001 Completed [facility] 00:00:00 [facility] Polio (IPV/OPV) 2001 Completed [facility] 00:00:00 [facility] IPV 2001 Completed [facility] 00:00:00 [facility] Hep B, Adol or Pedi 2001 Completed [facility] of Dosage 00:00:00 [facility] Hep B, Adol or Pedi 2001 Completed [facility] of Dosage 00:00:00 [facility] Hep B, Adol or Pedi 2001 Completed [facility] of Dosage 00:00:00 [facility] Hep B, Adol or Pedi 2001 Completed [facility] of Dosage 00:00:00 [facility] Hep B, Adol or Pedi 2001 Completed [facility] of Dosage 00:00:00 [facility] Hep B, Adol or Pedi 2001 Completed [facility] of Dosage 00:00:00 [facility] Hep B, Adol or Pedi [...] 2001 Completed [facility] Dosage 00:00:00 [facility] Polio (IPV/OPV) 2001 Completed [facility] 00:00:00 [facility] Polio (IPV/OPV) 2001 Completed [facility] 00:00:00 [facility] Polio (IPV/OPV) 2001 Completed [facility] 00:00:00 [facility] Polio (IPV/OPV) 2001 Completed [facility] 00:00:00 [facility] Polio (IPV/OPV) 2001 Completed [facility] 00:00:00 [facility] Polio (IPV/OPV) 2001 Completed [facility] 00:00:00 [facility] Polio (IPV/OPV) 2001 Completed [facility] 00:00:00 [facility] Polio (IPV/OPV) 2001 Completed [facility] 00:00:00 [facility] Polio (IPV/OPV) 2001 Completed [facility] 00:00:00 [facility] Polio (IPV/OPV) 2001 Completed [facility] 00:00:00 [facility] Polio (IPV/OPV) 2001 Completed [facility] 00:00:00 [facility] Polio (IPV/OPV) 2001 Completed [facility] 00:00:00 [facility] Polio (IPV/OPV) 2001 Completed Universit [...] (IPV/OPV) 2001 Completed [facility] 00:00:00 [facility] Polio (IPV/OPV) 2001 Completed [facility] 00:00:00 [facility] Polio (IPV/OPV) 2001 Completed [facility] 00:00:00 [facility] Polio (IPV/OPV) 2001 Completed [facility] 00:00:00 [facility] Polio (IPV/OPV) 2001 Completed [facility] 00:00:00 [facility] Vital Signs Vital Name Observation Time Observation Value Comments Source Systolic blood 2022-09-08 18:12:00 123 mm[Hg] [facility] pressure [facility] Diastolic blood 2022-09-08 18:12:00 75 mm[Hg] [facility] of pressure [facility] Heart rate 2022-09-08 18:12:00 102 /min [facility] Body temperature 2022-09-08 18:12:00 36.83 Stacy [facility] Respiratory rate 2022-09-08 18:12:00 18 /min [facility] Body height 2022-09-08 18:12:00 162.6 cm [facility] Body weight 2022-09-08 18:12:00 68.992 kg [facility] BMI 2022-09-08 18:12:00 26.11 kg/m2 [facility] Systolic blood 2022-09-02 15:27:00 118 mm[Hg] [facility] of pressure [facility] Diastolic blood 2022-09-02 15:27:00 74 mm[Hg] [facility] of pressure [facility] Heart rate 2022-09-02 15:27:00 77 /min [facility] Body temperature 2022-09-02 15:27:00 36.67 [facility] Respiratory rate 2022-09-02 15:27:00 16 /min [facility] Body height 2022-09-02 15:27:00 162.6 cm [facility] Body weight 2022-09-02 15:27:00 68.085 kg [facility] BMI 2022-09-02 15:27:00 25.76 kg/m2 [facility] Oxygen saturation in 2022-09-02 15:27:00 96 /min [facility] of Arterial blood by [facility] [place] [place] Pulse oximetry Branch Systolic blood 2022-06-10 16:00:00 116 mm[Hg] Univer [facility]ity of pressure [facility] Diastolic blood 2022-06-10 16:00:00 78 mm[Hg] [facility] of pressure [facility] Heart rate 2022-06-10 16:00:00 89 /min [facility] Body temperature 2022-06-10 16:00:00 36.83 Stacy [facility] Respiratory rate 2022-06-10 16:00:00 16 /min [facility] Body height 2022-06-10 16:00:00 162.6 cm [facility] Body weight 2022-06-10 16:00:00 68.357 kg [facility] BMI 2022-06-10 16:00:00 25.87 kg/m2 [facility] Oxygen saturation in 2022-06-10 16:00:00 97 /min [facility] Arterial blood by [facility] [place] [place] P[facility] Systolic blood 2022-05-12 16:26:00 119 mm[Hg] [facility]iver [facility] of pressure [facility] Diastolic blood 2022-05-12 16:26:00 67 mm[Hg] [facility] pressure [facility] Heart rate 2022-05-12 16:26:00 116 /min [facility] Body temperature 2022-05-12 16:26:00 36.78 Stacy [facility] Respiratory rate 2022-05-12 16:26:00 18 /min [facility] Body height 2022-05-12 16:26:00 162.6 cm [facility] Body weight 2022-05-12 16:26:00 69.4 kg [facility] BMI 2022-05-12 16:26:00 26.26 kg/m2 [facility] Body weight 2022-03-18 16:58:00 69.4 kg [facility] Systolic blood 2021-12-17 18:07:00 114 mm[Hg] [facility] pressure [facility] Diastolic blood 2021-12-17 18:07:00 75 mm[Hg] [facility] pressure [facility] Heart rate 2021-12-17 18:07:00 81 /min [facility] Body temperature 2021-12-17 18:07:00 37 St[facility] Respiratory rate 2021-12-17 18:07:00 16 /min [facility] Body height 2021-12-17 18:07:00 162.6 cm [facility] Body weight 2021-12-17 18:07:00 68.856 kg [facility] BMI 2021-12-17 18:07:00 26.06 kg/m2 [facility] Oxygen saturation in 2021-12-17 18:07:00 98 /min [facility] of Arterial blood by [facility] [place] [place] Pulse oxim[facility] Systolic blood 2021-11-19 18:03:00 121 mm[Hg] [facility] pressure [facility] Diastolic blood 2021-11-19 18:03:00 78 mm[Hg] [facility] pressure [facility] Heart rate 2021-11-19 18:03:00 88 /min [facility] Body temperature 2021-11-19 18:03:00 37.11 St[facility] Respiratory rate 2021-11-19 18:03:00 18 /min [facility] Body height 2021-11-19 18:03:00 162.6 cm [facility] Body weight 2021-11-19 18:03:00 73.256 kg [facility] BMI 2021-11-19 18:03:00 27.72 kg/m2 [facility] Systolic blood 2021-11-09 12:12:00 124 mm[Hg] [facility] pressure [facility] Diastolic blood 2021-11-09 12:12:00 67 mm[Hg] [facility] pressure [facility] Heart rate 2021-11-09 12:12:00 70 /min [facility] Body temperature 2021-11-09 12:12:00 36.67 Stacy [facility] Respiratory rate 2021-11-09 12:12:00 18 /min [facility] Oxygen saturation in 2021-11-09 12:12:00 100 /min [facility] Arterial blood by [facility] [place] [place] Pulse [facility] Body weight 2021-11-06 16:25:00 81.375 kg [facility] BMI 2021-11-06 16:25:00 30.79 kg/m2 [facility] Systolic blood 2021-11-07 15:01:00 127 mm[Hg] [facility] pressure [facility] Diastolic blood 2021-11-07 15:01:00 74 mm[Hg] [facility] pressure [facility] Heart rate 2021-11-07 15:00:00 65 /min [facility] Oxygen saturation in 2021-11-07 15:00:00 99 /min [facility] Arterial blood by [facility] [place] [place] P[facility] Body temperature 2021-11-07 14:01:00 36.56 Stacy [facility] Respiratory rate 2021-11-07 13:33:00 18 /min [facility] Body weight 2021-11-06 16:25:00 81.375 kg [facility] BMI 2021-11-06 16:25:00 30.79 kg/m2 [facility] Systolic blood 2021-11-05 20:07:00 122 mm[Hg] [facility] pressure [facility] Diastolic blood 2021-11-05 20:07:00 72 mm[Hg] [facility] pressure [facility] Heart rate 2021-11-05 20:07:00 96 /min [facility] Body temperature 2021-11-05 20:07:00 37.06 Stacy [facility] Respiratory rate 2021-11-05 20:07:00 18 /min [facility] Body height 2021-11-05 20:07:00 162.6 cm [facility] Body weight 2021-11-05 20:07:00 82.872 kg [facility] BMI 2021-11-05 20:07:00 31.36 kg/m2 [facility] Systolic blood 2021-11-05 07:30:00 127 mm[Hg] [facility] pressure [facility] Diastolic blood 2021-11-05 07:30:00 72 mm[Hg] [facility] pressure [facility] Heart rate 2021-11-05 07:30:00 90 /min [facility] Oxygen saturation in 2021-11-05 07:30:00 99 /min [facility] by [facility] Respiratory rate 2021-11-05 07:28:00 18 /min [facility] Body weight 2021-11-05 07:28:00 82.555 kg [facility] Systolic blood 2021-10-28 18:16:00 114 mm[Hg] [facility] pressure [facility] Diastolic blood 2021-10-28 18:16:00 72 mm[Hg] [facility] pressure [facility] Heart rate 2021-10-28 18:16:00 101 /min [facility] Body temperature 2021-10-28 18:16:00 37.11 Stacy [facility] Respiratory rate 2021-10-28 18:16:00 18 /min [facility] Branch Body height 2021-10-28 18:16:00 162.6 cm [facility] Body weight 2021-10-28 18:16:00 81.194 kg [facility] BMI 2021-10-28 18:16:00 30.73 kg/m2 [facility] Heart rate 2021-10-26 23:00:00 100 /min [facility] Oxygen saturation in 2021-10-26 23:00:00 99 /min [facility] Arterial blood by [place] Advestigo zofia Pulse oximetry Branch Systolic blood 2021-10-26 22:30:00 124 mm[Hg] [facility] [place] [facility] Diastolic blood 2021-10-26 22:30:00 67 mm[Hg] [facility] [place] [facility] Body temperature 2021-10-26 22:30:00 37 Stacy [facility] [place] [facility] Respiratory rate 2021-10-26 22:30:00 18 /min [facility] Body height 2021-10-26 22:30:00 162.6 cm [facility] Body weight 2021-10-26 22:30:00 81.194 kg [facility] BMI 2021-10-26 22:30:00 30.71 kg/m2 [facility] Systolic blood 2021-10-15 16:11:00 108 mm[Hg] [facility] [place] [facility] Diastolic blood 2021-10-15 16:11:00 70 mm[Hg] [facility] [place] [facility] Heart rate 2021-10-15 16:11:00 91 /min [facility] Body temperature 2021-10-15 16:11:00 36.89 Stacy [facility] [place] [facility] Respiratory rate 2021-10-15 16:11:00 18 /min [facility] Body height 2021-10-15 16:11:00 162.6 cm [facility] Body weight 2021-10-15 16:11:00 80.559 kg [facility] BMI 2021-10-15 16:11:00 30.48 kg/m2 [facility] Systolic blood 2021-09-23 13:27:00 103 mm[Hg] [facility] [place] [facility] Diastolic blood 2021-09-23 13:27:00 66 mm[Hg] [facility] [place] [facility] Heart rate 2021-09-23 13:27:00 85 /min [facility] Body temperature 2021-09-23 13:27:00 36.89 Stacy [facility] [place] [facility] Respiratory rate 2021-09-23 13:27:00 18 /min [facility] Body height 2021-09-23 13:27:00 162.6 cm [facility] Body weight 2021-09-23 13:27:00 78.472 kg [facility] BMI 2021-09-23 13:27:00 29.70 kg/m2 [facility] Systolic blood 2021-09-09 19:18:00 115 mm[Hg] [facility] [place] [facility] Diastolic blood 2021-09-09 19:18:00 75 mm[Hg] Unive rsity of pressure [facility] Heart rate 2021-09-09 19:18:00 89 /min [facility] [place] [facility] [place] Body temperature 2021-09-09 19:18:00 36.78 Stacy Univ [facility] Respiratory rate 2021-09-09 19:18:00 18 /min Univ ersity of [facility] Body height 2021-09-09 19:18:00 162.6 cm [facility] [place] [facility] [place] Body weight 2021-09-09 19:18:00 77.565 kg [facility] BMI 2021-09-09 19:18:00 29.35 kg/m2 [facility] Systolic blood 2021-08-28 15:45:00 125 mm[Hg] Univer sity of [facility] Diastolic blood 2021-08-28 15:45:00 77 mm[Hg] Unive rsity of pressure [facility] Heart rate 2021-08-28 15:45:00 77 /min [facility] Body temperature 2021-08-28 15:45:00 36.33 Stacy Univ ersity of [facility] Respiratory rate 2021-08-28 15:45:00 16 /min [facility] [place] [facility] [place] Body height 2021-08-28 15:45:00 162.6 cm [facility] Body weight 2021-08-28 15:45:00 76.289 kg [facility] BMI 2021-08-28 15:45:00 28.87 kg/m2 [facility] Oxygen saturation in 2021-08-28 15:45:00 100 /min [facility] Arterial blood by [facility] [place] [place] Pulse oximetry Branch Procedures Procedure Date / Time Performing Clinician Source Performed PAP SMEAR-LIQUID BASED-CP 2022-09-08 18:47:00 Leyla Heard [facility] PATIENT FINANCIAL 2022-09-02 15:08:17 Doctor Unassigned, [facility] [place] [facility] [facility] ASSIGNMENT OF BENEFITS 2022-06-10 15:35:53 Doctor Unassigned, [facility] CONSENT FOR CONTRACEPTION 2021-12-17 05:01:00 Doctor Unassigned, [facility] POCT TEST 2021-12-17 00:00:00 Adum, Alda Savage [facility] CBC WITH DIFF 2021-11-08 08:40:00 Adum, Alda Savage [facility] CBC WITH DIFF 2021-11-08 08:40:00 Adum, Alda Savage [facility] VENOUS CORD GAS 2021-11-07 17:48:00 Adum, Alda Savage [facility] VENOUS CORD GAS 2021-11-07 17:48:00 Adum, Alda Savage [facility] SECTION 2021-11-07 17:00:00 Adum, Alda Savage [facility] CBC WITH DIFF 2021-11-06 20:44:00 Adum, Alda Savage [facility] HEPATITIS B SURFACE 2021-11-06 20:44:00 Adum, Alda Savage [facility] ANTIGEN [facility] ADC OR MEG ONLY - RPR 2021-11-06 20:44:00 [facility]um[facility]/2 AG-AB WITH REFLEX 2021-11-06 20:44:00 Adum, Alda Savage [facility] COVID-19 (ID NOW RAPID 2021-11-06 20:44:00 Adum, Alda Savage [facility] TESTING) Medical Branch LAB ONLY COVID 2021-11-06 20:44:00 Adum, Alda Savage [facility] CBC WITH DIFF 2021-11-06 20:44:00 Adum, Alda Savage [facility] HEPATITIS B SURFACE 2021-11-06 20:44:00 Adum, Alda Savage [facility] ANTIGEN [facility] ADC OR MEG ONLY - RPR 2021-11-06 20:44:00 Adum, [facility] HIV 1/2 AG-AB WITH REFLEX 2021-11-06 20:44:00 Adum, [facility] COVID-19 (ID NOW RAPID 2021-11-06 20:44:00 Adum, Alda Savage [facility] TESTING) Medical Branch LAB ONLY COVID 2021-11-06 20:44:00 Adum, Alda Savage [facility] INTERPRETATION [facility] Branch HB ABO GROUPING 2021-11-06 20:43:00 Adum, Alda Savage [facility] RHO (D) IMMUNE GLOBULIN 2021-11-06 20:43:00 Adum, Alda Savage [facility] HB ABO GROUPING 2021-11-06 20:43:00 Adum, Alda Savage [facility] RHO (D) IMMUNE GLOBULIN 2021-11-06 20:43:00 Adum, Alda Savage [facility] HOSPITAL ADMISSION 2021-11-06 05:01:00 Doctor Gary [facility] Name Medical Branch POCT URINALYSIS W/O 2021-11-05 20:18:00 Adum, Alda Savage [facility] [place] CONSENT/REFUSAL FOR 2021-11-05 07:05:37 Doctor Vega [facility] DIAGNOSIS AND TREATMENT [facility] DSU PRE-OP 2021-10-30 05:01:[address] [facility] [place] [facility] >14 WEEKS US 2021-10-28 23:13:10 Nas Lowe [facility] [place] DSU PRE-OP 2021-10-28 05:01:[address] [facility] POCT URINALYSIS W/O 2021-10-28 00:00:00 Nas Lowe [facility] [place] NOTICE OF PRIVACY 2021-10-26 22:05:04 Doctor Vega [facility] PRACTICES [facility] [facility] ASSIGNMENT OF BENEFITS 2021-10-26 22:04:32 Doctor Gary [facility] L&D VISIT (NON-DELIVERED) 2021-10-26 05:01:[address] [facility] [place] [facility] L&D VISIT (NON-DELIVERED) 2021-10-26 05:01:00 Doctor Unassigned, [facility] POCT URINALYSIS W/O 2021-10-15 16:12:00 Adum, Alda Hussein [facility] SPECIFIC Psychiatric hospital POCT URINALYSIS W/O 2021-09-23 00:00:00 Adum, Alda Hussein [facility] POCT URINALYSIS W/O 2021-09-09 00:00:00 Adum, Alda Hussein [facility] URINE CULTURE 2021-08-28 17:02:00 Nas Molina [facility] GLUCOSE 1 HOUR POST 2021-08-28 16:52:00 Nas Molina [facility] CBC WITH DIFF 2021-08-28 16:52:00 Nas Molina [facility] Encounters Start End Encounter Admission Attending Care Care Encounter Source Date/Time Date/Time Type Type Clinicians Facility Department ID 2021-02-17 Emergency [facility] [id number] Univers 12:12:23 ity [facility] 2021-02-17 Emergency [facility] [id number] Univers 07:16:52 ity [facility] 2021-02-16 Emergency [facility] [id number] Univers 23:43[facility] 2021-02-14 Emergency [facility] [id number] Univers 14:12:20 [facility] 2023-09-14 2023-09-14 Outpatient R JOAQUIN HEARD [facility] [place] [id number] Univers 13:30:00 13:30:00 JOAQUIN HEARD kimmy [facility] 2022-11-25 2022-11-25 Outpatient R [facility] [id number] Univers 11:00:00 11:00:00 [facility] 2022-11-18 2022-11-18 Outpatient R JOAQUIN HEARD [facility] B [id number] Univers 15:30:00 15:30:00 JOAQUIN HEARD [facility] 2022-09-08 2022-09-08 Outpatient R JOAQUIN HEARD [facility] B [id number] Univers 13:00:00 13:47:12 JOAQUIN HEARD [facility] 2022-09-08 2022-09-08 Office Hortensia [facility] 1.2.840.114 [id number] Univers 13:00:00 13:47:12 Visit Joaquin PEREZ 350.1.13.10 it [place] [id number] [address] 2022-09-02 2022-09-02 Nurse [facility] 1.2.840.114 [id number] Univers 10:30:00 10:30:00 Visit DonnaJoaquin sanchez 350.1.13.1 0 [place] [id number] [address] 2022-09-02 2022-09-02 Outpatient R JOAQUIN HEARD [facility] B [id number] [facility] 10:30:00 10:26:[address] [facility] 2022-09-02 2022-09-02 Orders Doctor CUTLER 1.2.840.114 [id number] Univers 00:00:00 00:00:00 Only Unassigned, ANAIS 350.1.13.10 ity of [place] [facility] 4.2.7.2.686 Kevyn as [id number] [address] 2022-08-24 2022-08-24 Outpatient R JOAQUIN HEARD [facility] B [id number] Univers 15:00:00 15:00:00 SYLWIAJOAQUIN ROBIN [facility] 2022-06-10 2022-06-10 Nurse Nurse, [facility] [place] [place] 1.2.840.114 [id number] Univers 09:45:00 10:03:47 Visit Alda Flores 350.1.13.10 it[place] [id number] [address] 2022-06-10 2022-06-10 [facility] [id number] Univers 10:00:00 10:00:00 ALDA herndon [facility] 2022-06-10 2022-06-10 Outpatient [facility] [id number] Univers 09:45:00 09:45:00 ALDA herndon [facility] 2022-06-10 2022-06-10 Orders Doctor HE 1.2.840.114 [id number] Univers 00:00:00 00:00:00 Only Unassigned, ANAIS 350.1.13.10 ity of [place] [facility] 4.2.7.2.686 Kevyn as [id number] [address] 2022-05-18 2022-05-18 Telephone [facility] 1.2.840.114 [id number] Univers 00:00:00 00:00:00 Amira PEREZ 350.1.13.10 it [place] [id number] [address] 2022-05-14 2022-05-14 Telephone [facility] 1.2.840.11 [id number] Univers 00:00:00 00:00:00 Joaquin PEREZ 350.1.13.10 [place] [id number] [address] 2022-05-13 2022-05-13 Telephone [facility] 1.2.840.11 [id number] Univers 00:00:00 00:00:00 Joaquin PEREZ 350.1.13.10 it [place] [id number] [address] 2022-05-13 2022-05-13 Telephone [facility] 1.2.840.11 [id number] Univers 00:00:00 00:00:00 Joaquin PEREZ 350.1.13.10 [place] [id number] [address] 2022-05-12 2022-05-12 Outpatient R JOAQUIN HEARD [facility] B [id number] Univers 10:30:00 10:38:04 JOAQUIN HEARD itkimmy [facility] 2022-05-12 2022-05-12 Office Hortensia [facility] 1.2.840.114 [id number] Univers 10:30:00 10:38:04 Visit Joaquin ANA 350.1.13.10 it [place] [id number] [address] 2022-05-12 2022-05-12 Letter [facility] [id number] [id number] Univers 00:00:00 00:00:00 (Out) Alda Hussein ANA 350.1.13.10 i ty [place] [id number] [address] 2022-03-18 2022-03-18 Outpatient R [facility] [id number] Univers 10:30:00 10:59:02 [facility] 2022-03-18 2022-03-18 Nurse Nurse, Enioj [facility] 1.2.840.114 [id number] Univers 10:30:00 10:59:02 Visit Alda Flores 350.1.13.10 [place] [id number] [address] 2022-03-11 2022-03-11 Outpatient R [facility] [id number] Univers 10:30:00 10:30:00 ity [facility] 2021-12-24 2021-12-24 Outpatient R [facility] [id number] Univers 13:15:00 13:15:00 [facility] 2021-12-17 2021-12-17 Outpatient R [facility] [id number] Univers 13:00:00 13:42:29 [facility] 2021-12-17 2021-12-17 [facility]ine [facility] 1.2.125.433 [id number] Univers 13:00:00 13:42:29 Alda PEREZ 350.1.13.10 ity of [place] [id number] [address] 2021-12-17 2021-12-17 Orders Doctor HE 1.2.840.114 [id number] Univers 00:00:00 00:00:00 Only Unassigned, ANAIS 350.1.13.10 ity of [place] [facility] 4.2.7.2.686 [place] [id number] [place] [address] Branch 2021-11-19 2021-11-19 Outpatient R [facility] [id number] Univers 13:00:00 13:42:25 ALDA ity of [facility] 2021-11-19 2021-11-19 Routine [facility] 1.2.430.882 [id number] Univers 13:00:00 13:42:25 Alda Hussein ANA 350.1.13.10 ity of [place] [id number] [address] 2021-11-06 2021-11-09 Inpatient P [facility] DAWIT [id number] Univers 11:23:00 09:02:00 ALDA ity of [facility] 2021-11-06 2021-11-09 Hospital [facility] 1.2.840.114 [id number] Univers 11:23:00 09:02:00 Encounter Alda DORSEY 350.1.13.10 ity [facility] 4.2.7.2.686 [facility] s [place] [id number] [address] 2021-11-08 2021-11-08 [facility] 1.2.840.114 [id number] Univers 20:02:02 20:02:02 Event Mikel DORSEY 350.1.13.10 i ty of [place] 4.2.7.2.686 [facility] [place] [id number] [address] 2021-11-07 2021-11-07 Surgery [facility] 1.2.840.114 [id number] Univers 08:20:00 10:07:00 Alda DORSEY 350.1.13.10 ity of [place] 4.2.7.2.686 [facility] [id number] [facility] 013 Branch 2021-11-06 2021-11-06 Orders Doctor HE 1.2.840.114 [id number] Univers 00:00:00 00:00:00 Only Unassigned, ANAIS 350.1.13.10 ity of [place] [facility]OSPITAL 4.2.7.2.686 [place]ev[place] as [id number] [facility] 009 [place] 2021-11-05 2021-11-05 Outpatient R [facility] [id number] Univers 15:30:00 16:02:34 ALDA ity of [facility] 2021-11-05 2021-11-05 [facility]ine [facility] 1.2.616.030 [id number] Univers 15:30:00 16:02:34 Alda PEREZ 350.1.13.10 ity of Visit WOMEN'S 4.2.7.2.686 [facility] [id number] [facility] 134 Branch 2021-11-05 2021-11-05 [facility] [id number] Univers 02:10:00 03:07:00 SERENITY ity of [facility] 2021-11-05 2021-11-05 [facility] 1.2.840.114 [id number] Univers 02:10:00 03:07:00 Encounter Serenity R HEALTH 350.1.13.10 ity of [place] 4.2.7.2.686 [facility] [id number] [facility] 119 Branch (CLC) 2021-10-30 2021-10-30 Orders Doctor HE 1.2.840.114 [id number] Univers 00:00:00 00:00:00 Only Unassigned, ANAIS 350.1.13.10 ity of [place] HOSPITAL 4.2.7.2.686 [place]evyn as [id number] [facility] 009 Branch 2021-10-28 2021-10-28 Outpatient R [facility] [id number] Univers 13:00:00 13:44:56 NAS ity [facility] 2021-10-28 2021-10-28 Routine HarryNas eaton [facility] 1.2.840.11 [id number] Univers 13:00:00 13:44:56 Adum, Alda DORSEY 350.1.13.10 ity of Visit [place] 4.2.7.2.686 [place] [facility] [id number] Ct dical [address] 2021-10-28 2021-10-28 Orders Doctor HE 1.2.840.114 [id number] Univers 00:00:00 00:00:00 Only Unassigned, ANAIS 350.1.13.10 ity of [place] [facility]OSPITAL 4.2.7.2.686 [place] as [id number] [address] 2021-10-26 2021-10-26 Outpatient P ROSAMARGARITAN [facility] DAWIT [id number] Univers 17:25:00 18:06:00 ity of [facility] 2021-10-26 2021-10-26 [facility] [place] Jean [facility] 1.2.840.1 [id number] Univers 17:25:00 18:06:00 Encounter Nayana Sierra WILLIAN 350.1.13.10 ity of [place] 4.2.7.2.686 [place] [id number] [facility] 083 [place] 2021-10-26 2021-10-26 Orders Doctor HE 1.2.840.114 [id number] Univers 00:00:00 00:00:00 Only Unassigned, ANAIS 350.1.13.10 ity of [place] HOSPITAL 4.2.7.2.686 [place]ev[place] as [id number] [facility] 009 [place] 2021-10-15 2021-10-15 Outpatient R ADUM, [facility] [id number] Univers 11:00:00 11:30:28 ALDA ity [facility] 2021-10-15 2021-10-15 Routine Adum, [facility] 1.2.840.114 [id number] Univers 11:00:00 11:30:28 Alda DORSEY 350.1.13.10 ity of [facility] 4.2.7.2.686 [place] PROF[place]IO [id number] Ct dical NAL [address] [place] [address] 2021-10-15 2021-10-15 Outpatient R ADUM, [facility] [id number] Univers 10:15:00 10:15:00 ALDA ity of [facility] 2021-09-24 2021-09-24 Case Adum, [facility] 1.2.840.114 [id number] Univers 00:00:00 00:00:00 Management Alda DORSEY 350.1.13.10 ity of [facility] 4.2.7.2.686 [place] PROFESS[place] [id number] Ct dical NAL [address] [place] [address] 2021-09-24 2021-09-24 Patient Adum, [facility] 1.2.791.628 [id number] Univers 00:00:00 00:00:00 Secure Msg Alda Savage ANA 350.1.13.10 ity of [place] [id number] [address] 2021-09-23 2021-09-23 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, Adc Lab [facility] 1.2.840.114 [id number] Univers 09:15:00 09:30:00 Visit Adum, Alda DORSEY 350.1.13.10 ity of [facility] 4.2.7.2.686 [place] PROFESSIO [id number] Ct dical NAL [address] [place] [address] 2021-09-23 2021-09-23 Outpatient R ADUM, [facility] [id number] Univers 08:15:00 09:04:02 ALDA ity of [facility] 2021-09-23 2021-09-23 Routine Ad, [facility] 1.2.840.114 [id number] Univers 08:15:00 09:04:02 Alda DORSEY 350.1.13.10 ity of Visit [place] 4.2.7.2.[place] PROFESSIO [id number] Ct dical NAL [address] [place] [address] 2021-09-16 2021-09-16 Telephone Adum, [facility] 1.2.830.389 [id number] Univers 00:00:00 00:00:00 Alda Savage WILLIAN 350.1.13.10 ity of [place] 4.2.7.2.686 [place] [id number] [address] 2021-09-11 2021-09-11 Outpatient Cristian [facility] [id number] Univers 14:45:00 14:45:00 NAS herndon [facility] 2021-09-10 2021-09-10 Outpatient Cristian [facility] [id number] Univers 14:45:00 14:45:00 ELIZABETH herndon [facility] 2021-09-09 2021-09-09 Outpatient R [facility] [id number] Univers 14:00:00 15:03:27 ALDA [facility] 2021-09-09 2021-09-09 Routine [facility] 1..840.114 [id number] Univers 14:00:00 15:03:27 Alda DORSEY 350.1.13.10 ity of [place] 4.2.7.2.[place] [id number] [address] 2021-08-28 2021-08-28 Outpatient Cristian [facility] [id number] Univers 10:30:00 12:02:45 NAS herndon [facility] 2021-08-28 2021-08-28 Routine [facility] ..840.114 [id number] Univers 10:30:00 12:02:45 Nas COACH DRIVER 350.1.13.10 i ty of Visit [facility] 4.2.7.2.686 Kevyn as MATERNAL [id number] [facility] ical & CHILD [address] [place] [address] 2021-08-25 2021-08-25 Outpatient Cristian [facility] [id number] Univers 13:00:00 13:00:00 NAS herndon [facility] 2021-08-12 2021-08-12 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 5, [facility] Room UNIVERSIT 1 .2.840.114 [id number] Univers 14:00:00 14:59:27 Visit Amira Zamudio [facility] 350.1.13.10 ity of [facility] 4.2.7.2.686 [place] [id number] [address] 2021-08-12 2021-08-12 Outpatient P [facility] [id number] Univers 14:00:00 14:00:00 ity [facility] 2021-08-12 2021-08-12 Outpatient P AMIRA ZAMUDIO [facility] [id number] Univers 14:00:00 14:00:00 AMIRA ZAMUDIO [facility] 2021-08-07 2021-08-07 Outpatient Cristian MOLINA [facility] [id number] Univers 14:45:00 14:45:00 NAS [facility] 2021-07-14 2021-07-14 Patient Jesse [facility] 1.2.840.114 [id number] Univers 00:00:00 00:00:00 Secure Msg Nas COACH DRIVER 350.1.13.10 ity of REGIONAL 4.2.7.2.686 [place]evyn as MATERNAL [id number] Med ical & CHILD [address] [place] [address] 2021-07-10 2021-07-10 Outpatient Cristian MOLINA [facility] [id number] Univers 13:45:00 14:29:01 NAS [facility] 2021-07-10 2021-07-10 [facility] 1.2.840.114 [id number] Univers 13:45:00 14:29:01 Nas COACH DRIVER 350.1.13.10 i ty of Visit REGIONAL 4.2.7.2.686 Kevyn as MATERNAL [id number] Med ical & CHILD [address] [place] [address] 2021-07-08 2021-07-08 Outpatient P [facility] [id number] Univers 14:45:00 14:45:00 ity [facility] 2021-07-02 2021-07-02 Outpatient P DEB ASCENCIO [facility] [id number] Univers 13:00:00 13:00:00 [facility] 2021-07-02 2021-07-02 Abstract Jesse [facility] 1.2.840.114 [id number] Univers 00:00:00 00:00:00 Nas COACH DRIVER 350.1.13.10 it y of REGIONAL 4.2.7.2.686 Kevyn as MATERNAL [id number] [facility] [address] [place] [address] 2021-07-01 2021-07-01 Outpatient Cristian [facility] [id number] Univers 15:45:00 15:45:00 NAS kimmy [facility] 2021-07-01 2021-07-01 Outpatient Cristian [facility] [id number] Univers 15:45:00 15:45:00 [facility] 2021-07-01 2021-07-01 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, [facility] Room UNIVERSIT [id number] Univers 13:30:00 14:45:00 Visit Alda Flores Kimmy [facility] [id number] ity [facility] [id number] [place] [id number] [address] 2021-07-01 2021-07-01 Outpatient P [facility] [id number] Univers 13:30:00 13:30:00 ALDA [facility] 2021-07-01 2021-07-01 Outpatient P VERONIQUE [facility] [facility] [id number] Univers 13:30:00 13:30:00 JELENA it y of S, [place] [facility] 2021-06-30 2021-06-30 Abstract Jesse [facility] 1.2.840.114 [id number] Univers 00:00:00 00:00:00 Nas COACH DRIVER 350.1.13.10 it y of REGIONAL 4.2.7.2.686 Kevyn as MATERNAL [phone] [facility] & CHILD [address] [place] [address] 2021-06-30 2021-06-30 Abstract Jesse [facility] 1.2.840.114 [id number] Univers 00:00:00 00:00:00 Nas COACH DRIVER 350.1.13.10 it y of REGIONAL 4.2.7.2.686 [place]ev[place] as MATERNAL [phone] [facility] & CHILD [address] [place] [address] 2021-06-06 2021-06-06 Yoel Molina [facility] 1.2.840.114 [id number] Univers 00:00:00 00:00:00 Management Nas COACH DRIVER 350.1.13.10 ity of REGIONAL 4.2.7.2.686 [place]ev[place] as MATERNAL [phone] [facility] & [address] 2021-06-05 2021-06-05 Suman Molina [facility] 1.2.840.114 [id number] Univers 00:00:00 00:00:00 Nas COACH DRIVER 350.1.13.10 it y of REGIONAL 4.2.7.2.686 [place] as MATERNAL [phone] [facility] & [address] 2021-06-03 2021-06-03 Outpatient R JESSE [facility] [id number] Univers 09:15:00 09:51:18 [facility] 2021-06-03 [facility] 1.2.840.114 [id number] Univers 09:15:00 09:51:18 Nas COACH DRIVER 350.1.13.10 i ty of Visit [facility] 4.2.7.2.686 Kevyn as MATERNAL [phone] [address] 2021-05-28 2021-05-28 Outpatient R [facility] [id number] Univers 11:30:00 11:30:00 ity [facility] 2021-05-27 2021-05-27 Outpatient R SANDRA [facility] [id number] Univers 15:30:00 16:37:59 ALDA ity [facility] 2021-05-27 2021-05-27 [facility] 1.2.840.114 [id number] Univers 15:30:00 16:37:59 Alda DORSEY 350.1.13.10 ity of [place] [phone] Ct dical NAL 134 [facility] 2021-05-27 2021-05-27 Orders Doctor HE 1.2.840.114 [id number] Univers 00:00:00 00:00:00 Only Unassigned, ANAIS 350.1.13.10 ity of [place] [facility] 4.2.7.2.686 Kevyn as [phone] [address] 2021-04-29 2021-04-29 Routine Adum, [facility] 1.2.840.114 [id number] Univers 13:15:00 14:28:40 Alda DORSEY 350.1.13.10 ity of [place] [phone] Ct dical NAL 134 [facility] 2021-04-29 2021-04-29 Outpatient R ADUM, [facility] [id number] Univers 13:15:00 14:28:40 ALDA ity [facility] 2021-04-29 2021-04-29 Outpatient R ADUM, [facility] [id number] Univers 13:15:00 13:15:00 ALDA ity [facility] 2021-04-29 2021-04-29 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, Adc Lab [facility] 1.2.840.114 [id number] Univers 13:00:00 13:13:08 Visit AdumAlda 350.1.13.10 ity of [place].7.2.[place] [id number] Ct dical NAL 353 [facility] 2021-04-01 2021-04-01 Initial Adum, [facility] 1.2.840.114 [id number] Univers 14:40:49 16:35:02 Alda DORSEY 350.1.13.10 ity of Visit [place] 4[place].7.2.[place] [phone] Ct dical NAL 134 [facility] 2021-04-01 2021-04-01 Outpatient R ADUM, [facility] [id number] Univers 14:30:00 16:35:02 ALDA [facility] 2021-04-01 2021-04-01 Orders Doctor HE 1.2.840.114 [id number] Univers 00:00:00 00:00:00 Only Unassigned, ANAIS 350.1.13.10 ity of [place] [address]686 Kevyn as [phone] [address] 2020-12-02 2020-12-03 Emergency Brendan, [facility] 1.2.840.114 [id number] Univers 23:41:00 02:29:00 [facility] 350.1.13.10 it y of [place] [address]..2.686 [facility] [phone] [address] ([facility]) 2020-12-02 2020-12-03 Emergency X BRENDAN, [facility] ERT [id number] Univers 23:41:00 02:29:00 RANJIT [facility] 2020-11-18 2020-11-18 [facility] 1.2.296.739 [id number] Univers 15:36:25 16:49:17 Visit 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 350.1.13.10 ity of [place] [address]..2.68 Kevyn as MATERNAL [phone] Med ical & CHILD [address] [place] [address] 2020-11-18 2020-11-18 Outpatient R BRIGID [facility] [id number] Univers 15:30:00 16:49:17 VIDAL herndon o f [facility] 2020-11-16 2020-11-16 Emergency [facility] 1.2.840.114 [id number] Univers 13:30:00 15:04:00 [facility] 350.1.13.10 it y of [address] [place] [phone] ([facility]) 2020-11-15 2020-11-15 [facility]phone [facility] 1.2.840.114 [id number] Univers 00:00:00 00:00:00 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 350.1.13.10 ity of [facility] 4.2.7.2.686 Kevyn as MATERNAL [phone] [facility] & CHILD [address] [place] [address] 2020-11-15 2020-11-15 Telephone Brigid [facility] 1.2.840.114 [id number] Univers 00:00:00 00:00:00 Vidal C COACH DRIVER 350.1.13.10 ity of [facility] 4.2.7.2.686 Kevyn as MATERNAL [phone] [facility] ical & CHILD [address] [place] [address] 2020-10-26 2020-10-26 Emergency [facility], [facility] 1.2.813.043 [id number] Univers 13:31:00 14:01:00 [facility] 350.1.13.10 it y of [place] 4[place]2.7.2.686 [place] [phone] [address] ([facility]) 2020-09-26 2020-09-26 Telephone HE Martin 1.2.840.114 [id number] Univers 00:00:00 00:00:00 Serenity Jorge A MANZO 350.1.13.10 it y of [facility] 4.2.7.2.686 Kevyn as [phone] [address] 2020-09-24 2020-09-24 Emergency Brendan, [facility] 1.2.840.114 [id number] Univers 00:29:00 04:04:00 Ranjit [facility] 350.1.13.10 it y of [place].2.686 [place] [id number] [address] ([facility]) 2020-05-01 2020-05-01 Outpatient R SANDRA, [facility] [id number] Univers 10:00:00 10:00:00 ALDA itkimmy of [facility] 2020-04-09 2020-04-09 Case [facility] 1.2.840.114 [id number] Univers 00:00:00 00:00:00 Management Alda Dorsey 350.1.13.10 ity of [place] [phone] [address] 2020-04-09 2020-04-09 Telephone Adum, [facility] 1.2.309.435 [id number] Univers 00:00:00 00:00:00 Alda [place] 350.1.13.10 ity of [place] 4[place].7.2.[place] Profess[place] [phone] Ct dical [address] 2020-04-09 2020-04-09 Case Adum, [facility] 1.2.840.114 [id number] 00:00:00 00:00:00 Management Alda [place] 350.1.13.10 [place] 4.2.7.2.686 Professio [phone] [address] 2020-04-09 2020-04-09 Telephone Adum, [facility] 1.2.128.266 [id number] 00:00:00 00:00:00 Alda [place] 350.1.13.10 [place] 4.2.7.2.686 Professio [phone] [address] 2020-04-03 2020-04-03 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, 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 Lab [facility] 1.2.840.114 [id number] [facility] 11:10:08 11:25:08 Visit Adum, Alda [place] 350.1.13.10 ity of [place]2.7.2.[place] Profess[place] [phone] Ct dical [address] 2020-04-03 2020-04-03 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, 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 Lab [facility] 1.2.840.114 [id number] 11:10:08 11:25:08 Visit [place] 350.1.13.10 [place] 4.2.7.2.686 Professio [phone] [address] 2020-04-03 2020-04-03 Initial Adum, [facility] 1.2.840.114 [id number] Univers 09:10:01 11:06:47 Alda L [place] 350.1.13.10 ity of Visit [place]2.7.2.[place] Profess[place] [phone] Ct dical [address] 2020-04-03 2020-04-03 Initial Adum, [facility] 1.2.840.114 [id number] 09:10:01 11:06:47 Alda Savage [place] 350.1.13.10 Visit [place] 4.2.7.2.686 [facility] [phone] [address] 2020-04-03 2020-04-03 Outpatient R [facility] [id number] Univers 09:30:00 09:30:00 ALDA jovannykimmy [facility] 2020-01-12 2020-01-12 Outpatient R [facility]OT[facility] [id number] Univers 14:15:00 14:15:00 SERENITY herndon [facility] 2019-12-11 2019-12-11 Emergency [facility] 1.2.840.114 [id number] Univers 14:40:00 16:04:00 Tony Dorsey 350.1.13.10 ity of [place] 4.2.7.2.686 [facility] [phone] [address] 2019-12-11 2019-12-11 Emergency [facility] 1.2.840.114 [id number] 14:40:00 16:04:00 Tony Dorsey 350.1.13.10 [place] 4.2.7.2.686 [place] [phone] [facility] 2019-09-22 2019-09-22 Outpatient R [facility] [id number] Univers 13:30:00 13:30:00 ity of [facility] 2019-09-06 2019-09-06 Outpatient R [facility] [id number] Univers 10:30:00 10:30:00 ity of [facility] 2019-07-11 2019-07-11 Outpatient R [facility] [id number] Univers 09:00:00 09:00:00 ity of [facility] 2019-07-07 2019-07-07 Outpatient R [facility] [id number] Univers 08:30:00 08:30:00 ity of [facility] 2019-06-23 2019-06-23 [facility]phone [facility] 1.2.840.114 [id number] Univers 00:00:00 00:00:00 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 350.1.13.10 it y of [facility] 4.2.7.2.686 Kevyn as MATERNAL [phone] Med ical & CHILD [address] [place] [address] 2019-06-23 2019-06-23 Telephone [facility] 1.2.840.114 [id number] 00:00:00 00:00:00 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 350.1.13.10 [facility] 4.2.7.2.686 MATERNAL [phone] & CHILD [address] [place] [address] 2019-06-22 2019-06-22 Office [facility] 1.2.686.874 [id number] Univers 10:45:05 11:16:50 Visit 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 350.1.13.10 it y of [facility] 4.2.7.2.686 [place]ev[place] as MATERNAL [phone] Med ical & CHILD [address] [place] [address] 2019-06-22 2019-06-22 Office [facility] 1.2.682.903 [id number] 10:45:05 11:16:50 Visit 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 350.1.13.10 [facility] 4.2.7.2.686 MATERNAL [phone] & CHILD [address] [place] [address] 2019-06-22 2019-06-22 Outpatient R [facility] [id number] Univers 10:45:00 10:45:00 SERENITY herndon [facility] 2019-06-14 2019-06-14 Nurse Visit, Ang-Rmchp Nurse [facility] 1.2 .840.114 [id number] Univers 08:45:35 09:09:56 Visit Serenity Martin COACH DRIVER 350.1.13.10 ity of [place] [address].2.7.2.686 Kevyn as MATERNAL [phone] Med ical & CHILD [address] [place] [address] 2019-06-14 2019-06-14 Outpatient R [facility] [id number] Univers 08:30:00 08:30:00 itkimmy [facility] 2019-06-14 2019-06-14 Outpatient R [facility] [id number] Univers 08:30:00 08:30:00 SERENITY herndon [facility] 2019-06-14 2019-06-14 Letter [facility] 1.2.373.252 [id number] Univers 00:00:00 00:00:00 (Out) 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 350.1.13.10 it y of REGIONAL 4.2.7.2.686 [place] as MATERNAL [phone] Med ical & CHILD [address] [place] [address] Results Test Description Test Time Test Comments Results Result Comments Source POCT TEST 2021-12-17 18:42:00 Test Item Value Reference Range Interpretation Comme nts POCT PREG (test code = 1605) Negative On board controls acceptable with C Line (test code = 3574) Yes POCT PREG LOT # (test code = 3575) POCT PREG TEST DATE (test code = 3576) [facility] [id number] 11:19:45 Test Item Value Reference Range Interpretation Comments WBC (test code = See_Comment H [Automated 5990-2) message] The system which generated this result transmit rhina reference range : 4.30 - 11.10 10*3/?L. The reference range was not used to interpret this result as normal/abnormal . RBC (test code = See_Comment L [Automated 789-8) message] The system which generated this result transmit rhina reference range : 3.93 - 5.25 10*6/?L. The reference range was not used to interpret this result as normal/abnormal . HGB (test code = 9.5 g/dL 11.6-15 L 718-7) HCT (test code = 30.0 % 35.7-45.2 L 4544-3) MCV (test code = 79.6 fL 80.6-95.5 L 787-2) MCH (test code = 25.2 pg 25.9-32.8 L 785-6) MCHC (test code = 31.7 g/dL 31.6-35.1 786-4) RDW-SD (test code = 45.3 fL 39-49.9 76691-0) RDW-CV (test code = 15.9 % 12-15.5 H 788-0) PLT (test code = See_Comment [Automated 777-3) message] The system which generated this result transmit rhina reference range : 166 - 358 10*3/ ?L. The reference range was not u sed to interpret th is result as normal/abnormal . MPV (test code = 10.1 fL 9.5-12.9 58873-5) NRBC/100 WBC (test See_Comment [Automat ed code = 3404376429) message] The system which generated this result transmit rhina reference range : 0.0 - 10.0 /100 WBCs. The reference range was not used to interpret this result as normal/abnormal . NRBC x10^3 (test code See_Comment [Auto mated = 9714456143) message] The system which generated this result transmit rhina reference range : 10*3/?L. The reference range was not used to interpret this result as normal/abnormal . GRAN MAT (NEUT) % 77.8 % (test code = 770-8) IMM GRAN % (test code 1.00 % = 8638325512) LYMPH % (test code = 10.4 % 736-9) MONO % (test code = 10.2 % 5905-5) EOS % (test code = 0.3 % 713-8) BASO % (test code = 0.3 % 706-2) GRAN MAT x10^3(ANC) 12.82 10*3/uL 1.88-7.09 H (test code = 3234704935) IMM GRAN x10^3 (test 0.16 10*3/uL 0-0.06 H code = 7826315534) LYMPH x10^3 (test code 1.71 10*3/uL 1.32-3.29 = 731-0) MONO x10^3 (test code 1.68 10*3/uL 0.33-0.92 H = 742-7) EOS x10^3 (test code = 0.05 10*3/uL 0.03-0.39 711-2) BASO x10^3 (test code 0.05 10*3/uL 0.01-0.07 = 704-7) Lab Interpretation Abnormal (test code = 07539-8) [facility] with [id number] 11:19:45 Test Item Value Reference Range Interpretation Comments WBC (test code = See_Comment H [Automated 6690-2) message] The system which generated this result transmit rhina reference range : 4.30 - 11.10 10*3/?L. The reference range was not used to interpret this result as normal/abnormal . RBC (test code = See_Comment L [Automated 789-8) message] The system which generated this result transmit rhina reference range : 3.93 - 5.25 10*6/?L. The reference range was not used to interpret this result as normal/abnormal . HGB (test code = 9.5 g/dL 11.6-15 L 718-7) HCT (test code = 30.0 % 35.7-45.2 L 4544-3) MCV (test code = 79.6 fL 80.6-95.5 L 787-2) MCH (test code = 25.2 pg 25.9-32.8 L 785-6) MCHC (test code = 31.7 g/dL 31.6-35.1 786-4) RDW-SD (test code = 45.3 fL 39-49.9 72298-3) RDW-CV (test code = 15.9 % 12-15.5 H 788-0) PLT (test code = See_Comment [Automated 777-3) message] The system which generated this result transmit rhina reference range : 166 - 358 10*3/ ?L. The reference range was not u sed to interpret th is result as normal/abnormal . MPV (test code = 10.1 fL 9.5-12.9 52100-9) NRBC/100 WBC (test See_Comment [Automat ed code = 6155606933) message] The system which generated this result transmit rhina reference range : 0.0 - 10.0 /100 WBCs. The reference range was not used to interpret this result as normal/abnormal . NRBC x10^3 (test code See_Comment [Auto mated = 0644164253) message] The system which generated this result transmit rhina reference range : 10*3/?L. The reference range was not used to interpret this result as normal/abnormal . GRAN MAT (NEUT) % 77.8 % (test code = 770-8) IMM GRAN % (test code 1.00 % = 9435605884) LYMPH % (test code = 10.4 % 736-9) MONO % (test code = 10.2 % 5905-5) EOS % (test code = 0.3 % 713-8) BASO % (test code = 0.3 % 706-2) GRAN MAT x10^3(ANC) 12.82 10*3/uL 1.88-7.09 H (test code = 3988504481) IMM GRAN x10^3 (test 0.16 10*3/uL 0-0.06 H code = 2682559540) LYMPH x10^3 (test code 1.71 10*3/uL 1.32-3.29 = 731-0) MONO x10^3 (test code 1.68 10*3/uL 0.33-0.92 H = 742-7) EOS x10^3 (test code = 0.05 10*3/uL 0.03-0.39 711-2) BASO x10^3 (test code 0.05 10*3/uL 0.01-0.07 = 704-7) Lab Interpretation Abnormal (test code = 94504-7) [facility] (D) IMMUNE [id number] 18:51:30 Test Item Value Reference Range Interpretation Comments RHIG CANDIDATE? No- see comment Patient i s not a (test code = candidate for R hIg- 5055) Patient is Rh Positive.Perfor med at [facility] Laboratory Services [facility] Blood [address] [place] [address] Free: [phone] A No. [id number] [facility] (D) IMMUNE [id number] 18:51:30 Test Item Value Reference Range Interpretation Comments RHIG CANDIDATE? No- see comment Patient i s not a (test code = candidate for R hIg- 5055) Patient is Rh Positive.Perfor med at [facility] Laboratory Services - [facility] Blood [address] [place], [place] [address]Toll Free: [phone] A No. [id number] [facility] Cord [id number] 18:08:55 Test Item Value Reference Range Interpretation Comments BASE EXCESS, CORD mEq/L (test code = 6879342375) AC PH, CORD (BEAKER) 7.18-7.38 (test code = 0308217933) PC02, CORD (test code See_Comment [Auto mated message] The = ) system which g enerated this result transmit rhina reference range : 32 - 66 mmHg. The refer ence range was not used to interpret this result as normal/abnormal . PO2, CORD (test code See_Comment [Autom ated message] The = ) system which g enerated this result transmit rhina reference range : 10 - 30 mmHg. The refer ence range was not used to interpret this result as normal/abnormal . BICARBONATE, CORD See_Comment [Automate d message] The (test code = system which ge nerated this 0245324368) result transmit rhina reference range : 17 - 27 mEq/L. The refe rence range was not used to interpret this result as normal/abnormal . [facility] Cord [id number] 18:08:55 Test Item Value Reference Range Interpretation Comments BASE EXCESS, CORD mEq/L (test code = 3149051793) AC PH, CORD (BEAKER) 7.18-7.38 (test code = 9161050489) PC02, CORD (test code See_Comment [Auto mated message] The = 3582620623) system which g enerated this result transmit rhina reference range : 32 - 66 mmHg. The refer ence range was not used to interpret this result as normal/abnormal . PO2, CORD (test code See_Comment [Autom ated message] The = ) system which g enerated this result transmit rhina reference range : 10 - 30 mmHg. The refer ence range was not used to interpret this result as normal/abnormal . BICARBONATE, CORD See_Comment [Automate d message] The (test code = system which ge nerated this 3465669071) result transmit rhina reference range : 17 - 27 mEq/L. The refe rence range was not used to interpret this result as normal/abnormal . [facility] Cord [id number] 17:57:23 Test Item Value Reference Range Interpretation Comments VENOUS BASE EXCESS, mEq/L CORD (test code = 3255760185) VENOUS PH, CORD (test 7.25-7.45 code = 5405348855) VENOUS PC02, CORD See_Comment [Automate d message] The (test code = system which ge nerated 6679169193) this result tra nsmitted reference range : 27 - 49 mmHg. The refer ence range was not used to interpret this result as normal/abnormal . VENOUS PO2, CORD (test See_Comment [Aut omated message] The code = 5384528648) system [facility] generated this result tra nsmitted reference range : 17 - 41 mmHg. The refer ence range was not used to interpret this result as normal/abnormal . VENOUS BICARBONATE, See_Comment [Automa rhina message] The CORD (test code = system [facility] generated 5162796457) this result tra nsmitted reference range : 12 - 29 mEq/L. The refe rence range was not used to interpret this result as normal/abnormal . [facility] Cord [id number] 17:57:23 Test Item Value Reference Range Interpretation Comments VENOUS BASE EXCESS, mEq/L CORD (test code = 8821032264) VENOUS PH, CORD (test 7.25-7.45 code = 5182444354) VENOUS PC02, CORD See_Comment [Automate d message] The (test code = system [facility] nerated 9829285645) this result tra nsmitted reference range : 27 - 49 mmHg. The refer ence range was not used to interpret this result as normal/abnormal . VENOUS PO2, CORD (test See_Comment [Aut omated message] The code = 8441523998) system [facility] generated this result tra nsmitted reference range : 17 - 41 mmHg. The refer ence range was not used to interpret this result as normal/abnormal . VENOUS BICARBONATE, See_Comment [Automa rhina message] The CORD (test code = system [facility] generated 9703438145) this result tra nsmitted reference range : 12 - 29 mEq/L. The refe rence range was not used to interpret this result as normal/abnormal . [facility] OR MEG ONLY - [id number] 08:28:10 Test Item Value Reference Range Interpretation Comments RPR (Qualitative) (test code = Nonreactive Nonreactive 22791-0) Lab Interpretation (test code = Normal 37228-1) [facility] OR MEG ONLY - [id number] 08:28:10 Test Item Value Reference Range Interpretation Comments RPR (Qualitative) (test code = Nonreactive Nonreactive 65575-2) Lab Interpretation (test code = Normal 48041-1) [facility] B SURFACE [id number] 05:04:58 Test Item Value Reference Range Interpretation Comments HBsAg Semi-Quantitative (test code = Negative Negative 5195-3) [facility] B SURFACE [id number] 05:04:58 Test Item Value Reference Range Interpretation Comments HBsAg Semi-Quantitative (test code = Negative Negative 5195-3) [facility]-AB WITH [id number] 22:33:12 Test Item Value Reference Range Interpretation Comments HIV Negative Negative Semi-quantitative (test code = 32391-0) PENNY (test code = Non-reactive for HIV-1 PENNY) antigen and HIV-1/HIV-2 antibodies. ?No laboratory evidence of HIV infection. ?Repeat in 2-4 weeks if acute HIV infection is suspected. [facility] [id number] 22:33:12 Test Item Value Reference Range Interpretation Comments HIV Negative Negative Semi-quantitative (test code = 31583-7) PENNY (test code = Non-reactive for HIV-1 PENNY) antigen and HIV-1/HIV-2 antibodies. ?No laboratory evidence of HIV infection. ?Repeat in 2-4 weeks if acute HIV infection is suspected. [facility] and Screen - ONCE [id number] 22:01:59 Test Item Value Reference Range Interpretation Comments ABO & RH (test code A Positive Performe d at [facility] = 20) Laboratory Serv [facility] Blood Bank1 [address] [place], [place] [address]Toll Free: [phone] A No. [id number] IAT (test code = Negative Performed a t [facility] 1185) Laboratory [facility] Blood Bank1 [address] [place], [place] [address]Toll Free: [phone] A No. [id number] [facility] and Screen - ONCE [id number] 22:01:59 Test Item Value Reference Range Interpretation Comments ABO & RH (test code A Positive Performe d at [facility] = 20) Laboratory Serv [facility] Blood Bank1 [address] [place], [place] [address]Toll Free: [phone] A No. [id number] IAT (test code = Negative Performed a t [facility] 1185) Laboratory Serv [facility] [address] [place] [phone] Free: [phone] A No. [id number] [facility] WITH [id number] 21:23:02 Test Item Value Reference Range Interpretation Comments WBC (test code = See_Comment H [Automated 6690-2) message] The system which generated this result transmit rhina reference range : 4.30 - 11.10 10*3/?L. The reference range was not used to interpret this result as normal/abnormal . RBC (test code = See_Comment [Automated 789-8) message] The system which generated this result transmit rhina reference range : 3.93 - 5.25 10*6/?L. The reference range was not used to interpret this result as normal/abnormal . HGB (test code = 11.3 g/dL 11.6-15 L 718-7) HCT (test code = 36.1 % 35.7-45.2 4544-3) MCV (test code = 78.8 fL 80.6-95.5 L 787-2) MCH (test code = 24.7 pg 25.9-32.8 L 785-6) MCHC (test code = 31.3 g/dL 31.6-35.1 L 786-4) RDW-SD (test code = 44.9 fL 39-49.9 03065-7) RDW-CV (test code = 15.8 % 12-15.5 H 788-0) PLT (test code = See_Comment [Automated 777-3) message] The system which generated this result transmit rhina reference range : 166 - 358 10*3/ ?L. The reference range was not u sed to interpret th is result as normal/abnormal . MPV (test code = 9.3 fL 9.5-12.9 L 48890-8) NRBC/100 WBC (test See_Comment [Automat ed code = 6161335372) message] The system which generated this result transmit rhina reference range : 0.0 - 10.0 /100 WBCs. The reference range was not used to interpret this result as normal/abnormal . NRBC x10^3 (test code See_Comment [Auto mated = [id number]) message] The system which generated this result transmit rhina reference range : 10*3/?L. The reference range was not used to interpret this result as normal/abnormal . GRAN MAT (NEUT) % 78.4 % (test code = 770-8) IMM GRAN % (test code 1.00 % = 5824438022) LYMPH % (test code = 12.8 % 736-9) MONO % (test code = 7.2 % 5905-5) EOS % (test code = 0.3 % 713-8) BASO % (test code = 0.3 % 706-2) GRAN MAT x10^3(ANC) 11.90 10*3/uL 1.88-7.09 H (test code = 6621718130) IMM GRAN x10^3 (test 0.15 10*3/uL 0-0.06 H code = 6590121108) LYMPH x10^3 (test code 1.95 10*3/uL 1.32-3.29 = 731-0) MONO x10^3 (test code 1.10 10*3/uL 0.33-0.92 H = 742-7) EOS x10^3 (test code = 0.05 10*3/uL 0.03-0.39 711-2) BASO x10^3 (test code 0.04 10*3/uL 0.01-0.07 = 704-7) Lab Interpretation Abnormal (test code = 79360-8) [facility] WITH [id number] 21:23:02 Test Item Value Reference Range Interpretation Comments WBC (test code = See_Comment H [Automated 8390-2) message] The system which generated this result transmit rhina reference range : 4.30 - 11.10 10*3/?L. The reference range was not used to interpret this result as normal/abnormal . RBC (test code = See_Comment [Automated 889-8) message] The system which generated this result transmit rhina reference range : 3.93 - 5.25 10*6/?L. The reference range was not used to interpret this result as normal/abnormal . HGB (test code = 11.3 g/dL 11.6-15 L 718-7) HCT (test code = 36.1 % 35.7-45.2 4544-3) MCV (test code = 78.8 fL 80.6-95.5 L 787-2) MCH (test code = 24.7 pg 25.9-32.8 L 785-6) MCHC (test code = 31.3 g/dL 31.6-35.1 L 786-4) RDW-SD (test code = 44.9 fL 39-49.9 34436-0) RDW-CV (test code = 15.8 % 12-15.5 H 788-0) PLT (test code = See_Comment [Automated 777-3) message] The system which generated this result transmit rhina reference range : 166 - 358 10*3/ ?L. The reference range was not u sed to interpret th is result as normal/abnormal . MPV (test code = 9.3 fL 9.5-12.9 L 14504-8) NRBC/100 WBC (test See_Comment [Automat ed code = 1118580851) message] The system which generated this result transmit rhina reference range : 0.0 - 10.0 /100 WBCs. The reference range was not used to interpret this result as normal/abnormal . NRBC x10^3 (test code See_Comment [Auto mated = [id number]) message] The system which generated this result transmit rhina reference range : 10*3/?L. The reference range was not used to interpret this result as normal/abnormal . GRAN MAT (NEUT) % 78.4 % (test code = 770-8) IMM GRAN % (test code 1.00 % = 2381067111) LYMPH % (test code = 12.8 % 736-9) MONO % (test code = 7.2 % 5905-5) EOS % (test code = 0.3 % 713-8) BASO % (test code = 0.3 % 706-2) GRAN MAT x10^3(ANC) 11.90 10*3/uL 1.88-7.09 H (test code = 9397456751) IMM GRAN x10^3 (test 0.15 10*3/uL 0-0.06 H code = 1779543493) LYMPH x10^3 (test code 1.95 10*3/uL 1.32-3.29 = 731-0) MONO x10^3 (test code 1.10 10*3/uL 0.33-0.92 H = 742-7) EOS x10^3 (test code = 0.05 10*3/uL 0.03-0.39 711-2) BASO x10^3 (test code 0.04 10*3/uL 0.01-0.07 = 704-7) Lab Interpretation Abnormal (test code = 47398-7) [facility] URINALYSIS W/O SPECIFIC [id number] 20:18:00 Test Item Value Reference Range Interpretation Comments POCT PH U (test code = 3254) n/a 5-8 POCT U LEUK EST (test code = 3263) n/a Negative - Negative POCT U NIT (test code = 3262) n/a Negative - Negative POCT U PROT (test code = 3259) trace Negative - Negative POCT U GLU (test code = 3256) Negative - Negative POCT U KETONE (test code = 3258) n/a Negative - Negative POCT U BLD (test code = 3257) n/a Negative - Negative [facility] URINALYSIS W/O SPECIFIC [id number] 18:32:00 Test Item Value Reference Range Interpretation Comments POCT PH U (test code = 3254) N/A 5-8 POCT U LEUK EST (test code = N/A Negative - Negative 3263) POCT U NIT (test code = 3262) N/A Negative - Negative POCT U PROT (test code = 3259) Negative Negative - Negative POCT U GLU (test code = 3256) 2+ Negative - Negative POCT U KETONE (test code = 3258) N/A Negative - Negative POCT U BLD (test code = 3257) N/A Negative - Negative [facility] URINALYSIS W/O SPECIFIC [id number] 16:12:00 Test Item Value Reference Range Interpretation Comments POCT PH U (test code = 3254) n/a 5-8 POCT U LEUK EST (test code = n/a Negative - Negative 3263) POCT U NIT (test code = 3262) n/a Negative - Negative POCT U PROT (test code = 3259) negative Negative - Negative POCT U GLU (test code = 3256) Negative - Negative POCT U KETONE (test code = 3258) n/a Negative - Negative POCT U BLD (test code = 3257) n/a Negative - [facility] [id number] 13:37:00 Test Item Value Reference Range Interpretation Comments POCT PH U (test code = 3254) n/a 5-8 POCT U LEUK EST (test code = 3263) n/a Negative - Negative POCT U NIT (test code = 3262) n/a Negative - Negative POCT U PROT (test code = 3259) neg Negative - Negative POCT U GLU (test code = 3256) Negative - Negative POCT U KETONE (test code = 3258) n/a Negative - Negative POCT U BLD (test code = 3257) n/a Negative - Negative [facility] [id number] 19:19:00 Test Item Value Reference Range Interpretation Comments POCT PH U (test code = 3254) n/a 5-8 POCT U LEUK EST (test code = n/a Negative - Negative 3263) POCT U NIT (test code = 3262) n/a Negative - Negative POCT U PROT (test code = 3259) negative Negative - Negative POCT U GLU (test code = 3256) Negative - Negative POCT U KETONE (test code = 3258) n/a Negative - Negative POCT U BLD (test code = 3257) n/a Negative - Negative [facility]
[2022-11-14 12:24] LABS: Absolute Lymphocytes (CBC) 1.9 K/uL (0.7-4.9); Hematocrit 39.5 % (36.0-45.0); Lymphocytes % 22.1 % (15.3-44.8); MCV 80.1 fL (80-100); MPV 7.1 fL (7.6-11.3); RBC Red Blood Cell Count 4.94 M/uL (3.86-4.86)
[2022-11-14 12:44] LABS: Bilirubin Total 0.4 mg/dL (0.2-1.0); Potassium 3.5 mEq/L (3.5-5.1); Protein, Total 8.4 g/dL (6.4-8.2)
[2022-11-14 12:45] LABS: Specific Gravity > 1.030 (1.005-1.030); Urine Bacteria <20 /HPF (<20); Urine Bilirubin NEGATIVE (Negative); Urine Blood Negative (Negative); Urine Color Light-Yellow (Yellow); Urine Glucose NEGATIVE (Negative); Urine Mucus 1+ /HPF (None Seen); Urine Protein TRACE (Negative); Urine RBC <5 /HPF (None Seen); Urine Urobilinogen Normal (Normal); Urine pH 5.5 (5.0-7.0)
[2022-11-14 12:46] LABS: Specific Gravity 1.035 (1.005-1.030); Urine Clarity Slightly Cloudy (Clear)
--- NOTE | 2022-11-14 13:21 | RAD REPORT ---
EXAM DESCRIPTION: CTAbdomen Pelvis W Contrast - 11/14/2022 1:06 pm CLINICAL HISTORY: Abdominal pain. ABD PAIN COMPARISON: No comparisons TECHNIQUE: Biphasic CT imaging of the abdomen and pelvis was performed with 100 ml non-ionic IV cont rast. All CT scans are performed using dose optimization technique as appropriate and may include automated exposure control or mA/KV adjustment according to patient size. FINDINGS: The lung bases are clear. The liver, spleen, pancreas, adrenal glands and kidneys are within normal limits. No bowel obstruction, free air, free fluid or abscess. The appendix is normal. Mildly enlarged lymp h nodes in the left groin, largest measuring 22 mm. No suspicious bony findings. IMPRESSION: No acute intra-abdominal or pelvic finding. Nonspecific left groin lymphadenopathy could be reactive in nature. Suggest clinical exam surveillanc e.
--- NOTE | 2022-11-14 15:53 | EDPHYS ---
Physician Documentation [facility] Name: Lorri Isaac Age: 22 yrs Sex: Female : 2000 Arrival Date: 11/14/2022 Time: 11:24 Bed 14 Private MD: ED Physician Deepak Thacker HPI: 11/14 15:53 This 22 yrs old Female presents to ER via Ambulatory with complaints of ms3 Abdominal Pain. 15:53 22-year-old female with no past medical history presents for 2 weeks of left lower ms3 quadrant abdominal pain. Patient has noticed some swelling in her left groin. Patient states her discomfort is a 6/10 and described as pressure patient endorses diarrhea. Patient denies fevers, chills, nausea, vomiting. Patient endorses cough and congestion.. 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 - Social history:: Smoking status: Patient denies any tobacco usage or history of. ROS: 15:53 Constitutional: Negative for fever, and chills. Neck: Negative for injury, pain, and ms3 swelling, Cardiovascular: Negative for chest pain, and palpitations. Respiratory: Negative for shortness of breath, cough, wheezing, and pleuritic chest pain. 15:53 MS/Extremity: Negative for injury and deformity, Skin: Negative for injury, rash, and discoloration. 15:53 Abdomen/GI: Positive for abdominal pain. 15:53 All other systems are negative. Exam: 15:53 Constitutional: This is a well developed, well nourished patient who is awake, alert, ms3 and in no acute distress. Head/Face: Normocephalic, atraumatic. Neck: Trachea midline, no cervical lymphadenopathy. Supple, full range of motion without nuchal rigidity, or vertebral point tenderness. No Meningismus. Chest/axilla: Normal chest wall appearance and motion. Nontender with no deformity. Cardiovascular: Regular rate and rhythm with a normal S1 and S2. No gallops, murmurs, or rubs. Normal PMI, no JVD. No pulse deficits. Respiratory: Lungs have equal breath sounds bilaterally, clear to auscultation and percussion. No rales, rhonchi or wheezes noted. No increased work of breathing, no retractions or nasal flaring. 15:53 Abdomen/GI: Inspection: abdomen appears normal, Bowel sounds: normal, in all quadrants, Palpation: mild abdominal tenderness, in the left lower quadrant. Vital Signs: 11:32 BP 116 / 75; Pulse 104; Resp 16; Temp 98.4(TE); Pulse Ox 99% ; Weight 70.31 kg; Height ll1 5 ft. 5 in. ; Pain 6/10; 13:05 BP 113 / 77; Pulse 75; Resp 16; Pulse Ox 98% on R/A; nj1 14:00 BP 120 / 95; Pulse 81; Resp 17; Pulse Ox 98% on R/A; nj1 15:00 BP 105 / 64; Pulse 76; Resp 16; Pulse Ox 99% ; nj1 16:00 BP 108 / 66; Pulse 71; Resp 18; Pulse Ox 99% on R/A; nj1 11:32 Body Mass Index 25.79 (70.31 kg, 165.1 cm) ll1 11:32 Pain Scale: Adult ll1 MDM: 12:06 Patient medically screened. ms3 15:53 Differential diagnosis: diverticulitis, non-specific abd pain, Hernia. Data reviewed: ms3 vital signs, nurses notes, lab test result(s), radiologic studies, and as a result, I will discharge patient. Care significantly affected by the following Social Determinants of Health: Poor access to healthcare and/or lack of insurance. Counseling: I had a detailed discussion with the patient and/or guardian regarding: the historical points, exam findings, and any diagnostic results supporting the discharge/admit diagnosis, lab results, radiology results, the need for outpatient follow up, to return to the emergency department if symptoms worsen or persist or if there are any questions or concerns that arise at home. Response to treatment: the patient's symptoms have markedly improved after treatment, and as a result, I will discharge patient. Special discussion: Based on the patient's Hx, exam, and Dx evaluation, there is no indication for emergent surgery or inpatient Tx. It is understood by the patient/guardian that if the Sx's persist or worsen they need to return immediately for re-evaluation. 11/14 12:01 Order name: CBC with Diff; Complete Time: 14:30 ms3 11/14 12:01 Order name: CMP; Complete Time: 14:30 ms3 11/14 12:01 Order name: Test, Urine; Complete Time: 14:30 ms3 11/14 12:01 Order name: Urinalysis w/ reflexes; Complete Time: 14:30 ms3 11/14 12:49 Order name: Urine Culture EDME 11/14 12:01 Order name: CT Abd/Pelvis - IV Contrast Only; Complete Time: 14:30 ms3 11/14 12:01 Order name: IV Saline Lock; Complete Time: 12:27 ms3 11/14 12:01 Order name: Labs collected and sent; Complete Time: 12: ms3 Administered Medications: No medications were administered Disposition Summary: 11/14/22 15:52 Discharge Ordered Location: Home ms3 Condition: Stable ms3 Diagnosis - Lower abdominal pain, unspecified ms3 - Left groin lymphadenopathy ms3 Followup: ms3 - With: Private Physician - When: 2 - 3 days - Reason: Recheck today's complaints Discharge Instructions: - Discharge Summary Sheet ms3 - Abdominal Pain, Adult ms3 - Lymphadenopathy ms3 Forms: - Medication Reconciliation Form ms3 - Thank You Letter ms3 - Antibiotic Education ms3 - Prescription Opioid Use ms3 - Patient Portal Instructions ms3 Signatures: Dispatcher [employer] Issac Sanz RN RN ll1 Deepak Thacker DO DO ms3
--- NOTE | 2022-11-14 15:53 | ER ---
Nurse's Notes [facility] Name: Lorri Isaac Age: 22 yrs Sex: Female : 2000 Arrival Date: 11/14/2022 Time: 11:24 Bed 14 Private MD: Diagnosis: Lower abdominal pain, unspecified;Left groin lymphadenopathy Presentation: 11/14 11:32 Coronavirus screen: Vaccine status: Patient reports being unvaccinated. Client denies ll1 travel out of the [place] in the last 14 days. At this time, the client does not indicate any symptoms associated with coronavirus-19. Ebola Screen: Patient denies travel to an Ebola-affected area in the 21 days before illness onset. Initial Sepsis Screen: Does the patient meet any 2 criteria? No. Patient's initial sepsis screen is negative. Does the patient have a suspected source of infection? Yes: Acute abdominal pain. Risk Assessment: Do you want to hurt yourself or someone else? Patient reports no desire to harm self or others. Onset of symptoms was October 30, 2022. 11:32 Method Of Arrival: Ambulatory 1 11:32 Acuity: GLORIA 3 ll1 11:46 Chief complaint: Patient states: Reports L sided groin pain with a knot for 2 weeks. No ll1 fever, some diarrhea. Triage Assessment: 11:36 General: Appears uncomfortable, Behavior is calm, cooperative, appropriate for age. ll1 Pain: Complains of pain in pelvis Pain currently is 6 out of 10 on a pain scale. Quality of pain is described as aching, Pain began 2 weeks ago. GI: Reports lower abdominal pain, upper abdominal pain, diarrhea. Derm: Abscess located on L groin Reports pain abscess L groin. 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 - Social history:: Smoking status: Patient denies any tobacco usage or history of. Screenin:[facility] ED Fall Risk Assessment (Adult) History of falling in the last 3 months, nj1 including since admission No falls in past 3 months (0 pts) Confusion or Disorientation No (0 pts) Intoxicated or Sedated No (0 pts) Impaired Gait No (0 pts) Mobility Assist Device Used No (0 pt) Altered Elimination No (0 pt) Score/Fall Risk Level 0 - 2 = Low Risk Oriented to surroundings, Maintained a safe environment, Hourly rounding (assess needs \\T\\ fall precautionary measures) done. Abuse screen: Denies threats or abuse. Denies injuries from another. Nutritional screening: No deficits noted. Tuberculosis screening: No symptoms or risk factors identified. Assessment: 11:59 Reassessment: See triage assessment. banner 13:00 Reassessment: Patient appears in no apparent distress at this time. Patient and/or nj1 family updated on plan of care and expected duration. Pain level reassessed. Patient is alert, oriented x 3, equal unlabored respirations, skin warm/dry/pink. 14:00 Reassessment: Patient appears in no apparent distress at this time. Patient and/or nj1 family updated on plan of care and expected duration. Pain level reassessed. Patient is alert, oriented x 3, equal unlabored respirations, skin warm/dry/pink. 15:00 Reassessment: Patient appears in no apparent distress at this time. Patient and/or nj1 family updated on plan of care and expected duration. Pain level reassessed. Patient is alert, oriented x 3, equal unlabored respirations, skin warm/dry/pink. 16:00 Reassessment: Patient appears in no apparent distress at this time. Patient and/or nj1 family updated on plan of care and expected duration. Pain level reassessed. Patient is alert, oriented x 3, equal unlabored respirations, skin warm/dry/pink. Vital Signs: 11:32 BP 116 / 75; Pulse 104; Resp 16; Temp 98.4(TE); Pulse Ox 99% ; Weight 70.31 kg; Height ll1 5 ft. 5 in. ; Pain 6/10; 13:05 BP 113 / 77; Pulse 75; Resp 16; Pulse Ox 98% on R/A; nj1 14:00 BP 120 / 95; Pulse 81; Resp 17; Pulse Ox 98% on R/A; nm1 15:00 BP 105 / 64; Pulse 76; Resp 16; Pulse Ox 99% ; nj 16:00 BP 108 / 66; Pulse 71; Resp 18; Pulse Ox 99% on R/A; nj1 11:32 Body Mass Index 25.79 (70.31 kg, 165.1 cm) ll1 11:32 Pain Scale: Adult ll1 ED Course: 11:26 Patient arrived in ED. ts1 11:34 Triage completed. ll1 11:38 Deepak Thacker DO is Attending Physician. ms3 11:38 Arm band placed on. ll1 11:59 Soumya Ludwig, RN is Primary Nurse. nj1 12:00 Patient has correct armband on for positive identification. Bed in low position. Call nj1 light in reach. 12:00 Provided Education on: fall precautions. nj1 12:15 Inserted saline lock: 22 gauge in right antecubital area, using aseptic technique. nj1 Blood collected. 12:36 Radiology exam delayed due to test not completed at this time. mw3 13:07 CT Abd/Pelvis - IV Contrast Only In Process Unspecified. EDMS 16:00 Assessment (groin). nj1 16:00 IV discontinued, intact, bleeding controlled. nj1 Administered Medications: No medications were administered Medication: 16:13 VIS not applicable for this client. nj1 Outcome: 15:52 Discharge ordered by MD. ms3 16:00 Discharged to home ambulatory. nj1 16:00 Condition: stable 16:00 Discharge instructions given to patient, Instructed on discharge instructions, follow up and referral plans. Demonstrated understanding of instructions, follow-up care. 16:13 Patient left the ED. nj1 Signatures: Dispatcher [employer] EDMS Salome Balderrama 3 Issac Stacy RN RN ll1 Deepak Thacker DO DO ms3 Soumya Ludwig RN RN nj1 Hodan Cm PAS PAS ts1 Corrections: (The following items were deleted from the chart) 11:34 11:32 Pulse 104bpm; Resp 16bpm; Pulse Ox 99%; Temp 98.4F Temporal; 70.31 kg; Height 5 ll1 ft. 5 in.; BMI: 25.7; Pain 6/10, Adult; ll1
[2022-11-14 16:27] VITALS: TEMP 98.4
[2022-11-14 16:40] VITALS: O2SAT 99
[2022-11-14 16:41] VITALS: BP 108/66
== END 2022-11-14 16:13 | disposition home or self-care (01) ==
LOC: ER 11:24
DX: R10.32 Left lower quadrant pain (principal); R59.0 Localized enlarged lymph nodes
CPT/HCPCS: 87088; 85025; 81001; 87086; 36415; 81025; 80053; 74177; 99284; Q9967; 87077; 87186